=== PATIENT | male | born 1960 | race Caucasian/White ===

== ENCOUNTER 2017-02-24 20:35 | Emergency (ER) | payer MEDICARE, OTHER ==
[2017-02-24 21:06] LABS: Bilirubin Negative (Negative); Blood, Urine Negative (Negative); Glucose, Urine (Dipstick) Negative (Negative); Ketone, Urine Negative (Negative); Nitrite Negative (Negative); Protein, Urine (Dipstick) Negative (Neg-Trace); Urobilinogen 0.2 mg/dL (0.2-1.0)
[2017-02-24 21:12] LABS: Amphetamine Not Detected (NotDetected); Methadone Not Detected (NotDetected); Methamphetamine Not Detected (NotDetected)
[2017-02-24 21:59] LABS: #Eosinphils 0.4 thou/uL (0.0-0.7); #Lymphocytes 2.6 thou/uL (1.20-3.40); #Monocytes 1.2 thou/uL (0.11-0.59); #Neutrophils 9.1 thou/uL (1.40-6.50); %Basophils 0.3 % (0.0-1.0); %Eosinophils 2.7 % (0.0-10.0); %Lymphocytes 19.7 % (21.0-51.0); %Monocytes 8.8 % (0.0-10.0); Hematocrit 37.1 % (42.0-52.0); Mean Platelet Volume 6.5 fL (7.4-10.4); Red Blood Cell (RBC) Count 3.91 mill/uL (4.70-6.10); White Blood Cell (WBC) Count 13.3 thou/uL (4.8-10.8)
[2017-02-24 22:25] LABS: ALT (SGPT) 17 U/L (8-55); AST (SGOT) 15 U/L (5-34); Acetaminophen Less than 6.0 mcg/mL (10.0-30.0); Alkaline Phosphatase 70 U/L (40-150); Anion Gap 13 mmol/L (10-20); BUN (Urea Nitrogen) 13 mg/dL (8.4-25.7); Bilirubin, Total 0.2 mg/dL (0.2-1.2); Calc. Creatinine Clearance 0 mL/min (70-130); Calcium 8.9 mg/dL (7.8-10.44); Carbon Dioxide 25 mmol/L (22-29); Chloride 94 mmol/L (98-107); Estimated GFR-MDRD 60; Globulin 2.9 g/dL (2.4-3.5); Protein, Total 6.6 g/dL (6.0-8.3); Salicylate Less than 8.0 mg/dL (15.0-30.0)
== END 2017-02-25 11:53 ==
LOC: ERS 20:35
DX: R45.851 Suicidal ideations (principal); E78.5 Hyperlipidemia, unspecified; I11.0 Hypertensive heart disease with heart failure; I50.9 Heart failure, unspecified; F25.9 Schizoaffective disorder, unspecified; Z79.84 Long term (current) use of oral hypoglycemic drugs; Z79.899 Other long term (current) drug therapy; Z79.82 Long term (current) use of aspirin
CPT/HCPCS: 36415; 80053; 80306; 80307; 81003; 84443; 85025; 99285

== ENCOUNTER 2017-06-20 21:32 | Emergency (ER) | payer OTHER ==
[2017-06-20 22:30] LABS: #Basophils 0.1 thou/uL (0.0-0.2); #Eosinphils 0.2 thou/uL (0.0-0.7); #Lymphocytes 1.8 thou/uL (1.20-3.40); #Monocytes 0.9 thou/uL (0.11-0.59); #Neutrophils 5.1 thou/uL (1.40-6.50); %Eosinophils 2.9 % (0.0-10.0); %Lymphocytes 21.7 % (21.0-51.0); %Monocytes 11.1 % (0.0-10.0); %Neutrophils 63.3 % (42.0-75.0); Hemoglobin 13.3 g/dL (14.0-18.0); Mean Corpuscular HGB CONC 35.5 g/dL (32.0-36.0); Mean Corpuscular Hemoglobin 32.9 pg (27.0-31.0); Mean Corpuscular Volume 92.6 fl (80.0-94.0); Mean Platelet Volume 7.1 fL (7.4-10.4); Platelet Count 185 thou/uL (130-400); RBC Distribution Width 12.2 % (11.5-14.5); Red Blood Cell (RBC) Count 4.06 mill/uL (4.70-6.10); White Blood Cell (WBC) Count 8.1 thou/uL (4.8-10.8)
[2017-06-20 22:50] LABS: Bilirubin Negative (Negative); Blood, Urine Negative (Negative); Clarity CLEAR (Clear); Glucose, Urine (Dipstick) Negative (Negative); Leukocyte Negative (Negative); Nitrite Negative (Negative); Protein, Urine (Dipstick) Negative (Neg-Trace); Specific Gravity, Urine 1.008 (1.002-1.036); Urobilinogen 0.2 mg/dL (0.2-1.0); pH, Urine 6.5 (5.0-9.0)
[2017-06-20 22:54] LABS: ALT (SGPT) 12 U/L (8-55); AST (SGOT) 12 U/L (5-34); Alkaline Phosphatase 68 U/L (40-150); Anion Gap 11 mmol/L (10-20); BUN (Urea Nitrogen) 9 mg/dL (8.4-25.7); Bilirubin, Total 0.4 mg/dL (0.2-1.2); Calc. Creatinine Clearance 0 mL/min (70-130); Calcium 9.5 mg/dL (7.8-10.44); Carbon Dioxide 26 mmol/L (22-29); Chloride 91 mmol/L (98-107); Estimated GFR-MDRD 52; Globulin 2.8 g/dL (2.4-3.5); Glucose 96 mg/dL (70-105); Lipase 35 U/L (8-78); Potassium 4.2 mmol/L (3.5-5.1); Protein, Total 6.8 g/dL (6.0-8.3); Sodium 124 mmol/L (136-145)
[2017-06-20] MEDS ORDERED: Morphine 4 MG/ML Carpuject ONE (23:30)
[2017-06-20] MEDS ORDERED: Ondansetron HCl/PF 4 MG/2 ML Vial ONE (23:30)
--- NOTE | 2017-06-20 23:34 | RAD ---
CHEST ONE VIEW 06/20/17 HISTORY: Emergency exam. COMPARISON: Chest one view 02/16/17. FINDINGS: Lungs are clear. No pneumothorax or effusion. The cardiac silhouette and mediastinal contours are within normal limits. IMPRESSION: No acute intrathoracic abnormality. No significant change. POS: [facility]
--- NOTE | 2017-06-21 13:47 | CT ---
PRELIMINARY REPORT/[facility]/EMERGENCY AFTER HOURS PROCEDURE: EXAM: CT Abdomen and Pelvis With Intravenous Contrast EXAM DATE/TIME: Exam ordered 06/21/2017 1:31 AM CLINICAL HISTORY: 57 years old, male; Pain and signs and symptoms; Nausea and vomiting; Abdominal pain; Periumbilical; Prior surgery; Patient HX: ; Er 3; M57 presents to ed C/O abd pain, onset x 3 days. Exacerbated by ea ting. Pain is generalized and quality is sharp and stabbing. Associated with n/v, feeling bloated, 1 episode of dark, tarry stool. Denies diarrhea, fever, chills. Surgical HX of bladder surgery x2. TECHNIQUE: Axial computed tomography images of the abdomen and pelvis with intravenous contrast. Coronal reformatted images were created and reviewed. COMPARISON: No relevant prior studies available. FINDINGS: Lower thorax: Trace left pleural effusion. ABDOMEN: Liver: Unremarkable. No mass. Gallbladder and bile ducts: Cholelithiasis. No cholecystitis or biliary ductal dilatation. Pancreas: Unremarkable. No mass. No ductal dilation. Spleen: Unremarkable. No splenomegaly. Adrenals: Unremarkable. No mass. Kidneys and ureters: Severe bilateral hydroureteronephrosis involving the length of both ureters, without obstructive urolithiasis. Substantial atrophy and cortical scarring of the left kidney. Stomach and bowel: Unremarkable. No obstruction. No mucosal thickening. Appendix: Normal appendix. PELVIS: Bladder: Urinary bladder is distended. Bladder otherwise unremarkable. Reproductive: Unremarkable as visualized. ABDOMEN and PELVIS: Intraperitoneal space: Unremarkable. No free air. No significant fluid collection. Bones/joints: No acute fracture. No dislocation. Soft tissues: Unremarkable. Vasculature: Unremarkable. No abdominal aortic aneurysm. Lymph nodes: Unremarkable. No enlarged lymph nodes. IMPRESSION: Severe bilateral hydroureteronephrosis involving the length of both ureters, without obstructive urol ithiasis. Distended urinary bladder. Thank you for allowing us to participate in the care of your patient. Dictated and Authenticated by: West Mac MD 06/21/2017 1:59 AM Central Time ([place] & [place]) FINAL REPORT EMERGENCY AFTER HOURS ABDOMEN AND PELVIC CT SCAN WITH IV CONTRAST: Date: 06/20/17 Time: 0133 hours FINDINGS/IMPRESSION: Severe bilateral hydroureteronephrosis involving the entire ureters, somewhat worse on the right side , but stable from 06/17/15 study. Severe scarring of the left kidney with considerable left renal vol ume loss. Small gallstone without gallbladder wall thickening or pericholecystic fluid. Normal appear ing appendix. No renal or calculi. IMPRESSION: Severe but overall stable bilateral ureteropelvic hydronephrosis, greater on the right side. Severe s carring left kidney. Small gallstone. No evidence for other significant acute process. Report in agreement with preliminary report given on-call by Shirley. POS: [facility]
== END 2017-06-21 03:55 | disposition home or self-care (01) ==
LOC: ERS 21:32
DX: R33.9 Retention of urine, unspecified (principal); R10.9 Unspecified abdominal pain; E78.5 Hyperlipidemia, unspecified; I11.0 Hypertensive heart disease with heart failure; I50.9 Heart failure, unspecified; Z79.899 Other long term (current) drug therapy; Z79.82 Long term (current) use of aspirin
CPT/HCPCS: 36415; 51702; 71045; 74177; 80053; 81003; 83690; 85025; 96361; 96374; 96375; J2270; J2405

== ENCOUNTER 2017-07-20 07:18 | Day surgery (SDC) | payer OTHER ==
[2017-07-17 11:44] VITALS: BMI 39.4
[2017-07-20] MEDS ORDERED: Levofloxacin 500 mg/D5W 100 ml Premix Bag ONE (08:27)
[2017-07-20 08:39] LABS: #Basophils 0.1 thou/uL (0.0-0.2); #Eosinphils 0.2 thou/uL (0.0-0.7); #Lymphocytes 1.7 thou/uL (1.20-3.40); #Monocytes 0.9 thou/uL (0.11-0.59); #Neutrophils 4.8 thou/uL (1.40-6.50); %Basophils 1.2 % (0.0-1.0); %Lymphocytes 22.3 % (21.0-51.0); %Neutrophils 61.6 % (42.0-75.0); Mean Corpuscular HGB CONC 35.1 g/dL (32.0-36.0); Mean Corpuscular Hemoglobin 32.1 pg (27.0-31.0); Mean Corpuscular Volume 91.5 fl (80.0-94.0); Mean Platelet Volume 6.9 fL (7.4-10.4); Platelet Count 205 thou/uL (130-400); RBC Distribution Width 12.4 % (11.5-14.5); Red Blood Cell (RBC) Count 4.35 mill/uL (4.70-6.10); White Blood Cell (WBC) Count 7.7 thou/uL (4.8-10.8)
[2017-07-20 08:41] LABS: PTT 28.2 SEC (22.9-36.1); Prothrombin Time 13.4 SEC (12.0-14.7)
== END 2017-07-20 09:05 | disposition home or self-care (01) ==
LOC: SDC 07:18 → EEVIPCON 07:18 → SDC 09:05
PROVIDERS: ATTEND Urology
DX: N40.1 Benign prostatic hyperplasia with lower urinary tract symptoms (principal); R33.8 Other retention of urine; R39.14 Feeling of incomplete bladder emptying; E11.22 Type 2 diabetes mellitus with diabetic chronic kidney disease; I12.9 Hypertensive chronic kidney disease with stage 1 through stage 4 chronic kidney disease, or unspecified chronic kidney disease; N18.3 Chronic kidney disease, stage 3 (moderate); E87.1 Hypo-osmolality and hyponatremia; E78.5 Hyperlipidemia, unspecified; F10.10 Alcohol abuse, uncomplicated; E03.9 Hypothyroidism, unspecified; F25.9 Schizoaffective disorder, unspecified; E66.9 Obesity, unspecified; F41.9 Anxiety disorder, unspecified; F32.9 Major depressive disorder, single episode, unspecified; Z53.8 Procedure and treatment not carried out for other reasons; Z68.39 Body mass index [BMI] 39.0-39.9, adult; Z79.84 Long term (current) use of oral hypoglycemic drugs; Z79.82 Long term (current) use of aspirin; Z79.899 Other long term (current) drug therapy; Z88.8 Allergy status to other drugs, medicaments and biological substances; Z96.0 Presence of urogenital implants; Z98.890 Other specified postprocedural states; Z87.891 Personal history of nicotine dependence
CPT/HCPCS: 85025; 85610; 85730; J1956

== ENCOUNTER 2017-08-05 05:40 | Day surgery (SDC) | payer OTHER ==
[2017-08-04 16:07] VITALS: BMI 40.6
[2017-08-05 06:40] LABS: #Eosinphils 0.3 thou/uL (0.0-0.7); #Lymphocytes 1.9 thou/uL (1.20-3.40); #Monocytes 0.9 thou/uL (0.11-0.59); #Neutrophils 5.5 thou/uL (1.40-6.50); %Basophils 0.5 % (0.0-1.0); %Eosinophils 3.4 % (0.0-10.0); %Lymphocytes 22.2 % (21.0-51.0); %Monocytes 10.6 % (0.0-10.0); %Neutrophils 63.3 % (42.0-75.0); Hemoglobin 13.2 g/dL (14.0-18.0); Mean Corpuscular HGB CONC 34.4 g/dL (32.0-36.0); Mean Corpuscular Hemoglobin 31.8 pg (27.0-31.0); Mean Corpuscular Volume 92.4 fl (80.0-94.0); Mean Platelet Volume 6.9 fL (7.4-10.4); Platelet Count 168 thou/uL (130-400); RBC Distribution Width 12.3 % (11.5-14.5); Red Blood Cell (RBC) Count 4.17 mill/uL (4.70-6.10); White Blood Cell (WBC) Count 8.7 thou/uL (4.8-10.8)
[2017-08-05 06:45] LABS: Prothrombin Time 13.6 SEC (12.0-14.7)
[2017-08-05 06:52] LABS: Anion Gap 12 mmol/L (10-20); BUN (Urea Nitrogen) 19 mg/dL (8.4-25.7); Calc. Creatinine Clearance 87 mL/min (70-130); Calcium 9.2 mg/dL (7.8-10.44); Carbon Dioxide 25 mmol/L (22-29); Chloride 99 mmol/L (98-107); Estimated GFR-MDRD 43; Glucose 128 mg/dL (70-105); Potassium 4.1 mmol/L (3.5-5.1); Sodium 132 mmol/L (136-145)
[2017-08-05] MEDS ORDERED: Levofloxacin 500 mg/D5W 100 ml Premix Bag ONE (07:00)
[2017-08-05] MEDS ORDERED: Iothalamate Meglumine 60% 50 ML VIAL FS ONE (08:28)
[2017-08-05] MEDS ORDERED: Fentanyl 100 MCG/2 ML VIAL ONE (08:30)
[2017-08-05] MEDS ORDERED: Bupivacaine HCl 0.5%/Epinephrine 1:200,000/PF 30 ml Vial ONE (10:38)
--- NOTE | 2017-08-05 13:45 | OP ---
DATE OF PROCEDURE: 08/05/2017 PREOPERATIVE DIAGNOSIS: Incomplete emptying. POSTOPERATIVE DIAGNOSIS: Incomplete emptying. PROCEDURE PERFORMED: Cystoscopy and placement of suprapubic tube. SURGEON: Dr. Ziggy Ruggiero. ANESTHETIC: General and local. ESTIMATED BLOOD LOSS: Minimal. FINDINGS: He has no evidence of stricture disease. He has, at most, mild BPH. He has probably had ureteral reimplants done. Certainly, he has had some scarring on the bladder, in the bladder neck an d trigone area. The ureteral orifices appeared to be more medial than you would generally see. He d oes not have anything that would suggest he has had an augmentation, cystoplasty or anything of that nature. There is no tumor, foreign body, or stone. Did not do retrograde studies. He has had prior CAT scans that have shown some hydro, but this has been felt to be related to the fact that he had s o much fluid in his bladder when he has come into the emergency centers. His bladder has been quite distended. His creatinine is 1.67 today and that is with having had a catheter in now for a month or so, so I think now probably he is at stable renal function for him. OPERATIVE TECHNIQUE: After obtaining written and verbal consent from the patient after receiving IV antibiotics, he was taken to the operating suite. He was placed in the supine position on the [facility] ent table. PlexiPulses were placed on his lower extremities and turned on. He was given a general a nesthetic, oral obturator intubation. He was placed in the dorsal lithotomy position. He was steril lexii prepped and draped for the above procedure. Cystoscopy was performed with a 22-Icelandic sheath. T his was well lubricated, passed under direct vision through the male urethra into the urinary bladder with the aid of a video camera and monitor and a 30-degree lens. The bladder was filled and emptied a number of times and examined both 30 and 70-degree lens. At this point, going through his prior s uprapubic site, we passed a small spinal needle and sought coming to the anterior wall of the bladder under direct vision with the cystoscope. It seemed like this was in good position to use as it had been there and use this suprapubic in the path. We numbed up this area with 0.25% Marcaine with epin ephrine. We filled up his bladder until it was easily palpable and removed the scope, passed a Lowsl ey retractor, brought it to the undersurface of the suprapubic site and cut down on this site through the skin and then through the subcutaneous fat and tissues until the Lowsley came out through the in cision. We then used this to direct a 22 Icelandic Quigley catheter with a silk stitch placed around it i nto the bladder and blew up the balloon under direct vision with 30 mL. There was minimal bleeding. The instruments were removed. The Quigley catheter was also placed, 20 Icelandic, 30 mL, both irrigated well, both clear. Suprapubic site was sutured to the suprapubic tube with 0 silk stitch and dressing s were placed. The patient was taken out of the dorsal lithotomy position, awakened, extubated, and taken by stretcher to the recovery room.
[2017-08-05] MEDS ORDERED: Ondansetron HCl/PF 4 MG/2 ML Vial ONE (16:25)
[2017-08-05] MEDS ORDERED: Glycopyrrolate 0.2 MG/ML 5 ML SYRINGE ONE (16:25)
[2017-08-05] MEDS ORDERED: ePHEDrine/0.9% NaCl/PF SYRINGE 50 mg/10 ml ONE (16:25)
[2017-08-05] MEDS ORDERED: Lidocaine 1% PF 5 ML VIAL ONE (16:25)
[2017-08-05] MEDS ORDERED: PROPOFOL 200 MG/20 ML VIAL ONE (16:25)
== END 2017-08-05 13:00 | disposition home or self-care (01) ==
LOC: SDC 05:40
PROVIDERS: ATTEND Urology
PROC: 0T9B40Z Drainage of Bladder with Drainage Device, Percutaneous Endoscopic Approach (ICD-10-PCS; principal; 2017-08-05)
DX: R33.9 Retention of urine, unspecified (principal); N40.0 Benign prostatic hyperplasia without lower urinary tract symptoms; I10 Essential (primary) hypertension; E78.00 Pure hypercholesterolemia, unspecified; E11.9 Type 2 diabetes mellitus without complications; Z86.73 Personal history of transient ischemic attack (TIA), and cerebral infarction without residual deficits; Z79.82 Long term (current) use of aspirin; Z79.84 Long term (current) use of oral hypoglycemic drugs; Z79.899 Other long term (current) drug therapy; Z88.8 Allergy status to other drugs, medicaments and biological substances
CPT/HCPCS: 36415; 36416; 80048; 85025; 85610; 85730; J0670; J1956; J2001; J2405; J2704; J3010; Q9961

== ENCOUNTER 2017-12-13 16:14 | Emergency (ER) | payer OTHER ==
[2017-12-13 16:41] LABS: Bilirubin Negative (Negative); Blood, Urine Moderate (Negative); Clarity CLOUDY (Clear); Glucose, Urine (Dipstick) Negative (Negative); Leukocyte Large (Negative); Nitrite Positive (Negative); Protein, Urine (Dipstick) 100 mg/dL (Neg-Trace); Specific Gravity, Urine 1.004 (1.002-1.036); Urobilinogen 0.2 mg/dL (0.2-1.0)
[2017-12-13 16:44] LABS: Bacteria/HPF 2+ HPF (None Seen); RBC/HPF 0-3 HPF (0-3); Squamous Epithelial 0-3 HPF (0-3)
[2017-12-13 16:45] LABS: Hyaline Casts/LPF 0-3 HYALINE CAST LPF (0-3 Hyaline); Manual Microscopic Reviewed? No Path Casts Seen; Pathc Cast-AUWi Flag 4.36 (0-2.49)
[2017-12-13 16:51] LABS: #Eosinphils 0.3 thou/uL (0.0-0.7); #Lymphocytes 1.5 thou/uL (1.20-3.40); #Monocytes 1.2 thou/uL (0.11-0.59); %Basophils 0.4 % (0.0-1.0); %Eosinophils 2.5 % (0.0-10.0); %Lymphocytes 12.4 % (21.0-51.0); %Monocytes 9.9 % (0.0-10.0); %Neutrophils 74.8 % (42.0-75.0); Hemoglobin 13.1 g/dL (14.0-18.0); Mean Corpuscular HGB CONC 35.4 g/dL (32.0-36.0); Mean Corpuscular Hemoglobin 32.4 pg (27.0-31.0); Mean Corpuscular Volume 91.5 fL (78.0-98.0); Mean Platelet Volume 6.7 fL (7.4-10.4); Platelet Count 217 thou/uL (130-400); RBC Distribution Width 12.1 % (11.5-14.5); Red Blood Cell (RBC) Count 4.03 mill/uL (4.70-6.10)
[2017-12-13 17:11] LABS: ALT (SGPT) 18 U/L (8-55); AST (SGOT) 18 U/L (5-34); Albumin 3.9 g/dL (3.5-5.0); Alkaline Phosphatase 78 U/L (40-150); Anion Gap 14 mmol/L (10-20); BUN (Urea Nitrogen) 13 mg/dL (8.4-25.7); Bilirubin, Total 0.2 mg/dL (0.2-1.2); Calc. Creatinine Clearance 0 mL/min (70-130); Calcium 9.8 mg/dL (7.8-10.44); Carbon Dioxide 26 mmol/L (22-29); Chloride 96 mmol/L (98-107); Estimated GFR-MDRD 46; Glucose 79 mg/dL (70-105); Potassium 4.4 mmol/L (3.5-5.1); Protein, Total 6.9 g/dL (6.0-8.3); Sodium 132 mmol/L (136-145)
== END 2017-12-13 19:01 | disposition home or self-care (01) ==
LOC: ERS 16:14
DX: N30.00 Acute cystitis without hematuria (principal); I11.0 Hypertensive heart disease with heart failure; I50.9 Heart failure, unspecified; E78.5 Hyperlipidemia, unspecified; Z79.899 Other long term (current) drug therapy
CPT/HCPCS: 36415; 80053; 81003; 81015; 85025; 87077; 87086; 87186; 99283

== ENCOUNTER 2017-12-24 23:15 | Emergency (ER) | payer OTHER ==
[2017-12-25] MEDS ORDERED: cefTRIAXone\\ROCEPHIN 1 GM VIAL ONE (00:48)
[2017-12-25] MEDS ORDERED: Fentanyl 100 MCG/2 ML VIAL ONE (05:54)
[2017-12-25 09:43] LABS: #Eosinphils 0.2 thou/uL (0.0-0.7); #Lymphocytes 1.4 thou/uL (1.20-3.40); #Monocytes 0.8 thou/uL (0.11-0.59); #Neutrophils 7.2 thou/uL (1.40-6.50); %Basophils 0.3 % (0.0-1.0); %Eosinophils 2.3 % (0.0-10.0); %Lymphocytes 14.6 % (21.0-51.0); %Neutrophils 74.9 % (42.0-75.0); Hemoglobin 13.1 g/dL (14.0-18.0); Mean Corpuscular Hemoglobin 32.8 pg (27.0-31.0); Mean Corpuscular Volume 93.7 fL (78.0-98.0); Mean Platelet Volume 6.7 fL (7.4-10.4); Platelet Count 197 thou/uL (130-400); RBC Distribution Width 12.7 % (11.5-14.5); Red Blood Cell (RBC) Count 3.98 mill/uL (4.70-6.10); White Blood Cell (WBC) Count 9.6 thou/uL (4.8-10.8)
[2017-12-25 10:03] LABS: Bilirubin Negative (Negative); Blood, Urine Large (Negative); Clarity CLOUDY (Clear); Glucose, Urine (Dipstick) Negative (Negative); Leukocyte Large (Negative); Nitrite Positive (Negative); Protein, Urine (Dipstick) 100 mg/dL (Neg-Trace); Specific Gravity, Urine 1.013 (1.002-1.036); Urobilinogen 0.2 mg/dL (0.2-1.0)
[2017-12-25 10:03] LABS: ALT (SGPT) 12 U/L (8-55); AST (SGOT) 10 U/L (5-34); Albumin 3.9 g/dL (3.5-5.0); Alkaline Phosphatase 77 U/L (40-150); Anion Gap 13 mmol/L (10-20); BUN (Urea Nitrogen) 14 mg/dL (8.4-25.7); Bilirubin, Total 0.4 mg/dL (0.2-1.2); Calc. Creatinine Clearance 0 mL/min (70-130); Calcium 9.2 mg/dL (7.8-10.44); Carbon Dioxide 26 mmol/L (22-29); Chloride 99 mmol/L (98-107); Estimated GFR-MDRD 43; Globulin 2.9 g/dL (2.4-3.5); Glucose 166 mg/dL (70-105); Potassium 4.9 mmol/L (3.5-5.1); Protein, Total 6.8 g/dL (6.0-8.3); Sodium 133 mmol/L (136-145)
[2017-12-25 10:05] LABS: Bacteria/HPF Rare-Few HPF (None Seen); Hyaline Casts/LPF 0-3 HYALINE CAST LPF (0-3 Hyaline); Pathc Cast-AUWi Flag 0.58 (0-2.49); RBC/HPF GREATER THAN 50-TNTC HPF (0-3); Squamous Epithelial 0-3 HPF (0-3)
--- NOTE | 2017-12-25 10:15 | MRI ---
PRELIMINARY REPORT/[facility]/EMERGENTY AFTER-HOURS PROCEDURE MR Cervical Spine Without Intravenous Contrast EXAM DATE/TIME: Exam ordered 12/25/2017 12:17 AM CLINICAL HISTORY: 57 years old, male; Injury or trauma; Fall; Initial encounter; Sprain or strain, cervical ligaments; Injury date: 12-24-2017; Injury details: [id number] presents to the ed as a transfer from [facility] that he had fallen a couple of times. Loami was concerned of irregular CT findings of c4-c5 and is nee ding further lab imagery. Pt. Reports pain in his neck and knees. Pt. Also reports chronic SHORTNESS OF BREATH that is more laborious over the past week than usual. TECHNIQUE: Magnetic resonance images of the cervical spine without intravenous contrast in multiple planes. COMPARISON: No relevant prior studies available. FINDINGS: Vertebrae: No acute cervical spine fracture. Spinal cord: Normal. Normal signal. Soft tissues: There is trace prevertebral edema possibly representing ligamentous strain. Vasculature: Normal. Normal vertebral artery flow voids are visualized. DISCS/SPINAL CANAL/NEURAL FORAMINA: C2-C3: Normal. No significant disc disease. No stenosis. C3-C4: Normal. No significant disc disease. No stenosis. C4-C5: At C4-C5 and C5-C6 there is mild disc osteophyte complex resulting in mild stenosis. C5-C6: See above. C6-C7: Normal. No significant disc disease. No stenosis. C7-T1: Normal. No significant disc disease. No stenosis. IMPRESSION: 1. There is trace prevertebral edema possibly representing ligamentous strain. 2. No acute cervical spine fracture. 3. Mild degenerative disease as above. Thank you for allowing us to participate in the care of your patient. Dictated and Authenticated by: Bill Leonard MD 12/25/2017 2:27 AM Central Time ([place] & [place]) FINAL REPORT Findings and impression are concordant with the preliminary report. Findings are most likely typical of chronic changes. POS: [facility]
--- NOTE | 2017-12-26 03:04 | CON ---
DATE OF CONSULTATION: 12/25/2017 CHIEF COMPLAINT: Falls. HISTORY OF PRESENT ILLNESS: This is a 57-year-old male with significant past medical history of rece nt UTI, cardiac history, congestive heart failure, neurological disorder, schizoaffective disorder, w ho was consulted to Neurosurgery for evaluation of neck pain. Patient is transfer from [place] to our ER on 12/24/2017 for repeated falls and neck pain. Patient states that he was seen in the ER for a UTI and treated yesterday afternoon. He then proceeded to walk to dialysis and then went home to his hotel/motel that he lives in with his adult son. He states that he fell a few times and scrap ed his knees and his elbow and hit his head on the TV console. The patient was taken by EMS to [facility] ER where they did a CT scan, which showed irregular CT cervical findings of C4-C5 and needed further imaging. The patient reports pain in neck and knees. This morning in the ER, patient is com fortable lying in bed, does not appear to be in any visible distress. He states that his neck pain i s 10/10. However, during our conversation, he gets sleepy and almost falls asleep several times. Th e patient is moving all 4 extremities; however, he states that he has some numbness and tingling on t he left side, this is the same distribution of deficit that he had with prior stroke several years ag o. The patient uses a walker to get around due to deficits. The patient has tangential speech while we speak about his history. PAST MEDICAL HISTORY: Cystitis, enlarged prostate, cardiac history, congestive heart failure, hyperl ipidemia, stroke, hypertension, renal disease. The patient is noncompliant with meds. Patient state s that he has also been seen for neurological issues. Schizoaffective disorder, which includes histo ry of suicidal ideations. PAST SURGICAL HISTORY: Left knee and bladder surgery x2. SOCIAL HISTORY: Includes alcohol, patient drinks socially/rarely. Patient denies any drug use or sm oking. The patient lives in a motel with adult son. FAMILY HISTORY: Parental history of malignancy, primary . ALLERGIES: NAVANE CAPSULE, the patient states it is dizziness. No other drug allergies noted. CURRENT MEDICATIONS: Docusate sodium, benztropine, divalproex, Lasix, lisinopril, nitroglycerin, flu oxetine, pravastatin, finasteride, potassium chloride, tamsulosin, risperidone, glipizide, donepezil, aspirin, levothyroxine, trazodone, Keflex, Pyridium. REVIEW OF SYSTEMS: CONSTITUTIONAL: Denies chills or fever. EYES: Negative review of systems. Denies eye pain, any eye discharge or vision changes. ENT: Hearing is intact. No changes in hearing. No difficulty swallowing. Denies any rhinorrhea or sore throat. CARDIOVASCULAR: The patient denies any chest pain, palpitations. RESPIRATORY: The patient reports shortness of breath. GASTROINTESTINAL: Denies any abdominal pain, constipation, or diarrhea. No nausea or vomiting. MUSCULOSKELETAL: The patient reports neck pain and bilateral knee pain. SKIN: No rashes, no headache. PHYSICAL EXAMINATION VITAL SIGNS: Blood pressure 124/75, heart rate 65, respiratory rate 18, temperature 97.7, pain 10, a nd O2 sats 96 on room air. GENERAL: The patient is lying in hospital bed. The patient is afebrile. Pulse is normal. Patient is nontoxic, appears to be pain free, resting comfortably. He is alert and oriented to person, place , and time. HEAD: Atraumatic, normocephalic. EYES: Eye exam is normal. Pupils are equal, round, reactive to light. Extraocular movements are in tact. Eyelids are normal on inspection. ENT: Hearing is intact. Moist mucous membranes. NECK: Tenderness to palpation at the level of C4 along with paraspinals and trapezius on the left si de. RESPIRATORY: Normal work of breathing room air. CARDIOVASCULAR: Regular rate and rhythm. S1, S2 normal. NEUROLOGIC: The patient is moving all four extremities. Patient is unwilling to giveforth good effo rt for strength exam on the left side. The patient is moving extremities; however, when asked to pro vide motor strength: He does not put forth any effort. Sensation is intact. Patient states that th ere is some numbness and tingling in the left arm and leg, but can feel me touching. Cranial nerves II-XII are intact. Patient is oriented to person, place, and time. Speech is normal, fluent. Shari l fund of knowledge. IMAGING: MRI of the cervical spine, there is trace prevertebral edema, possibly when representing li gamentous strain. There is no acute cervical spine fractures, mild degenerative disk at C4-C5. ASSESSMENT AND PLAN: At this time, the patient has neck pain associated with no significant spinal s tenosis or fractures. There is no neurosurgical intervention necessary at this time. We will advise that the patient should continue to wear C-collar and follow up with our office after discharge.
== END 2017-12-25 12:02 | disposition home or self-care (01) ==
LOC: ERS 23:15
DX: S16.1XXA Strain of muscle, fascia and tendon at neck level, initial encounter (principal); N39.0 Urinary tract infection, site not specified; I11.0 Hypertensive heart disease with heart failure; I50.9 Heart failure, unspecified; E78.5 Hyperlipidemia, unspecified; Z79.82 Long term (current) use of aspirin; W19.XXXA Unspecified fall, initial encounter
CPT/HCPCS: 36415; 36416; 72141; 80053; 81003; 85025; 93005; 96365; 96375; J0696; J3010

== ENCOUNTER 2018-01-15 01:17 | Emergency (ER) | payer OTHER ==
[2018-01-15 02:04] LABS: #Eosinphils 0.3 thou/uL (0.0-0.7); #Lymphocytes 1.5 thou/uL (1.20-3.40); #Neutrophils 7.5 thou/uL (1.40-6.50); %Basophils 0.3 % (0.0-1.0); %Eosinophils 3.3 % (0.0-10.0); %Lymphocytes 14.8 % (21.0-51.0); %Monocytes 9.7 % (0.0-10.0); %Neutrophils 71.9 % (42.0-75.0); Hemoglobin 13.3 g/dL (14.0-18.0); Mean Corpuscular HGB CONC 36.4 g/dL (32.0-36.0); Mean Corpuscular Hemoglobin 33.1 pg (27.0-31.0); Mean Corpuscular Volume 90.9 fL (78.0-98.0); Mean Platelet Volume 6.5 fL (7.4-10.4); Platelet Count 209 thou/uL (130-400); RBC Distribution Width 12.1 % (11.5-14.5); Red Blood Cell (RBC) Count 4.01 mill/uL (4.70-6.10); White Blood Cell (WBC) Count 10.4 thou/uL (4.8-10.8)
[2018-01-15 02:20] LABS: ALT (SGPT) 15 U/L (8-55); AST (SGOT) 16 U/L (5-34); Acetaminophen Less than 6.0 mcg/mL (10.0-30.0); Albumin 4.1 g/dL (3.5-5.0); Alcohol Less than 10 mg/dL (Less than 10); Alkaline Phosphatase 85 U/L (40-150); Anion Gap 12 mmol/L (10-20); BUN (Urea Nitrogen) 14 mg/dL (8.4-25.7); Bilirubin, Total 0.3 mg/dL (0.2-1.2); Calc. Creatinine Clearance 0 mL/min (70-130); Calcium 9.5 mg/dL (7.8-10.44); Carbon Dioxide 26 mmol/L (22-29); Chloride 97 mmol/L (98-107); Estimated GFR-MDRD 47; Globulin 3.1 g/dL (2.4-3.5); Glucose 157 mg/dL (70-105); Potassium 4.1 mmol/L (3.5-5.1); Protein, Total 7.2 g/dL (6.0-8.3); Salicylate Less than 8.0 mg/dL (15.0-30.0); Sodium 131 mmol/L (136-145)
[2018-01-15 02:26] LABS: Bilirubin Negative (Negative); Blood, Urine Moderate (Negative); Clarity CLEAR (Clear); Glucose, Urine (Dipstick) 100 mg/dL (Negative); Leukocyte Trace (Negative); Nitrite Positive (Negative); Protein, Urine (Dipstick) Negative (Neg-Trace); Specific Gravity, Urine 1.002 (1.002-1.036); Urobilinogen 0.2 mg/dL (0.2-1.0)
[2018-01-15 02:53] LABS: Amphetamine Not Detected (NotDetected); Barbiturates Screen Not Detected (NotDetected); Benzodiazepine Screen Not Detected (NotDetected); Cocaine Metabolite Screen Not Detected (NotDetected); Medtox Control Line Valid? VALID (VALID); Medtox Reader # READER 4; Methadone Not Detected (NotDetected); Methamphetamine Not Detected (NotDetected); Opiate Screen Not Detected (NotDetected); Oxycodone Screen Not Detected (NotDetected); Phencyclidine (PCP) Not Detected (NotDetected); THC/Cannabinoid Screen Not Detected (NotDetected); Tricyclic Screen Not Detected (NotDetected)
[2018-01-15 03:28] LABS: WBC/HPF 0-3 HPF (0-3)
[2018-01-15 03:29] LABS: Bacteria/HPF Rare-Few HPF (None Seen); Hyaline Casts/LPF NONE SEEN LPF (0-3 Hyaline); Squamous Epithelial 0-3 HPF (0-3)
[2018-01-15] MEDS ORDERED: Nitrofurantoin Monohyd/M-Cryst 100 MG CAP PO SCH (06:45)
[2018-01-15] MEDS ORDERED: Benztropine 1 MG TAB PO SCH (11:15)
[2018-01-15] MEDS ORDERED: glipiZIDE 5 MG TAB PO SCH (11:15)
[2018-01-15] MEDS ORDERED: Levothyroxine Sodium 25 MCG TAB PO SCH (11:15)
[2018-01-15] MEDS ORDERED: FLUoxetine HCl 20 MG CAP PO SCH (11:15)
[2018-01-15] MEDS ORDERED: Docusate Sodium 100 MG/10 ML UDCUP PO SCH (11:15)
[2018-01-15] MEDS ORDERED: Potassium Chloride 20 MEQ TAB PO SCH (11:15)
[2018-01-15] MEDS ORDERED: Tamsulosin HCl 0.4 MG CAP PO SCH (11:15)
[2018-01-15] MEDS ORDERED: risperiDONE 3 MG TAB PO SCH ×2 (11:15→21:00)
[2018-01-15] MEDS ORDERED: Lisinopril 10 MG TAB PO SCH (11:15)
[2018-01-15] MEDS ORDERED: Furosemide 40 MG TAB ONE (11:55)
[2018-01-15] MEDS ORDERED: Donepezil HCl 5 MG TAB PO SCH (21:00)
[2018-01-15] MEDS ORDERED: traZODone HCl 50 MG TAB PO SCH (21:00)
[2018-01-15] MEDS ORDERED: Donepezil HCl 10 MG TAB PO SCH (21:00)
[2018-01-15] MEDS ORDERED: Divalproex Sodium DR 500 MG TAB PO SCH (21:00)
[2018-01-15] MEDS ORDERED: Finasteride 5 MG TAB PO SCH (21:00)
[2018-01-15] MEDS ORDERED: Pravastatin Sodium 20 MG TAB PO SCH (21:00)
[2018-01-16] MEDS ORDERED: Levothyroxine Sodium 25 MCG TAB PO SCH (06:00)
[2018-01-16] MEDS ORDERED: glipiZIDE 5 MG TAB PO SCH (07:30)
[2018-01-16] MEDS ORDERED: Potassium Chloride 20 MEQ TAB PO SCH (09:00)
[2018-01-16] MEDS ORDERED: Benztropine 1 MG TAB PO SCH (09:00)
[2018-01-16] MEDS ORDERED: FLUoxetine HCl 20 MG CAP PO SCH (09:00)
[2018-01-16] MEDS ORDERED: Tamsulosin HCl 0.4 MG CAP PO SCH (09:00)
[2018-01-16] MEDS ORDERED: Lisinopril 10 MG TAB PO SCH (09:00)
[2018-01-16] MEDS ORDERED: Finasteride 5 MG TAB PO SCH (09:00)
[2018-01-16] MEDS ORDERED: Divalproex Sodium DR 500 MG TAB PO SCH (21:00)
== END 2018-01-16 01:51 ==
LOC: ERS 01:17
DX: R45.851 Suicidal ideations (principal); N39.0 Urinary tract infection, site not specified; E78.5 Hyperlipidemia, unspecified; I11.0 Hypertensive heart disease with heart failure; I50.9 Heart failure, unspecified; Z79.899 Other long term (current) drug therapy; Z79.82 Long term (current) use of aspirin
CPT/HCPCS: 36415; 80053; 80306; 80307; 81003; 81015; 82550; 84443; 85025; 87077; 87086; 93005

== ENCOUNTER 2018-11-14 21:12 | Observation (INO) | payer MEDICARE, OTHER, SELFPAY ==
--- NOTE | 2018-11-14 21:43 | RAD ---
RADIOGRAPH CHEST 1 VIEW: DATE: 11/14/2018 HISTORY: 58-year-old male with dyspnea FINDINGS: There are no airspace densities, pulmonary edema, pneumothorax, or cardiomegaly. The lateral costophr enic angles are sharp. IMPRESSION: No acute cardiopulmonary findings.
[2018-11-14 21:55] LABS: #Basophils 0.1 thou/uL (0.0-0.2); #Eosinphils 0.3 thou/uL (0.0-0.7); #Lymphocytes 1.9 thou/uL (1.20-3.40); #Monocytes 1.3 thou/uL (0.11-0.59); #Neutrophils 8.5 thou/uL (1.40-6.50); %Basophils 0.7 % (0.0-1.0); %Eosinophils 2.3 % (0.0-10.0); %Lymphocytes 15.8 % (21.0-51.0); %Monocytes 10.4 % (0.0-10.0); %Neutrophils 70.9 % (42.0-75.0); Mean Corpuscular Volume 91.5 fL (78.0-98.0); Mean Platelet Volume 7.4 fL (7.4-10.4); Platelet Count 217 thou/uL (130-400); RBC Distribution Width 12.2 % (11.5-14.5); Red Blood Cell (RBC) Count 4.08 mill/uL (4.70-6.10)
[2018-11-14 21:56] LABS: Bilirubin Negative (Negative); Blood, Urine Small (Negative); Clarity CLOUDY (Clear); Glucose, Urine (Dipstick) Negative (Negative); Leukocyte Large (Negative); Nitrite Negative (Negative); Protein, Urine (Dipstick) Negative (Neg-Trace); Specific Gravity, Urine 1.004 (1.002-1.036); Urobilinogen 0.2 mg/dL (0.2-1.0); pH, Urine 6.5 (5.0-9.0)
[2018-11-14 21:58] LABS: Bacteria/HPF Rare-Few HPF (None Seen); Hyaline Casts/LPF 4-6 HYALINE CAST LPF (0-3 Hyaline); Pathc Cast-AUWi Flag 0.95 (0-2.49); RBC/HPF 0-3 HPF (0-3); Squamous Epithelial None Seen HPF (0-3)
--- NOTE | 2018-11-14 22:08 | CT ---
CT BRAIN NONCONTRAST: DATE: 11/14/2018 HISTORY: 58-year-old male status post head trauma from fall due to dizziness FINDINGS: There is no evidence of acute intra-axial or extra-axial hemorrhage. There is no midline shift or any other mass effect. There is no extra-axial fluid collection. There is no evidence of obstructive hydrocephalus. Calvarium is intact. IMPRESSION: No acute intracranial findings.
[2018-11-14 22:37] LABS: ALT (SGPT) 12 U/L (8-55); AST (SGOT) 14 U/L (5-34); Alkaline Phosphatase 68 U/L (40-150); Anion Gap 17 mmol/L (10-20); BUN (Urea Nitrogen) 17 mg/dL (8.4-25.7); Bilirubin, Total 0.4 mg/dL (0.2-1.2); Calc. Creatinine Clearance 0 mL/min (70-130); Calcium 8.9 mg/dL (7.8-10.44); Carbon Dioxide 21 mmol/L (22-29); Chloride 93 mmol/L (98-107); Estimated GFR-MDRD 54; Globulin 2.5 g/dL (2.4-3.5); Glucose 113 mg/dL (70-105); Lipase 20 U/L (8-78); Potassium 4.1 mmol/L (3.5-5.1); Protein, Total 6.5 g/dL (6.0-8.3); Sodium 127 mmol/L (136-145)
[2018-11-14] MEDS ORDERED: Ketorolac Tromethamine 30 MG/ML VIAL ONE (23:27)
[2018-11-15] MEDS ORDERED: cefTRIAXone\\ROCEPHIN 2 GM VIAL ONE (00:01)
--- NOTE | 2018-11-15 00:21 | RAD ---
Radiograph right knee 4 views: HISTORY: Traumatic knee pain after fall FINDINGS: No fracture or dislocation. No joint effusion. Mild to moderate joint space narrowing of medial eloisa rtment with mild sclerosis and tiny osteophytes. Lateral and patellofemoral compartments within normal limits. IMPRESSION: 1. Mild-moderate osteoarthrosis medial compartment. 2. No fracture.
[2018-11-15] MEDS ORDERED: Sodium Chloride 0.9% 1,000 ML IV SCH ×2 (01:20→03:04)
[2018-11-15] MEDS ORDERED: HYDROcodone/Acetaminophen 5/325 mg Tablet PO PRN ×2 (01:20)
[2018-11-15] MEDS ORDERED: Acetaminophen 325 MG TAB PO PRN (01:20)
[2018-11-15] MEDS ORDERED: Ondansetron PF 4 MG/2 ML Vial IVP PRN (01:20)
[2018-11-15] MEDS ORDERED: Ondansetron ODT 4 MG TAB SL PRN (01:20)
[2018-11-15 01:48] VITALS: BMI 46.5
[2018-11-15] MEDS ORDERED: Dextrose 50% Abboject 50 ML SYRINGE SLOW IVP PRN (03:03)
[2018-11-15] MEDS ORDERED: Dextrose 5% in Water 1,000 ML IV PRN (03:03)
[2018-11-15] MEDS ORDERED: HumaLOG 300 UNITS/3 ML VIAL SC PRN (03:03)
--- NOTE | 2018-11-15 04:58 | HP ---
PRIMARY CARE DOCTOR: The patient goes to the [facility]. CODE STATUS: Full code. TIME OF EVALUATION: 02:40 a.m. CHIEF COMPLAINT: Passing out. HISTORY OF PRESENT ILLNESS: A 58-year-old male patient with past medical history of several episodes of syncope where the patient has reported that he completely blacked out. The patient has associated cough and the episodes are becoming more frequent and last for a few seconds and then he recovers. He cannot associate any specific event with the symptoms and he reported that coughing is not always present when the symptoms come. No alleviating factors. The episodes responded by itself. Symptoms are severe. REVIEW OF SYSTEMS: CONSTITUTIONAL: No fever, chills, or generalized weakness. RESPIRATORY: No cough, sputum production, or shortness of breath. CARDIOVASCULAR: No chest pain or palpitation. GASTROINTESTINAL: No nausea. No vomiting, diarrhea, or abdominal pain. SHOOTER HELPER: The patient has an episode of syncope. No dizziness or headache. GENITOURINARY: No burning on urination. EXTREMITIES: No leg swelling. All other systems were reviewed and negative except for the findings mentioned above. PAST MEDICAL HISTORY: Positive for cystitis, BPH, hyperlipidemia, hypertension. PAST SURGICAL HISTORY: Left knee and bladder surgery x2. PSYCHIATRIC HISTORY: The patient has history of schizoaffective disorder. SOCIAL HISTORY: He quit smoking more than 10 years ago. The patient drinks socially rarely. No drugs. FAMILY HISTORY: Colon cancer in the family. KNOWN ALLERGIES: Cipro, Navane, Pamelor. REPORTED MEDICATIONS: Docusate, , divalproex, lisinopril, , finasteride, risperidone, glipizide, donepezil, aspirin, levothyroxine, trazodone, albuterol, and ipratropium/albuterol. PHYSICAL EXAMINATION: VITAL SIGNS: On presentation, blood pressure 148/93 with heart rate 73, respiratory rate was 20, temperature 98.8. Pain was 6/10. Oxygen saturation was 97% on room air. GENERAL: The patient is alert, oriented, and not in acute distress. HEENT: Eyes, normal conjunctivae. Moist oral mucosa. Anicteric. No JVD. RESPIRATORY: Bilateral air entry. No rales. No wheezes. Symmetric expansion. CARDIOVASCULAR: Normal rate, regular rhythm. No murmurs. No gallop. No edema. ABDOMEN: Soft. Normal bowel sounds. MUSCULOSKELETAL: Baseline range of motion and strength. SKIN: Warm and intact. No pallor. No rash. No redness. Capillary refill seems to be intact. NEUROLOGIC: No evidence of any new focal weakness. Cranial nerves seem to be intact. PSYCH: The patient is in good mood. No anxiety. Optimal judgment. IMAGING STUDIES: EKG was reviewed and it showed normal sinus rhythm at a rate of 72, with some PACs. Radiology; head CT, negative without contrast. No bleed, no mass. Chest x-ray, negative. No infiltrates. No other significant problems. LABORATORY DATA: Reviewed. The patient has white count 12, hemoglobin 13, MCV 91.5, platelet count 217. Chemistry; sodium 127, potassium 4.1, chloride 93, carbon dioxide 21, anion gap 17, BUN 17, creatinine 1.37, GFR 54, glucose 113, calcium 9.9, total bilirubin 0.4. LFTs were negative. Lipase 20. Urine was done and it was positive with white count greater than 50. ASSESSMENT AND PLAN: The patient will be placed in the hospital with following medical problems: 1. Syncope, unclear etiology. The patient has reported having real blackouts multiple times and this problem has been getting worse. We will do an echo. We will do a carotid Doppler. We will monitor on tele. Further workup depending on results of initial one. 2. Urinary tract infection. The patient has a positive urine. The patient received Rocephin in the ER which we will continue for now. We will follow cultures, we will adjust treatment as per sensitivity. 3. Hyponatremia, sodium 127, this is moderate. We will monitor, we will treat accordingly. No significant symptoms for hyponatremia. 4. Uncontrolled diabetes. The patient has blood sugar 127, reconcile home medications, sliding scale for optimal control. 5. Chronic kidney disease, but the creatinine is about the same during previous admissions. We will monitor, this is chronic, seems to be stable. 6. History of schizoaffective disorder, this is chronic, stable, reconcile home medications. 7. History of congestive heart failure, this is chronic, seems to be stable. Reconcile home medications. 8. Hyperlipidemia. Low-cholesterol diet is advised. Reconcile home medications. 9. Uncontrolled hypertension. The patient presented with systolic blood pressure in the 160s. Reconcile home medications. Adjust treatment as needed. 10. Deep venous thrombosis prophylaxis. Job ID: [id number]
[2018-11-15 05:44] LABS: #Basophils 0.1 thou/uL (0.0-0.2); #Eosinphils 0.3 thou/uL (0.0-0.7); #Neutrophils 6.4 thou/uL (1.40-6.50); %Basophils 0.7 % (0.0-1.0); %Eosinophils 2.8 % (0.0-10.0); %Lymphocytes 20.2 % (21.0-51.0); %Monocytes 10.6 % (0.0-10.0); %Neutrophils 65.7 % (42.0-75.0); Hemoglobin 12.3 g/dL (14.0-18.0); Mean Corpuscular HGB CONC 35.5 g/dL (32.0-36.0); Mean Corpuscular Hemoglobin 32.6 pg (27.0-31.0); Mean Corpuscular Volume 91.9 fL (78.0-98.0); Mean Platelet Volume 7.5 fL (7.4-10.4); Platelet Count 207 thou/uL (130-400); Red Blood Cell (RBC) Count 3.77 mill/uL (4.70-6.10); White Blood Cell (WBC) Count 9.7 thou/uL (4.8-10.8)
[2018-11-15 06:03] LABS: Anion Gap 12 mmol/L (10-20); BUN (Urea Nitrogen) 15 mg/dL (8.4-25.7); Calc. Creatinine Clearance 107 mL/min (70-130); Calcium 8.3 mg/dL (7.8-10.44); Carbon Dioxide 26 mmol/L (22-29); Chloride 95 mmol/L (98-107); Estimated GFR-MDRD 50; Glucose 140 mg/dL (70-105); Potassium 3.7 mmol/L (3.5-5.1); Sodium 129 mmol/L (136-145)
[2018-11-15] MEDS: Enoxaparin Sodium 40 MG/0.4 ML SYRINGE SC SCH (08:48)
--- NOTE | 2018-11-15 09:48 | ULT ---
US Carotid Doppler STANDARD History: Syncope Comparison: None. Findings: Real-time grayscale, color, and spectral analysis of the extracranial carotid and vertebral arteries was performed. Antegrade flow both vertebral arteries. No elevated peak systolic velocities within the internal barcenas tid arteries. Impression: No hemodynamically significant stenosis.
--- NOTE | 2018-11-15 16:08 | PDOC.PN ---
- Subjective Encounter Start Date: 11/15/18 Encounter Start Time: 12:30 Subjective: Patient with no further "blackout" episodes while here. States they occured -: up to 3 times in the last few days, without warning, and once while at rest -: Denies any HARDIN or dizziness. No blurred vision or speech changes. Denies any chest pain or sob. No abdominal pain. No cough or hemoptysis. No recent fevers. Has not had any complaints. Has chronic discomfort in his legs associated with hx of arthritis. States he is minimally mobile. Able however to manage well on his own at home. He has home health and group home that come three times a week. - Objective Resuscitation Status - Order Detail: 11/15/18 03:05 Resuscitation Status Routine Resuscitation Status: FULL: Full Resuscitation Vital Signs & Weight: Vital Signs (12 hours) Temp Pulse Resp BP BP Pulse Ox 11/15/18 11:32 97.6 F 62 18 127/87 95 11/15/18 07:52 97.2 F L 54 L 18 163/94 H 95 Weight Weight 296 lb 11.875 oz I&O: 11/14/18 11/15/18 11/16/18 06:59 06:59 06:59 Intake Total 225 580 Output Total 500 Balance -275 580 Result Diagrams: 11/15/18 05:11 11/15/18 05:11 Additional Labs: Accuchecks 11/15/18 11/15/18 11:01 05:59 POC Glucose 134 H 132 H Phys Exam - Physical Examination Constitutional: NAD HEENT: PERRLA, moist MMs, sclera anicteric, oral pharynx no lesions Neck: no nodes, supple, full ROM Respiratory: no wheezing, no rales, no rhonchi, clear to auscultation bilateral Cardiovascular: RRR Gastrointestinal: soft, non-tender, no distention, positive bowel sounds obese Musculoskeletal: no edema, pulses present no calf tenderness. Neurological: normal sensation, moves all 4 limbs Psychiatric: normal affect, A&O x 3 Skin: no rash Dx/Plan (1) Syncope Code(s): R55 - SYNCOPE AND COLLAPSE Status: Acute (2) Suprapubic catheter Code(s): Z93.59 - OTHER CYSTOSTOMY STATUS Status: Acute (3) Hyponatremia Code(s): E87.1 - HYPO-OSMOLALITY AND HYPONATREMIA Status: Acute (4) CKD (chronic kidney disease) stage 3, GFR 30-59 ml/min Code(s): N18.3 - CHRONIC KIDNEY DISEASE, STAGE 3 (MODERATE) Status: Chronic (5) Diabetes type 2, controlled Code(s): E11.9 - TYPE 2 DIABETES MELLITUS WITHOUT COMPLICATIONS Status: Chronic (6) Dyslipidemia Code(s): E78.5 - HYPERLIPIDEMIA, UNSPECIFIED Status: Chronic (7) Hypertension Code(s): I10 - ESSENTIAL (PRIMARY) HYPERTENSION Status: Chronic - Plan cont current plan of care Awaiting Echo and Carotid US. -: UA positive, UCx requested. -: Continue to monitor, patient on telemetry. -: Will also request Orthostatic BPs. * .
[2018-11-15] MEDS: Benztropine 1 MG TAB PO SCH (20:53)
[2018-11-15] MEDS ORDERED: cefTRIAXone\\ROCEPHIN 1 GM in Sodium Chloride 0.9% 100 ML IVPB SCH (23:59)
[2018-11-16 05:23] LABS: #Basophils 0.1 thou/uL (0.0-0.2); #Eosinphils 0.4 thou/uL (0.0-0.7); #Lymphocytes 1.8 thou/uL (1.20-3.40); #Neutrophils 5.7 thou/uL (1.40-6.50); %Basophils 0.6 % (0.0-1.0); %Eosinophils 4.3 % (0.0-10.0); %Lymphocytes 19.9 % (21.0-51.0); %Monocytes 10.8 % (0.0-10.0); %Neutrophils 64.4 % (42.0-75.0); Mean Corpuscular Hemoglobin 31.8 pg (27.0-31.0); Mean Corpuscular Volume 93.5 fL (78.0-98.0); Mean Platelet Volume 7.2 fL (7.4-10.4); Platelet Count 218 thou/uL (130-400); RBC Distribution Width 12.3 % (11.5-14.5); Red Blood Cell (RBC) Count 4.08 mill/uL (4.70-6.10); White Blood Cell (WBC) Count 8.8 thou/uL (4.8-10.8)
[2018-11-16 05:50] LABS: Anion Gap 10 mmol/L (10-20); BUN (Urea Nitrogen) 14 mg/dL (8.4-25.7); Calc. Creatinine Clearance 110 mL/min (70-130); Calcium 8.8 mg/dL (7.8-10.44); Carbon Dioxide 25 mmol/L (22-29); Chloride 103 mmol/L (98-107); Estimated GFR-MDRD 52; Glucose 128 mg/dL (70-105); Magnesium 1.9 mg/dL (1.6-2.6); Potassium 4.4 mmol/L (3.5-5.1); Sodium 134 mmol/L (136-145)
[2018-11-16] MEDS ORDERED: glipiZIDE 5 MG TAB PO SCH (08:00)
[2018-11-16] MEDS: Benztropine 1 MG TAB PO SCH (08:38)
[2018-11-16] MEDS: Enoxaparin Sodium 40 MG/0.4 ML SYRINGE SC SCH (08:38)
[2018-11-16] MEDS ORDERED: Finasteride 5 MG TAB PO SCH (09:00)
[2018-11-16] MEDS ORDERED: Lisinopril 2.5 MG TAB PO SCH (09:00)
[2018-11-16] MEDS ORDERED: Aspirin 81 mg Enteric Coated Tablet PO SCH (09:00)
[2018-11-16] MEDS ORDERED: FLUoxetine HCl 20 MG CAP PO SCH (09:00)
[2018-11-16 09:28] VITALS: BP 136/92; TEMP 98.6
--- NOTE | 2018-11-17 12:56 | DIS ---
DATE OF ADMISSION: 11/14/2018 DATE OF DISCHARGE: 11/16/2018 This is ROSA Groves dictating a report for Allan Lara MD. CONSULTING PHYSICIANS: None. DISCHARGE DIAGNOSES: 1. Syncope. 2. Urinary tract infection. 3. Hyponatremia. 4. Chronic kidney disease. 5. Diabetes mellitus, type 2. 6. Dyslipidemia. 7. Hypertension. HOSPITAL COURSE: Mr. Gaines is a 58-year-old man, who reports having syncopal episodes about the last few days prior to admission. He states it would happen suddenly without any associated symptoms. He was seen in the emergency department and underwent initial investigations including an EKG showing sinus rhythm with PACs, otherwise normal. A chest x-ray was done showing no acute cardiopulmonary findings. CT of the brain was unremarkable showing no acute intracranial findings. The patient was admitted for further investigations. He had no further episodes throughout his stay and was back to his baseline. He underwent carotid Dopplers that showed no hemodynamically significant stenosis. Also done was an echo showing an EF of 50% to 55% with mild mitral regurgitation and mild tricuspid regurgitation, otherwise normal. Laboratory studies were initially notable for white count of 12, and he had an elevated renal function which was at his baseline. His sodium did improve throughout his hospital stay. Urinalysis was obtained and he was noted to have UTI, therefore started on antibiotics. He reports having frequent urinary tract infections due to the presence of a suprapubic catheter. The patient states he is feeling well and without any complaints. REVIEW OF SYSTEMS: The patient denies having any nausea or vomiting. He has been tolerating regular diet. Denies having any chest pain or palpitations. No shortness of breath. No abdominal pain or cramping. All other review of systems are negative. PHYSICAL EXAMINATION: GENERAL: The patient appears well developed, well nourished, in no acute distress. VITAL SIGNS: Temperature 98.6, pulse 56, respirations 18, O2 saturation 94% on room air, blood pressure 132/92. HEENT: Normocephalic and atraumatic. Pupils are equal, round, and reactive to light. Sclerae are without icterus. Oropharynx is clear. NECK: Supple. LUNGS: Clear to auscultation bilaterally. CARDIAC: Regular rate and rhythm. ABDOMEN: Soft, obese, nontender, nondistended. Normoactive bowel sounds present. EXTREMITIES: No lower leg swelling or edema. Pulses present. No calf tenderness. NEUROLOGIC: Alert and oriented x3. No neuro deficits. SKIN: Without rash or jaundice. LABORATORY DATA: White blood count 8.8, hemoglobin 13, hematocrit 38.2, platelets 218. Sodium 134, potassium 4.4, BUN 14, creatinine 1.41, GFR 52, glucose 128, calcium 8.8, magnesium 1.9. Troponin I 0.037. IMAGING DATA: As mentioned above in hospital course. Additionally, the patient did undergo an x-ray of the knee due to having knee pain after a syncopal episode. He was noted to have mild to moderate osteoarthritis, otherwise no fracture or abnormality present. CONDITION: Stable at discharge. ACTIVITY: As tolerated. DIET: Heart healthy. CONDITION: Stable. DISCHARGE MEDICATIONS: The patient was given a prescription for Omnicef 300 mg p.o. twice daily for 14 days. The patient otherwise advised to resume his regular home medications. FOLLOWUP: The patient advised to follow up with his primary care physician at the [facility] within 1 week. DISPOSITION: The patient medically cleared for discharge home on 11/16/2018. The patient's case was discussed with Dr. Lara, who agrees with plan of care as described above. Job ID: [id number]
--- NOTE | 2018-11-20 15:07 | EKG ---
Test Reason : SOB Blood Pressure : / mmHG Vent. Rate : 072 BPM Atrial Rate : 072 BPM P-R Int : 126 ms QRS Dur : 096 ms QT Int : 400 ms P-R-T Axes : 038 -01 019 degrees QTc Int : 438 ms Sinus rhythm with Premature atrial complexes Otherwise normal ECG Confirmed by SOM CASTANO ([id number]), newspaper editor managing MARCIAL VILLALOBOS ([id number]) on 11/20/2018 3:07:29 PM Referred By: CYRUS CASTANO Confirmed By:SOM CASTANO
== END 2018-11-16 17:12 | disposition home or self-care (01) ==
LOC: ERS 21:12 → T4-A 23:31 → 2NO 11-15 03:40
PROVIDERS: ADMIT Hospitalist; ATTEND Hospitalist
DX: R55 Syncope and collapse (principal); N30.90 Cystitis, unspecified without hematuria; N40.0 Benign prostatic hyperplasia without lower urinary tract symptoms; E78.5 Hyperlipidemia, unspecified; F25.9 Schizoaffective disorder, unspecified; E87.1 Hypo-osmolality and hyponatremia; I13.2 Hypertensive heart and chronic kidney disease with heart failure and with stage 5 chronic kidney disease, or end stage renal disease; E11.22 Type 2 diabetes mellitus with diabetic chronic kidney disease; N18.3 Chronic kidney disease, stage 3 (moderate); I50.9 Heart failure, unspecified; M17.11 Unilateral primary osteoarthritis, right knee; I08.1 Rheumatic disorders of both mitral and tricuspid valves; Z87.891 Personal history of nicotine dependence; Z91.14 Patient's other noncompliance with medication regimen; Z79.52 Long term (current) use of systemic steroids; Z79.82 Long term (current) use of aspirin; Z79.84 Long term (current) use of oral hypoglycemic drugs; Z79.899 Other long term (current) drug therapy; Z88.1 Allergy status to other antibiotic agents; Z88.8 Allergy status to other drugs, medicaments and biological substances; Z93.59 Other cystostomy status; Z98.890 Other specified postprocedural states
CPT/HCPCS: 36415; 36416; 70450; 71045; 80048; 80053; 81003; 81015; 83690; 83735; 84443; 85025; 87077; 87086; 87186; 93005; 93306; 93880; 94640; 94760; 96361; 96365; 96372; 96375; 96376; G0378; J0696; J1650; J1885; J3490; J7620

== ENCOUNTER 2018-11-20 18:32 | Emergency (ER) | payer MEDICARE, SELFPAY ==
[2018-11-20 18:59] LABS: #Basophils 0.1 thou/uL (0.0-0.2); #Eosinphils 0.4 thou/uL (0.0-0.7); #Lymphocytes 1.7 thou/uL (1.20-3.40); #Monocytes 1.1 thou/uL (0.11-0.59); #Neutrophils 8.2 thou/uL (1.40-6.50); %Basophils 0.6 % (0.0-1.0); %Eosinophils 3.6 % (0.0-10.0); %Lymphocytes 15.2 % (21.0-51.0); %Monocytes 9.3 % (0.0-10.0); %Neutrophils 71.3 % (42.0-75.0); Hemoglobin 13.5 g/dL (14.0-18.0); Mean Corpuscular HGB CONC 34.6 g/dL (32.0-36.0); Mean Corpuscular Volume 92.4 fL (78.0-98.0); Mean Platelet Volume 6.8 fL (7.4-10.4); Platelet Count 230 thou/uL (130-400); RBC Distribution Width 12.5 % (11.5-14.5); Red Blood Cell (RBC) Count 4.21 mill/uL (4.70-6.10); White Blood Cell (WBC) Count 11.4 thou/uL (4.8-10.8)
--- NOTE | 2018-11-20 19:03 | RAD ---
AP CHEST: 11/20/18 HISTORY: Shortness of breath. The lungs are clear. No evidence of vascular congestion or edema. Heart size is within normal range. IMPRESSION: No acute process. POS: [facility]
[2018-11-20 19:16] LABS: Bilirubin Negative (Negative); Blood, Urine Small (Negative); Clarity Clear (Clear); Glucose, Urine (Dipstick) Negative (Negative); Leukocyte Moderate (Negative); Nitrite Positive (Negative); Protein, Urine (Dipstick) Negative (Neg-Trace); Urobilinogen 0.2 mg/dL (0.2-1.0); pH, Urine 6.5 (5.0-9.0)
[2018-11-20 19:19] LABS: ALT (SGPT) 15 U/L (8-55); AST (SGOT) 13 U/L (5-34); Alkaline Phosphatase 68 U/L (40-150); Anion Gap 14 mmol/L (10-20); BUN (Urea Nitrogen) 18 mg/dL (8.4-25.7); Bilirubin, Total 0.2 mg/dL (0.2-1.2); Calc. Creatinine Clearance 0 mL/min (70-130); Calcium 9.4 mg/dL (7.8-10.44); Carbon Dioxide 26 mmol/L (22-29); Chloride 96 mmol/L (98-107); Estimated GFR-MDRD 49; Globulin 2.9 g/dL (2.4-3.5); Glucose 91 mg/dL (70-105); Magnesium 1.7 mg/dL (1.6-2.6); Potassium 4.4 mmol/L (3.5-5.1); Protein, Total 6.9 g/dL (6.0-8.3); Sodium 132 mmol/L (136-145)
[2018-11-20 19:25] LABS: Specific Gravity, Urine 1.006 (1.002-1.036)
[2018-11-20 19:26] LABS: Bacteria/HPF 1+ HPF (None Seen); Hyaline Casts/LPF NONE SEEN LPF (0-3 Hyaline); RBC/HPF 0-3 HPF (0-3); Squamous Epithelial 0-3 HPF (0-3)
[2018-11-20] MEDS ORDERED: cefTRIAXone\\ROCEPHIN 1 GM VIAL ONE (20:04)
[2018-11-20] MEDS ORDERED: Acetaminophen 500 MG TAB ONE (20:23)
== END 2018-11-20 20:44 | disposition home or self-care (01) ==
LOC: ERS 18:32
DX: R06.02 Shortness of breath (principal); N39.0 Urinary tract infection, site not specified; I11.0 Hypertensive heart disease with heart failure; I50.9 Heart failure, unspecified; E78.5 Hyperlipidemia, unspecified; F31.9 Bipolar disorder, unspecified; F25.9 Schizoaffective disorder, unspecified; Z87.891 Personal history of nicotine dependence; Z79.899 Other long term (current) drug therapy; Z79.51 Long term (current) use of inhaled steroids; Z79.82 Long term (current) use of aspirin
CPT/HCPCS: 36415; 71045; 80053; 81003; 81015; 83735; 83880; 84443; 84484; 85025; 93005; 96365; J0696

== ENCOUNTER 2018-11-30 23:01 | Emergency (ER) | payer MEDICARE ==
--- NOTE | 2018-11-30 23:51 | RAD ---
Chest one view Abdomen 2 views HISTORY: Abdominal pain. Bloating and diarrhea.. FINDINGS: Cardiac silhouette and pulmonary vasculature are unremarkable. Mediastinum is midline. No c onfluent airspace consolidation or evidence of free subdiaphragmatic gas. Gas and stool overlie the colon and rectum. No differential air-fluid levels or evidence of free intr aperitoneal gas. Radiopaque catheter overlies the urethra. Phleboliths project over the pelvis. IMPRESSION: Nonspecific bowel gas pattern. No significant abnormalities are demonstrated.
[2018-12-01 00:08] LABS: #Basophils 0.1 thou/uL (0.0-0.2); #Eosinphils 0.4 thou/uL (0.0-0.7); #Lymphocytes 1.6 thou/uL (1.20-3.40); #Monocytes 0.9 thou/uL (0.11-0.59); #Neutrophils 8.1 thou/uL (1.40-6.50); %Basophils 0.5 % (0.0-1.0); %Eosinophils 3.4 % (0.0-10.0); %Lymphocytes 14.7 % (21.0-51.0); %Monocytes 8.1 % (0.0-10.0); %Neutrophils 73.3 % (42.0-75.0); Hemoglobin 13.3 g/dL (14.0-18.0); Mean Corpuscular HGB CONC 34.7 g/dL (32.0-36.0); Mean Corpuscular Hemoglobin 31.7 pg (27.0-31.0); Mean Corpuscular Volume 91.3 fL (78.0-98.0); Platelet Count 205 thou/uL (130-400); RBC Distribution Width 12.2 % (11.5-14.5); White Blood Cell (WBC) Count 11.1 thou/uL (4.8-10.8)
[2018-12-01 00:28] LABS: ALT (SGPT) 15 U/L (8-55); AST (SGOT) 14 U/L (5-34); Acetaminophen Less than 6.0 mcg/mL (10.0-30.0); Alcohol Less than 10 mg/dL (Less than 10); Alkaline Phosphatase 71 U/L (40-150); Anion Gap 11 mmol/L (10-20); BUN (Urea Nitrogen) 15 mg/dL (8.4-25.7); Bilirubin, Total 0.3 mg/dL (0.2-1.2); Calc. Creatinine Clearance 0 mL/min (70-130); Calcium 9.8 mg/dL (7.8-10.44); Carbon Dioxide 27 mmol/L (22-29); Chloride 96 mmol/L (98-107); Estimated GFR-MDRD 52; Globulin 2.8 g/dL (2.4-3.5); Glucose 139 mg/dL (70-105); Potassium 4.1 mmol/L (3.5-5.1); Protein, Total 6.8 g/dL (6.0-8.3); Salicylate Less than 8.0 mg/dL (15.0-30.0); Sodium 130 mmol/L (136-145)
[2018-12-01 01:14] LABS: Amphetamine Not Detected (NotDetected); Barbiturates Screen Not Detected (NotDetected); Benzodiazepine Screen Not Detected (NotDetected); Cocaine Metabolite Screen Not Detected (NotDetected); Medtox Control Line Valid? VALID (VALID); Medtox Reader # READER 1; Methadone Not Detected (NotDetected); Methamphetamine Not Detected (NotDetected); Opiate Screen Not Detected (NotDetected); Oxycodone Screen Not Detected (NotDetected); Phencyclidine (PCP) Not Detected (NotDetected); THC/Cannabinoid Screen Not Detected (NotDetected); Tricyclic Screen Not Detected (NotDetected)
[2018-12-01] MEDS ORDERED: Levothyroxine Sodium 25 MCG TAB PO SCH (07:15)
[2018-12-01] MEDS ORDERED: glipiZIDE 5 MG TAB PO SCH (08:15)
[2018-12-01] MEDS ORDERED: Docusate 100 MG CAP PO SCH (09:00)
[2018-12-01] MEDS ORDERED: Lisinopril 2.5 MG TAB PO SCH (09:00)
[2018-12-01] MEDS ORDERED: Benztropine 1 MG TAB PO SCH (09:00)
[2018-12-01] MEDS ORDERED: risperiDONE 3 MG TAB PO SCH (09:00)
[2018-12-01] MEDS ORDERED: Finasteride 5 MG TAB PO SCH (09:00)
[2018-12-01] MEDS ORDERED: Donepezil HCl 10 MG TAB PO SCH (09:00)
[2018-12-01] MEDS ORDERED: Aspirin Chewable 81 MG TAB PO SCH (09:00)
[2018-12-01] MEDS ORDERED: Aspirin 81 mg Enteric Coated Tablet ONE (11:35)
[2018-12-01] MEDS ORDERED: traZODone HCl 50 MG TAB PO SCH (21:00)
[2018-12-01] MEDS ORDERED: Simvastatin 5 MG TAB PO SCH (21:00)
[2018-12-02] MEDS ORDERED: glipiZIDE 5 MG TAB PO SCH (07:30)
== END 2018-12-01 22:29 ==
LOC: ERS 23:01
DX: K59.00 Constipation, unspecified (principal); F32.9 Major depressive disorder, single episode, unspecified; I11.0 Hypertensive heart disease with heart failure; I50.9 Heart failure, unspecified; E78.5 Hyperlipidemia, unspecified; Z87.891 Personal history of nicotine dependence; Z79.51 Long term (current) use of inhaled steroids; Z79.82 Long term (current) use of aspirin; Z79.899 Other long term (current) drug therapy
CPT/HCPCS: 36415; 36416; 74022; 80053; 80306; 80307; 85025

== ENCOUNTER 2019-02-05 02:33 | Observation (INO) | payer OTHER ==
[2019-02-05 05:43] VITALS: BMI 40.1
[2019-02-05] MEDS ORDERED: Acetaminophen 325 MG TAB PO PRN ×2 (05:45→07:23)
[2019-02-05] MEDS ORDERED: HYDROcodone/Acetaminophen 5/325 mg Tablet PO PRN ×2 (05:45)
[2019-02-05] MEDS ORDERED: Ondansetron PF 4 MG/2 ML Vial IVP PRN ×2 (05:45→07:23)
[2019-02-05] MEDS ORDERED: Sodium Chloride 0.9% 1,000 ML IV SCH (05:45)
[2019-02-05] MEDS ORDERED: MEROPENEM 1 GM/50 ML 1 GM in Premix Bag 1 BAG IVPB SCH (05:45)
[2019-02-05] MEDS ORDERED: Vancomycin HCl 1 GM in Premix Bag 1 BAG IVPB SCH (05:45)
[2019-02-05] MEDS ORDERED: Ondansetron ODT 4 MG TAB SL PRN (05:45)
[2019-02-05] MEDS ORDERED: Sodium Chloride 0.65% Nasal 44 ML BOT EA NARE PRN (07:23)
[2019-02-05] MEDS ORDERED: Cepastat Lozenges 1 LOZ PO PRN (07:23)
[2019-02-05] MEDS ORDERED: Loratadine 10 MG TAB PO PRN (07:23)
[2019-02-05] MEDS ORDERED: Ondansetron ODT 4 MG TAB PO PRN (07:23)
[2019-02-05] MEDS ORDERED: Guaifenesin DM 100-10/5 ML UDCUP PO PRN (07:23)
[2019-02-05] MEDS ORDERED: Dextrose 50% Abboject 50 ML SYRINGE SLOW IVP PRN (07:23)
[2019-02-05] MEDS ORDERED: Calcium Carbonate 500 MG ChewTAB PO PRN (07:23)
[2019-02-05] MEDS ORDERED: Artificial Tears 18 DROP/0.9 ML EA EYE PRN (07:23)
[2019-02-05] MEDS ORDERED: Dextrose 5% in Water 1,000 ML IV PRN (07:23)
[2019-02-05] MEDS ORDERED: Loperamide HCl 2 MG CAP PO PRN (07:23)
[2019-02-05] MEDS ORDERED: HumaLOG 300 UNITS/3 ML VIAL SC PRN ×2 (07:23)
[2019-02-05] MEDS ORDERED: hydrALAZINE 20 MG/ML VIAL SLOW IVP PRN (07:23)
--- NOTE | 2019-02-05 07:48 | ULT ---
PRELIMINARY REPORT/[facility]/EMERGENCY AFTER HOURS PROCEDURE: EXAM: US Scrotum EXAM DATE/TIME: 02/05/2019 3:20 AM CLINICAL HISTORY: 59 years old, male; Other: RT testicle pain TECHNIQUE: Imaging protocol: Real-time ultrasound of the scrotum and contents with color Doppler and image docum entation. COMPARISON: No relevant prior studies available. FINDINGS: Right Testicle: Normal. No mass. No torsion. Normal vascular flow. Left Testicle: Normal. No mass. No torsion. Normal vascular flow. Epididymides: Enlargement, heterogeneity, and hypervascularity of the right epididymis, consistent wi th epididymitis. Left epididymis is normal. Scrotum: No significant hydrocele. IMPRESSION: Right epididymitis Thank you for allowing us to participate in the care of your patient. Dictated and Authenticated by: West Mac MD 02/05/2019 4:36 AM Central Time ([place] & [place]) FINAL REPORT EMERGENCY AFTER HOURS SCROTAL ULTRASOUND INCLUDING COLOR AND SPECTRAL DOPPLER IMAGING: DATE: 02/05/19 TIME: 0328 hours COMPARISON: 01/25/19. FINDINGS: Again noted is abnormal thickening and heterogeneity of the right epididymis with some hypervasculari ty. Small somewhat complex right-sided hydrocele. No significant increased vascularity noted in the r ight testis compared to the left on today's study. No evidence for testicular torsion. No intratestic ular mass. IMPRESSION: Evidence for persistent right-sided epididymitis. No intratesticular mass. Previously noted increased vascularity in the right testis seen on the prior study is not definitely redemonstrated on today's study. Report in agreement with preliminary report given on-call by Shirley. POS: [facility]
[2019-02-05] MEDS ORDERED: Meropenem 1 GM in Sodium Chloride 0.9% 100 ML IVPB SCH (08:00)
[2019-02-05] MEDS: Sodium Chloride 0.9% 1,000 ML IV SCH (08:30)
--- NOTE | 2019-02-05 09:15 | HP ---
PRIMARY CARE PHYSICIAN: Tomeka Blas MD REASON FOR ADMISSION: Transfer from [facility] for right epididymitis. HISTORY OF PRESENT ILLNESS: A 59-year-old male, who has underlying psychiatric problem, currently he is not providing any good history to me, but he was admitted in our hospital on January 24, 2019. At that time, the patient was treated for urinary tract infection. The patient was discharged home on January 30, 2019, and the patient has returned back to hospital last night because of urinary complaints. As per report, the patient was having nausea, vomiting, and he was dehydrated. In the emergency room, he had ultrasound done, which showed epididymitis and Urology consult was required, that is why this patient is being admitted. He has chronic suprapubic catheter in place. PAST MEDICAL HISTORY: Benign enlargement of prostate, chronic urinary retention with obstructive uropathy secondary to benign enlargement of prostate requiring chronic suprapubic catheter, chronic cystitis, degenerative joint disease, diabetes type 2, hypertension, hypothyroidism, COPD, chronic diastolic heart failure, chronic kidney disease stage 3. PAST PSYCHIATRIC HISTORY: Anxiety, depression, schizoaffective disorder, bipolar disorder. PAST SURGICAL HISTORY: Suprapubic catheter placement, left knee surgery, bladder surgery x2. SOCIAL HISTORY: No history of tobacco, alcohol, or illicit drug abuse. The patient is a former smoker. He quit smoking few years ago. He drinks alcohol socially FAMILY HISTORY: Paternal history of malignancy to colon cancer. No family history of coronary artery disease or stroke. ALLERGIES: CIPROFLOXACIN, NORTRIPTYLINE, AND THIOTHIXENE. REVIEW OF SYSTEMS: CONSTITUTIONAL: Negative for weight loss or gain, ability to conduct usual activities. SKIN: Negative for rash, itching. EYES: Negative for double vision, pain. ENT/MOUTH: Negative for nose bleeding, neck stiffness, pain, tenderness. CARDIOVASCULAR: Negative for palpitations, dyspnea on exertion, orthopnea. RESPIRATORY: Negative for shortness of breath, wheezing, cough, hemoptysis, fever or night sweats. GASTROINTESTINAL: Negative for poor appetite, abdominal pain, heartburn, nausea , vomiting, constipation, or diarrhea. GENITOURINARY: Negative for urgency, frequency, dysuria, nocturia. MUSCULOSKELETAL: Negative for pain, swelling. NEUROLOGIC/PSYCHIATRIC: Negative for anxiety, depression. ALLERGY/IMMUNOLOGIC: Negative for skin rash, bleeding tendency. Please see my HPI for pertinent positive and negative. All other review of systems reviewed and negative, except as mentioned in the HPI. CURRENT HOME MEDICATIONS: 1. Colace 250 mg twice daily. 2. Benztropine 1 mg p.o. b.i.d. 3. Divalproex sodium 1000 mg at bedtime. 4. Lisinopril 2.5 mg daily. 5. Pravastatin 20 mg p.o. at bedtime. 6. Proscar 5 mg daily. 7. Glipizide 5 mg twice daily. 8. Aricept 10 mg p.o. at bedtime. 9. Aspirin 81 mg daily. 10. Synthroid 25 mcg p.o. daily. 11. Trazodone 100 mg p.o. daily. 12. Risperidone 3 mg p.o. b.i.d. EMERGENCY ROOM COURSE: The patient received meropenem, vancomycin, and Cipro at other emergency room. PHYSICAL EXAMINATION: VITAL SIGNS: Currently, blood pressure 139/67, pulse 66, respiratory rate 22, temperature 97.8, saturation 95% on room air, weight 125 kg. GENERAL: The patient is currently awake, follows simple commands, sleepy. HEENT: Head; normocephalic and atraumatic. Eyes; pupils round, reactive to light. Extraocular muscles intact. ENT; oropharynx within normal limit. Moist mucous membrane. NECK: Supple. No JVD. No thyromegaly. No carotid bruit. LUNGS: Clear to auscultation without any rhonchi or rales. CARDIAC: S1 and S2 regular. No murmur. No gallop. No rub. ABDOMEN: Soft. Bowel sounds present. Nontender. Nondistended. No organomegaly. No mass. No suprapubic tenderness. The patient does have chronic suprapubic catheter. EXTREMITIES: Lower extremity, no edema. Good distal pulsation. NEUROLOGIC: Nonfocal examination. REVIEW OF SYSTEMS: All review of systems reviewed with the patient, but not reliable because of the patient's underlying psychiatric problem and is not responding properly. SIGNIFICANT LABORATORY DATA: Testicular ultrasound showing right epididymitis. CBC; WBC 10.7, hemoglobin 11.8, platelet 256. BMP; sodium 132, potassium 4.5, chloride 97, carbon dioxide 25, BUN 9, creatinine 1.39, glucose 125, calcium 9.1 , lactic acid 1.3. LFT; AST 13, ALT 26, alkaline phosphatase 92, albumin 3.6. CRP 0.92. Urinalysis consistent with urinary tract infection. ASSESSMENT AND PLAN: 1. Right epididymitis. 2. Urinary tract infection secondary to chronic suprapubic catheter. 3. Mild hyponatremia and hypochloremia. 4. Mild acute kidney injury. 5. Chronic obstructive pulmonary disease without exacerbation. 6. Underlying history of bipolar disorder, schizoaffective disorder, and anxiety and depression. 7. Dementia, most likely pseudodementia from depression and psychiatric problem. 8. Chronic obstructive uropathy with chronic urinary retention, requiring chronic suprapubic catheter secondary to benign enlargement of prostate. 9. Chronic diastolic heart failure stage C, stable and euvolemic. 10. Hypothyroidism. 11. Dyslipidemia. 12. Diabetes type 2. 13. Chronic constipation. 14. Obesity with body mass index 40. PLAN: 1. The patient has been admitted as observation status to medical floor. Urology will be consulted. We will consult PT/OT while in hospital. Continue NS 50 mL/ h. Continue meropenem and vancomycin as per pharmacy adjusted dose. Resume selected home medication while in hospital. Hyperglycemia protocol order. Urology consultation. We will repeat labs tomorrow. 2. Deep venous thrombosis prophylaxis. Lovenox 40 mg subcu daily. 3. GI prophylaxis. Pepcid 20 mg p.o. b.i.d. 4. Code status. The patient is full code. 5. Disposition plan. Based on clinical course, we are expecting the patient's stay in hospital more than 24 to 48 hours. Plan of care discussed with the patient in detail. Job ID: [id number] [facility]
[2019-02-05] MEDS: MEROPENEM 1 GM/50 ML 1 GM in Premix Bag 1 BAG IVPB SCH ×3 (09:23→23:33)
[2019-02-05] MEDS: glipiZIDE 5 MG TAB PO SCH ×2 (09:26→21:12)
[2019-02-05] MEDS: Saccharomyces boulardii 250 MG CAP PO SCH (09:26)
[2019-02-05] MEDS: risperiDONE 3 MG TAB PO SCH ×2 (09:27→21:13)
[2019-02-05] MEDS: Finasteride 5 MG TAB PO SCH (09:27)
[2019-02-05] MEDS: FLUoxetine HCl 20 MG CAP PO SCH (09:28)
[2019-02-05] MEDS: Benztropine 1 MG TAB PO SCH ×2 (09:28→21:13)
[2019-02-05] MEDS: Enoxaparin Sodium 40 MG/0.4 ML SYRINGE SC SCH (09:28)
[2019-02-05] MEDS: Lisinopril 2.5 MG TAB PO SCH (09:28)
[2019-02-05] MEDS: Aspirin 81 mg Enteric Coated Tablet PO SCH (09:28)
[2019-02-05] MEDS: Famotidine 20 MG TAB PO SCH ×2 (09:28→21:12)
[2019-02-05] MEDS: Levothyroxine Sodium 25 MCG TAB PO SCH (09:28)
[2019-02-05] MEDS: Midodrine HCl 5 MG TAB PO SCH ×3 (10:36→21:15)
[2019-02-05] MEDS: Vancomycin HCl 1 GM in Premix Bag 1 BAG IVPB SCH (11:29)
[2019-02-05] MEDS: Simvastatin 5 MG TAB PO SCH (21:12)
[2019-02-05] MEDS: traZODone HCl 50 MG TAB PO SCH (21:13)
[2019-02-05] MEDS: Donepezil HCl 10 MG TAB PO SCH (21:13)
[2019-02-05] MEDS ORDERED: Mometasone/Formoterol 120 PUFF INHALER INH SCH (21:45)
[2019-02-05] MEDS: Zolpidem Tartrate 5 MG TAB PO PRN (22:45)
[2019-02-06] MEDS: Vancomycin HCl 1 GM in Premix Bag 1 BAG IVPB SCH ×2 (00:25→12:35)
[2019-02-06] MEDS: Sodium Chloride 0.9% 1,000 ML IV SCH ×2 (01:23→23:39)
--- NOTE | 2019-02-06 01:24 | CON ---
DATE OF CONSULTATION: 02/05/2019 REASON FOR CONSULTATION: Suprapubic tube change, urinary tract infection, and right epididymitis. HISTORY: Mr. Gaines is a 59-year-old gentleman with a neurogenic bladder. He has been managed with a suprapubic tube since placement by Dr. Ruggiero in July of 2017. Apparently, his prior urologic history included some bladder surgery, although the exact type of bladder surgery is unclear. When he had a cystoscopy done by Dr. Ruggiero in 2018, it did appear that his ureteral orifices were somewhat mispositioned consistent with possible prior ureteral reimplant surgery. In any regard, he presented in early 2017 with urinary retention, some renal failure. He had poor bladder emptying and as mentioned above, he has been managed with a suprapubic tube. He was most recently admitted to the hospital approximately three weeks ago. At that time, he was admitted with presumed epididymitis. He had a scrotal ultrasound performed on 01/25/2019 with findings consistent with right- sided epididymitis. He was managed with antibiotic therapy, discharged home, and he returned to the hospital today with complaints of fever, nausea, and vomiting. Repeat ultrasound has been performed and demonstrates findings consistent with right epididymitis. There is no torsion. There is no tumor. He has been afebrile since his admission. PAST MEDICAL HISTORY: Urinary retention secondary to neurogenic bladder managed with suprapubic tube, COPD, diastolic heart failure, chronic renal insufficiency , hypertension, and type 2 diabetes mellitus. Psychiatric history includes depression, schizoaffective disorder, and bipolar disorder. PAST SURGICAL HISTORY: Includes knee surgery; bladder surgery of some sort, although the exact type is unclear; and suprapubic tube placement. SOCIAL HISTORY: He is an ex-smoker, having quit over 10 years ago. He drinks alcohol on a social basis only. FAMILY HISTORY: Significant for colon cancer in his father. ALLERGIES: CIPRO, NORTRIPTYLINE, AND THIOTHIXENE. REVIEW OF SYSTEMS: RESPIRATORY: Denies any shortness of breath. CARDIOVASCULAR: Denies chest pain or palpitations. GASTROINTESTINAL: Denies chronic constipation or diarrhea. GENITOURINARY: Please see history of present illness. PSYCHIATRIC: He has psychiatric history as mentioned in the past medical history. MEDICATIONS: Chronic medications include: Colace, benztropine, divalproex, lisinopril, pravastatin, Proscar, glipizide, Aricept, aspirin, Synthroid, trazodone, and risperidone. PHYSICAL EXAMINATION: GENERAL: He is awake, alert. He is in no distress. HEENT: Normocephalic and atraumatic. NECK: Supple. No masses. CHEST: Clear to auscultation. CARDIOVASCULAR: Regular rate and rhythm. ABDOMEN: Soft, nontender. No palpable masses. Liver and spleen not palpable. No peritoneal signs. . : Demonstrates a firm indurated right epididymis. Left testicle and epididymis normal. PROCEDURE NOTE: Suprapubic tube site was steriley prepped with Betadine. The 16-English suprapubic tube was removed and 18-English was placed as per his request. Catheter drained clear urine. No complications LABORATORY: Culture 01/25/2019 of the urine was positive for Achromobacter, Pseudomonas, and Citrobacter. IMPRESSION: Mr. Gaines has neurogenic bladder. He is managed typically by Dr. Ruggiero and also at the [place]. Dr. Ruggiero placed a suprapubic tube in July of 2017 and this has been changed on a monthly basis. I changed it today as he was admitted for urinary tract infection and has been on antibiotic therapy since admission in order to remove a presumed bacteria biofilm and adherence to the current suprapubic tube. The tube was changed easily and without difficulty. Exam and ultrasound are consistent with epididymitis and it will take significant time for the induration to resolve. RECOMMENDATIONS: Antibiotic therapy based on culture results. Please re- consult jeromy Job [facility] [id number] [facility]
[2019-02-06 04:12] LABS: #Basophils 0.1 thou/uL (0.0-0.2); #Eosinphils 0.6 thou/uL (0.0-0.7); #Lymphocytes 1.6 thou/uL (1.20-3.40); #Monocytes 0.7 thou/uL (0.11-0.59); #Neutrophils 6.3 thou/uL (1.40-6.50); %Basophils 0.8 % (0.0-1.0); %Eosinophils 6.7 % (0.0-10.0); %Lymphocytes 16.9 % (21.0-51.0); %Monocytes 7.5 % (0.0-10.0); %Neutrophils 68.1 % (42.0-75.0); Hemoglobin 12.3 g/dL (14.0-18.0); Mean Corpuscular HGB CONC 34.6 g/dL (32.0-36.0); Mean Corpuscular Hemoglobin 31.8 pg (27.0-31.0); Platelet Count 252 thou/uL (130-400); RBC Distribution Width 12.5 % (11.5-14.5); Red Blood Cell (RBC) Count 3.87 mill/uL (4.70-6.10); White Blood Cell (WBC) Count 9.3 thou/uL (4.8-10.8)
[2019-02-06 04:33] LABS: Anion Gap 11 mmol/L (10-20); BUN (Urea Nitrogen) 11 mg/dL (8.4-25.7); Calc. Creatinine Clearance 120 mL/min (70-130); Calcium 9.1 mg/dL (7.8-10.44); Carbon Dioxide 26 mmol/L (22-29); Chloride 102 mmol/L (98-107); Estimated GFR-MDRD 64; Glucose 99 mg/dL (70-105); Sodium 135 mmol/L (136-145)
[2019-02-06] MEDS: Mometasone/Formoterol 120 PUFF INHALER INH SCH ×2 (07:07→19:58)
[2019-02-06] MEDS: MEROPENEM 1 GM/50 ML 1 GM in Premix Bag 1 BAG IVPB SCH ×3 (09:48→23:36)
[2019-02-06] MEDS: Lisinopril 2.5 MG TAB PO SCH (09:52)
[2019-02-06] MEDS: Aspirin 81 mg Enteric Coated Tablet PO SCH (09:52)
--- NOTE | 2019-02-06 09:52 | PDOC.HOSPP ---
- Subjective Encounter Date: 02/06/19 Subjective: Patient seen and examined. No new complaints. No overnight events - Objective Vital Signs & Weight: Vital Signs (12 hours) Temp Pulse Resp BP Pulse Ox 02/06/19 07:09 70 14 02/06/19 07:00 97.7 F 56 L 18 124/58 L 92 L 02/06/19 05:31 93 L 02/06/19 03:56 97.6 F 63 18 136/63 93 L 02/06/19 00:11 94 L 02/05/19 22:38 97.6 F 60 18 138/70 94 L Weight Weight 272 lb 3.2 oz I&O: 02/05/19 02/06/19 02/07/19 06:59 06:59 06:59 Intake Total 8280 Output Total 67455 Balance -5420 Result Diagrams: 02/06/19 04:00 02/06/19 04:00 Additional Labs: Accuchecks 02/05/19 02/05/19 02/05/19 19:56 16:48 10:50 POC Glucose 153 H 98 117 H Hospitalist ROS - Review of Systems ROS unobtainable: due to mental status Other: not reliable with pt due to his psychiatry problem - Medication Medications: Active Medications Generic Name Dose Route Start Last Admin Trade Name Adenq PRN Reason Stop Dose Admin Albuterol/Ipratropium 3 ml 02/06/19 06:30 02/06/19 07:09 Duoneb NEB 3 ml TID-RT ALEIDA Administration Aspirin 81 mg 02/05/19 09:00 02/05/19 09:28 Ecotrin PO 81 mg DAILY ALEIDA Administration Benztropine Mesylate 1 mg 02/05/19 09:00 02/05/19 21:13 Cogentin PO 1 mg BID ALEIDA Administration Divalproex Sodium 1,000 mg 02/05/19 09:00 02/05/19 10:36 Depakote Er PO 1,000 mg DAILY ALEIDA Administration Donepezil HCl 10 mg 02/05/19 21:00 02/05/19 21:13 Aricept PO 10 mg HS ALEIDA Administration Enoxaparin Sodium 40 mg 02/05/19 09:00 02/05/19 09:28 Lovenox SC 40 mg 0900 ALEIDA Administration Famotidine 20 mg 02/05/19 09:00 02/05/19 21:12 Pepcid PO 20 mg BID ALEIDA Administration Finasteride 5 mg 02/05/19 09:00 02/05/19 09:27 Proscar PO 5 mg DAILY ALEIDA Administration Fluoxetine HCl 20 mg 02/05/19 09:00 02/05/19 09:28 Prozac PO 20 mg DAILY ALEIDA Administration Glipizide 5 mg 02/05/19 09:00 02/05/19 21:12 Glucotrol PO 5 mg BID ALEIDA Administration Sodium Chloride 1,000 mls @ 50 mls/hr 02/05/19 07:30 02/06/19 01:23 Normal Saline 0.9% IV 1,000 mls .Q20H ALEIDA Administration Meropenem 1 gm/ Device 50 mls @ 100 mls/hr 02/05/19 08:00 02/05/19 23:33 IVPB 50 mls 0800,1600,2359 ALEIDA Administration Vancomycin HCl 1 gm/ Device 200 mls @ 200 mls/hr 02/05/19 12:00 02/06/19 00: 25 IVPB 200 mls 0000,1200 ALEIDA Administration Levothyroxine Sodium 25 mcg 02/05/19 09:00 02/05/19 09:28 Synthroid PO 25 mcg DAILY ALEIDA Administration Lisinopril 2.5 mg 02/05/19 09:00 02/05/19 09:28 Zestril PO 2.5 mg DAILY ALEIDA Administration Midodrine 5 mg 02/05/19 09:00 02/05/19 21:15 Proamatine PO Not Given TID ALEIDA Mometasone Furoate/Formoterol Fumar 2 puff 02/06/19 06:30 02/06/19 07:07 Dulera 200 Mcg/5 Mcg Inhaler INH 2 puff BID-RT ALEIDA Administration Risperidone 3 mg 02/05/19 09:00 02/05/19 21:13 Risperidone PO 3 mg BID ALEIDA Administration Saccharomyces Boulardii 250 mg 02/05/19 09:00 02/05/19 09:26 Florastor PO 250 mg DAILY ALEIDA Administration Simvastatin 10 mg 02/05/19 21:00 02/05/19 21:12 Zocor PO 10 mg HS ALEIDA Administration Trazodone HCl 100 mg 02/05/19 21:00 02/05/19 21:13 Desyrel PO 100 mg HS ALEIDA Administration Zolpidem Tartrate 5 mg 02/05/19 07:23 02/05/19 22:45 Ambien PO 5 mg HSPRN PRN Administration Insomnia - Exam General Appearance: NAD Eye: PERRL, anicteric sclera ENT: normocephalic atraumatic, no oropharyngeal lesions Neck: supple, symmetric, no JVD Heart: RRR, no murmur, no gallops, no rubs Respiratory: CTAB, no wheezes, no rales, no ronchi Gastrointestinal: soft, non-tender, non-distended, normal bowel sounds, no palpable masses, no hepatomegaly Extremities: no cyanosis, no clubbing, no edema Skin: normal turgor, no lesions, no rashes Neurological: CN's grossly intact, normal sensation to touch, no focal deficits Musculoskeletal: normal tone, normal strength Psychiatric: flat affect Hosp A/P (1) Epididymitis with no abscess Code(s): N45.1 - EPIDIDYMITIS Status: Acute (2) UTI (urinary tract infection) Status: Acute Qualifiers: Urinary tract infection type: catheter-associated UTI Indwelling urinary catheter type: cystostomy catheter (3) Anxiety and depression Code(s): F41.8 - OTHER SPECIFIED ANXIETY DISORDERS Status: Chronic (4) BPH (benign prostatic hyperplasia) Code(s): N40.0 - BENIGN PROSTATIC HYPERPLASIA WITHOUT LOWER URINRY TRACT SYMP Status: Chronic (5) CKD (chronic kidney disease) stage 3, GFR 30-59 ml/min Code(s): N18.3 - CHRONIC KIDNEY DISEASE, STAGE 3 (MODERATE) Status: Chronic (6) DJD (degenerative joint disease) Code(s): M19.90 - UNSPECIFIED OSTEOARTHRITIS, UNSPECIFIED SITE Status: Chronic (7) Diabetes type 2, controlled Code(s): E11.9 - TYPE 2 DIABETES MELLITUS WITHOUT COMPLICATIONS Status: Chronic (8) Dyslipidemia Code(s): E78.5 - HYPERLIPIDEMIA, UNSPECIFIED Status: Chronic (9) Hypertension Code(s): I10 - ESSENTIAL (PRIMARY) HYPERTENSION Status: Chronic (10) Hypothyroidism Code(s): E03.9 - HYPOTHYROIDISM, UNSPECIFIED Status: Chronic (11) Morbid obesity with BMI of 40.0-44.9, adult Code(s): E66.01 - MORBID (SEVERE) OBESITY DUE TO EXCESS CALORIES; Z68.41 - BODY MASS INDEX (BMI) 40.0-44.9, ADULT Status: Chronic (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 Code(s): F68.11 - FACTIT DISORD IMPOSED ON SELF, WITH PREDOM PSYCH SIGNS/SYMP Status: Chronic (13) Schizoaffective disorder Code(s): F25.9 - SCHIZOAFFECTIVE DISORDER, UNSPECIFIED Status: Chronic (14) Schizophrenia Code(s): F20.9 - SCHIZOPHRENIA, UNSPECIFIED Status: Chronic (15) Suprapubic catheter Code(s): Z93.59 - OTHER CYSTOSTOMY STATUS Status: Chronic - Plan old records reviewed/req, continue antibiotics continue meropenam and vancomycin for now follow culture today change to appropriate oral antibiotics before discharge based on culture result medication reviewed as above symptomatic treatment urology recommendation appreciated
[2019-02-06] MEDS: Saccharomyces boulardii 250 MG CAP PO SCH (09:53)
[2019-02-06] MEDS: Famotidine 20 MG TAB PO SCH ×2 (09:53→20:45)
[2019-02-06] MEDS: Levothyroxine Sodium 25 MCG TAB PO SCH (09:53)
[2019-02-06] MEDS: glipiZIDE 5 MG TAB PO SCH ×2 (09:53→20:43)
[2019-02-06] MEDS: Benztropine 1 MG TAB PO SCH ×2 (09:53→20:43)
[2019-02-06] MEDS: Midodrine HCl 5 MG TAB PO SCH ×3 (09:53→20:46)
[2019-02-06] MEDS: FLUoxetine HCl 20 MG CAP PO SCH (09:53)
[2019-02-06] MEDS: Finasteride 5 MG TAB PO SCH (09:54)
[2019-02-06] MEDS: Enoxaparin Sodium 40 MG/0.4 ML SYRINGE SC SCH (09:54)
[2019-02-06] MEDS: risperiDONE 3 MG TAB PO SCH ×2 (09:54→20:43)
[2019-02-06] MEDS: Diabetic Tussin 200 MG/10 ML UDCUP PO PRN ×2 (09:58→15:50)
[2019-02-06 11:27] LABS: Vancomycin, Trough 15.8 ug/mL
[2019-02-06] MEDS: HYDROcodone/Acetaminophen 5/325 mg Tablet PO PRN ×2 (14:51→20:44)
[2019-02-06] MEDS: Simvastatin 5 MG TAB PO SCH (20:43)
[2019-02-06] MEDS: Donepezil HCl 10 MG TAB PO SCH (20:44)
[2019-02-06] MEDS: Zolpidem Tartrate 5 MG TAB PO PRN (20:45)
[2019-02-06] MEDS: traZODone HCl 50 MG TAB PO SCH (20:45)
[2019-02-07] MEDS: Vancomycin HCl 1 GM in Premix Bag 1 BAG IVPB SCH (00:08)
[2019-02-07] MEDS: Mometasone/Formoterol 120 PUFF INHALER INH SCH ×2 (06:54→18:59)
[2019-02-07] MEDS: MEROPENEM 1 GM/50 ML 1 GM in Premix Bag 1 BAG IVPB SCH ×3 (09:15→23:55)
[2019-02-07] MEDS: Benztropine 1 MG TAB PO SCH ×2 (09:16→21:09)
[2019-02-07] MEDS: Finasteride 5 MG TAB PO SCH (09:16)
[2019-02-07] MEDS: Famotidine 20 MG TAB PO SCH ×2 (09:16→21:10)
[2019-02-07] MEDS: Aspirin 81 mg Enteric Coated Tablet PO SCH (09:16)
[2019-02-07] MEDS: Enoxaparin Sodium 40 MG/0.4 ML SYRINGE SC SCH (09:16)
[2019-02-07] MEDS: glipiZIDE 5 MG TAB PO SCH ×2 (09:17→21:10)
[2019-02-07] MEDS: Lisinopril 2.5 MG TAB PO SCH (09:17)
[2019-02-07] MEDS: FLUoxetine HCl 20 MG CAP PO SCH (09:17)
[2019-02-07] MEDS: Saccharomyces boulardii 250 MG CAP PO SCH (09:17)
[2019-02-07] MEDS: Midodrine HCl 5 MG TAB PO SCH ×3 (09:17→21:08)
[2019-02-07] MEDS: Levothyroxine Sodium 25 MCG TAB PO SCH (09:17)
[2019-02-07] MEDS: risperiDONE 3 MG TAB PO SCH ×2 (09:17→21:09)
[2019-02-07] MEDS: HYDROcodone/Acetaminophen 5/325 mg Tablet PO PRN ×2 (09:18→21:11)
--- NOTE | 2019-02-07 10:11 | PDOC.HOSPP ---
- Subjective Encounter Date: 02/07/19 Encounter Time: 10:07 Subjective: 59 y/o male, [place] resident with neurogenic bladder s/p suprapubic catheter, who was recently discharged from this hospital following treatment for UTI now readmited due to scrotal swelling and pain associated with fever, chills, nausea and vomiting. found to have epididymitis on US as well as UTI. Started on antibiotics with improvement. No new problem. Fever, nausea and vomiting have subsided. - Objective Vital Signs & Weight: Vital Signs (12 hours) Temp Pulse Resp BP BP Pulse Ox 02/07/19 08:00 97.3 F L 58 L 16 123/60 92 L 02/07/19 06:44 56 L 18 100 02/07/19 05:37 53 L 18 111/59 L 96 Weight Weight 272 lb 3.2 oz I&O: 02/06/19 02/07/19 02/08/19 06:59 06:59 06:59 Intake Total 8280 6010 Output Total 56883 8500 Balance -9955 -8406 Result Diagrams: 02/06/19 04:00 02/06/19 04:00 Additional Labs: Accuchecks 02/07/19 02/06/19 02/06/19 05:35 20:11 16:49 POC Glucose 96 128 H 103 02/06/19 10:27 POC Glucose 130 H Hospitalist ROS - Medication Medications: Active Medications Generic Name Dose Route Start Last Admin Trade Name Freq PRN Reason Stop Dose Admin Hydrocodone Bitart/Acetaminophen 1 tab 02/05/19 07:23 02/07/19 09:18 [place] 5/325 PO 1 tab Q4H PRN Administration Moderate Pain (4-6) Albuterol/Ipratropium 3 ml 02/06/19 06:30 02/07/19 06:44 Duoneb NEB 3 ml TID-RT ALEIDA Administration Aspirin 81 mg 02/05/19 09:00 02/07/19 09:16 Ecotrin PO 81 mg DAILY ALEIDA Administration Benztropine Mesylate 1 mg 02/05/19 09:00 02/07/19 09:16 Cogentin PO 1 mg BID ALEIDA Administration Divalproex Sodium 1,000 mg 02/05/19 09:00 02/07/19 09:16 Depakote Er PO 1,000 mg DAILY ALEIDA Administration Donepezil HCl 10 mg 02/05/19 21:00 02/06/19 20:44 Aricept PO 10 mg HS ALEIDA Administration Enoxaparin Sodium 40 mg 02/05/19 09:00 02/07/19 09:16 Lovenox SC 40 mg 0900 ALEIDA Administration Famotidine 20 mg 02/05/19 09:00 02/07/19 09:16 Pepcid PO 20 mg BID ALEIDA Administration Finasteride 5 mg 02/05/19 09:00 02/07/19 09:16 Proscar PO 5 mg DAILY ALEIDA Administration Fluoxetine HCl 20 mg 02/05/19 09:00 02/07/19 09:17 Prozac PO 20 mg DAILY ALEIDA Administration Glipizide 5 mg 02/05/19 09:00 02/07/19 09:17 Glucotrol PO 5 mg BID ALEIDA Administration Guaifenesin 200 mg 02/05/19 07:23 02/06/19 15:50 Robitussin Sf PO 200 mg Q4H PRN Administration Cough Sodium Chloride 1,000 mls @ 50 mls/hr 02/05/19 07:30 02/06/19 23:39 Normal Saline 0.9% IV 1,000 mls .Q20H ALEIDA Administration Meropenem 1 gm/ Device 50 mls @ 100 mls/hr 02/05/19 08:00 02/07/19 09:15 IVPB 50 mls 0800,1600,2359 ALEIDA Administration Levothyroxine Sodium 25 mcg 02/05/19 09:00 02/07/19 09:17 Synthroid PO 25 mcg DAILY ALEIDA Administration Lisinopril 2.5 mg 02/05/19 09:00 02/07/19 09:17 Zestril PO 2.5 mg DAILY ALEIDA Administration Midodrine 5 mg 02/05/19 09:00 02/07/19 09:17 Proamatine PO 5 mg TID ALEIDA Administration Mometasone Furoate/Formoterol Fumar 2 puff 02/06/19 06:30 02/07/19 06:54 Dulera 200 Mcg/5 Mcg Inhaler INH 2 puff BID-RT ALEIDA Administration Risperidone 3 mg 02/05/19 09:00 02/07/19 09:17 Risperidone PO 3 mg BID ALEIDA Administration Saccharomyces Boulardii 250 mg 02/05/19 09:00 02/07/19 09:17 Florastor PO 250 mg DAILY ALEIDA Administration Simvastatin 10 mg 02/05/19 21:00 02/06/19 20:43 Zocor PO 10 mg HS ALEIDA Administration Trazodone HCl 100 mg 02/05/19 21:00 02/06/19 20:45 Desyrel PO 100 mg HS ALEIDA Administration Zolpidem Tartrate 5 mg 02/05/19 07:23 02/06/19 20:45 Ambien PO 5 mg HSPRN PRN Administration Insomnia - Exam General Appearance: awake alert General - other findings: obese Eye: anicteric sclera ENT: normocephalic atraumatic Neck: symmetric, no JVD Heart: RRR, no murmur Respiratory: no wheezes, no rales, no ronchi, normal chest expansion Gastrointestinal: soft, non-tender, non-distended, normal bowel sounds Gastrointestinal - other findings: suprapubic catheter noted Extremities: no cyanosis, no edema Neurological: CN's grossly intact, no focal deficits Psychiatric: normal affect, A&O x 3 Hosp A/P (1) Neurogenic bladder Code(s): N31.9 - NEUROMUSCULAR DYSFUNCTION OF BLADDER, UNSPECIFIED Status: Acute (2) Epididymitis with no abscess Code(s): N45.1 - EPIDIDYMITIS Status: Acute (3) UTI (urinary tract infection) Status: Acute Qualifiers: Urinary tract infection type: catheter-associated UTI Indwelling urinary catheter type: cystostomy catheter (4) CKD (chronic kidney disease) stage 3, GFR 30-59 ml/min Code(s): N18.3 - CHRONIC KIDNEY DISEASE, STAGE 3 (MODERATE) Status: Chronic (5) Diabetes type 2, controlled Code(s): E11.9 - TYPE 2 DIABETES MELLITUS WITHOUT COMPLICATIONS Status: Chronic (6) Hypertension Code(s): I10 - ESSENTIAL (PRIMARY) HYPERTENSION Status: Chronic (7) Hypothyroidism Code(s): E03.9 - HYPOTHYROIDISM, UNSPECIFIED Status: Chronic (8) Morbid obesity with BMI of 40.0-44.9, adult Code(s): E66.01 - MORBID (SEVERE) OBESITY DUE TO EXCESS CALORIES; Z68.41 - BODY MASS INDEX (BMI) 40.0-44.9, ADULT Status: Chronic (9) Pseudodementia Code(s): F68.11 - FACTIT DISORD IMPOSED ON SELF, WITH PREDOM PSYCH SIGNS/SYMP Status: Chronic (10) Schizoaffective disorder Code(s): F25.9 - SCHIZOAFFECTIVE DISORDER, UNSPECIFIED Status: Chronic (11) Suprapubic catheter Code(s): Z93.59 - OTHER CYSTOSTOMY STATUS Status: Chronic (12) Chronic diastolic (congestive) heart failure Code(s): I50.32 - CHRONIC DIASTOLIC (CONGESTIVE) HEART FAILURE Status: Acute - Plan Continue meropenem. DC vancomycin as urine culture is growing only a gram negat bacilli Continue other treatments Possible discharge tomorrow if microbe ID and susceptibility are available
[2019-02-07] MEDS: traZODone HCl 50 MG TAB PO SCH (21:09)
[2019-02-07] MEDS: Simvastatin 5 MG TAB PO SCH (21:11)
[2019-02-07] MEDS: Donepezil HCl 10 MG TAB PO SCH (21:11)
[2019-02-07] MEDS: Zolpidem Tartrate 5 MG TAB PO PRN (23:51)
[2019-02-07] MEDS: Sodium Chloride 0.9% 1,000 ML IV SCH (23:59)
--- NOTE | 2019-02-08 00:43 | PDOC.EVN ---
Event Note - Event Note Event Note: Patient with leaking from suprapubic catheter insertion site, absorbent dressing applied by RN. Still with adequate output via catheter. Will notify day team to have Urology assess during the day.
[2019-02-08 04:26] VITALS: TEMP 97.5
[2019-02-08 05:59] LABS: #Basophils 0.1 thou/uL (0.0-0.2); #Eosinphils 0.8 thou/uL (0.0-0.7); #Lymphocytes 1.9 thou/uL (1.20-3.40); #Monocytes 0.9 thou/uL (0.11-0.59); #Neutrophils 7.6 thou/uL (1.40-6.50); %Basophils 0.8 % (0.0-1.0); %Eosinophils 7.4 % (0.0-10.0); %Lymphocytes 16.4 % (21.0-51.0); %Neutrophils 67.3 % (42.0-75.0); Hemoglobin 11.8 g/dL (14.0-18.0); Mean Corpuscular HGB CONC 34.2 g/dL (32.0-36.0); Mean Corpuscular Hemoglobin 31.3 pg (27.0-31.0); Mean Corpuscular Volume 91.7 fL (78.0-98.0); Mean Platelet Volume 7.3 fL (7.4-10.4); Platelet Count 261 thou/uL (130-400); RBC Distribution Width 12.6 % (11.5-14.5); Red Blood Cell (RBC) Count 3.76 mill/uL (4.70-6.10); White Blood Cell (WBC) Count 11.3 thou/uL (4.8-10.8)
[2019-02-08 06:18] LABS: Albumin 3.5 g/dL (3.5-5.0); Anion Gap 11 mmol/L (10-20); BUN (Urea Nitrogen) 14 mg/dL (8.4-25.7); BUN/Creatinine Ratio 10.22; Calc. Creatinine Clearance 104 mL/min (70-130); Calcium 9.5 mg/dL (7.8-10.44); Carbon Dioxide 27 mmol/L (22-29); Chloride 101 mmol/L (98-107); Estimated GFR-MDRD 53; Glucose 114 mg/dL (70-105); Phosphorus 4.2 mg/dL (2.3-4.7); Potassium 4.3 mmol/L (3.5-5.1); Sodium 135 mmol/L (136-145)
[2019-02-08] MEDS: Mometasone/Formoterol 120 PUFF INHALER INH SCH (06:59)
[2019-02-08] MEDS ORDERED: glipiZIDE 5 MG TAB PO SCH (07:30)
[2019-02-08] MEDS ORDERED: EPINEPHrine 1 MG/10 ML Abboject SYRINGE IVP PRN (09:32)
--- NOTE | 2019-02-08 09:35 | PDOC.HOSPP ---
- Subjective Encounter Date: 02/08/19 Encounter Time: 09:33 Subjective: 59 y/o male, [place] resident with neurogenic bladder s/p suprapubic catheter, who was recently discharged from this hospital following treatment for UTI now readmited due to scrotal swelling and pain associated with fever, chills, nausea and vomiting. found to have epididymitis on US as well as UTI. Started on antibiotics with improvement. Fever, nausea and vomiting have subsided. - Objective Vital Signs & Weight: Vital Signs (12 hours) Temp Pulse Resp BP Pulse Ox 02/08/19 07:22 97.5 F L 63 12 122/57 L 96 02/08/19 06:46 56 L 14 97 02/08/19 04:26 97.5 F L 60 20 131/61 94 L 02/07/19 23:48 97.8 F 64 20 118/57 L 93 L Weight Weight 275 lb 6.4 oz I&O: 02/07/19 02/08/19 02/09/19 06:59 06:59 06:59 Intake Total 6010 3052 Output Total 8500 7000 Balance -0699 -2573 Result Diagrams: 02/08/19 05:47 02/08/19 05:47 Additional Labs: Accuchecks 02/08/19 02/07/19 02/07/19 04:36 20:47 16:53 POC Glucose 129 H 117 H 131 H 02/07/19 10:51 POC Glucose 139 H Hospitalist ROS - Medication Medications: Active Medications Generic Name Dose Route Start Last Admin Trade Name Freq PRN Reason Stop Dose Admin Hydrocodone Bitart/Acetaminophen 1 tab 02/05/19 07:23 02/07/19 21:11 [place] 5/325 PO 1 tab Q4H PRN Administration Moderate Pain (4-6) Albuterol/Ipratropium 3 ml 02/06/19 06:30 02/08/19 06:46 Duoneb NEB 3 ml TID-RT ALEIDA Administration Aspirin 81 mg 02/05/19 09:00 02/07/19 09:16 Ecotrin PO 81 mg DAILY ALEIDA Administration Benztropine Mesylate 1 mg 02/05/19 09:00 02/07/19 21:09 Cogentin PO 1 mg BID ALEIDA Administration Divalproex Sodium 1,000 mg 02/05/19 09:00 02/07/19 09:16 Depakote Er PO 1,000 mg DAILY ALEIDA Administration Donepezil HCl 10 mg 02/05/19 21:00 02/07/19 21:11 Aricept PO 10 mg HS ALEIDA Administration Enoxaparin Sodium 40 mg 02/05/19 09:00 02/07/19 09:16 Lovenox SC 40 mg 0900 ALEIDA Administration Famotidine 20 mg 02/05/19 09:00 02/07/19 21:10 Pepcid PO 20 mg BID ALEIDA Administration Finasteride 5 mg 02/05/19 09:00 02/07/19 09:16 Proscar PO 5 mg DAILY ALEIDA Administration Fluoxetine HCl 20 mg 02/05/19 09:00 02/07/19 09:17 Prozac PO 20 mg DAILY ALEIDA Administration Guaifenesin 200 mg 02/05/19 07:23 02/06/19 15:50 Robitussin Sf PO 200 mg Q4H PRN Administration Cough Sodium Chloride 1,000 mls @ 50 mls/hr 02/05/19 07:30 02/07/19 23:59 Normal Saline 0.9% IV 1,000 mls .Q20H ALEIDA Administration Meropenem 1 gm/ Device 50 mls @ 100 mls/hr 02/05/19 08:00 02/07/19 23:55 IVPB 50 mls 0800,1600,2359 ALEIDA Administration Levothyroxine Sodium 25 mcg 02/05/19 09:00 02/07/19 09:17 Synthroid PO 25 mcg DAILY ALEIDA Administration Lisinopril 2.5 mg 02/05/19 09:00 02/07/19 09:17 Zestril PO 2.5 mg DAILY ALEIDA Administration Midodrine 5 mg 02/05/19 09:00 02/07/19 21:08 Proamatine PO 5 mg TID ALEIDA Administration Mometasone Furoate/Formoterol Fumar 2 puff 02/06/19 06:30 02/08/19 06:59 Dulera 200 Mcg/5 Mcg Inhaler INH 2 puff BID-RT ALEIDA Administration Risperidone 3 mg 02/05/19 09:00 02/07/19 21:09 Risperidone PO 3 mg BID ALEIDA Administration Saccharomyces Boulardii 250 mg 02/05/19 09:00 02/07/19 09:17 Florastor PO 250 mg DAILY ALEIDA Administration Simvastatin 10 mg 02/05/19 21:00 02/07/19 21:11 Zocor PO 10 mg HS LAEIDA Administration Trazodone HCl 100 mg 02/05/19 21:00 02/07/19 21:09 Desyrel PO 100 mg HS ALEIDA Administration Zolpidem Tartrate 5 mg 02/05/19 07:23 02/07/19 23:51 Ambien PO 5 mg HSPRN PRN Administration Insomnia - Exam General Appearance: awake alert General - other findings: obese Eye: anicteric sclera ENT: normocephalic atraumatic, moist mucosa Neck: supple, no JVD Heart: RRR Respiratory: no wheezes, no rales, no ronchi, normal chest expansion Gastrointestinal: soft, non-tender, non-distended, normal bowel sounds Gastrointestinal - other findings: obese. Suprapubic catheter noted Extremities: no cyanosis, no edema Neurological: CN's grossly intact, no focal deficits Neurological - other findings: memory lapses noted Psychiatric: normal affect, A&O x 3 Hosp A/P (1) Neurogenic bladder Code(s): N31.9 - NEUROMUSCULAR DYSFUNCTION OF BLADDER, UNSPECIFIED Status: Acute (2) Epididymitis with no abscess Code(s): N45.1 - EPIDIDYMITIS Status: Acute (3) UTI (urinary tract infection) Status: Acute Qualifiers: Urinary tract infection type: catheter-associated UTI Indwelling urinary catheter type: cystostomy catheter (4) CKD (chronic kidney disease) stage 3, GFR 30-59 ml/min Code(s): N18.3 - CHRONIC KIDNEY DISEASE, STAGE 3 (MODERATE) Status: Chronic (5) Diabetes type 2, controlled Code(s): E11.9 - TYPE 2 DIABETES MELLITUS WITHOUT COMPLICATIONS Status: Chronic (6) Hypertension Code(s): I10 - ESSENTIAL (PRIMARY) HYPERTENSION Status: Chronic (7) Hypothyroidism Code(s): E03.9 - HYPOTHYROIDISM, UNSPECIFIED Status: Chronic (8) Morbid obesity with BMI of 40.0-44.9, adult Code(s): E66.01 - MORBID (SEVERE) OBESITY DUE TO EXCESS CALORIES; Z68.41 - BODY MASS INDEX (BMI) 40.0-44.9, ADULT Status: Chronic (9) Pseudodementia Code(s): F68.11 - FACTIT DISORD IMPOSED ON SELF, WITH PREDOM PSYCH SIGNS/SYMP Status: Chronic (10) Schizoaffective disorder Code(s): F25.9 - SCHIZOAFFECTIVE DISORDER, UNSPECIFIED Status: Chronic (11) Suprapubic catheter Code(s): Z93.59 - OTHER CYSTOSTOMY STATUS Status: Chronic (12) Chronic diastolic (congestive) heart failure Code(s): I50.32 - CHRONIC DIASTOLIC (CONGESTIVE) HEART FAILURE Status: Acute (13) Pseudomonas aeruginosa infection Code(s): A49.8 - OTHER BACTERIAL INFECTIONS OF UNSPECIFIED SITE Status: Acute - Plan Awaiting pseudomonas susceptibility.Continue meropenem. Do a trial of levaquin in case pseudomonas is susceptible. Patient has history of allergy to cipro Continue other treatments For discharge tomorrow once pseudomonas susceptibility is available
[2019-02-08] MEDS: Levothyroxine Sodium 25 MCG TAB PO SCH (09:50)
[2019-02-08] MEDS: FLUoxetine HCl 20 MG CAP PO SCH (09:50)
[2019-02-08] MEDS: Finasteride 5 MG TAB PO SCH (09:50)
[2019-02-08] MEDS: Lisinopril 2.5 MG TAB PO SCH (09:50)
[2019-02-08] MEDS: Aspirin 81 mg Enteric Coated Tablet PO SCH (09:51)
[2019-02-08] MEDS: Benztropine 1 MG TAB PO SCH (09:51)
[2019-02-08] MEDS: Midodrine HCl 5 MG TAB PO SCH ×2 (09:51→14:04)
[2019-02-08] MEDS: Saccharomyces boulardii 250 MG CAP PO SCH (09:51)
[2019-02-08] MEDS: Enoxaparin Sodium 40 MG/0.4 ML SYRINGE SC SCH (09:52)
[2019-02-08] MEDS: MEROPENEM 1 GM/50 ML 1 GM in Premix Bag 1 BAG IVPB SCH ×2 (09:52→15:54)
[2019-02-08] MEDS: risperiDONE 3 MG TAB PO SCH (09:52)
[2019-02-08] MEDS: Famotidine 20 MG TAB PO SCH (10:35)
[2019-02-08 12:16] VITALS: BP 150/67
--- NOTE | 2019-02-08 16:00 | PDOC.EVN ---
Event Note - Event Note Event Note: Discharged. Discharge summary dictated #[id number]
--- NOTE | 2019-02-08 16:29 | DIS ---
DATE OF ADMISSION: 02/05/2019 DATE OF DISCHARGE: 02/08/2019 PRIMARY CARE PHYSICIAN: Tomeka Blas MD DISCHARGE DIAGNOSES: 1. Epididymitis with no abscess. 2. Catheter-associated urinary tract infection. 3. Pseudomonas urinary tract infection. 4. Diabetes mellitus. 5. Hypertension. 6. Hypothyroidism. 7. Morbid obesity with BMI of 40% to 45%. 8. Neurogenic bladder status post suprapubic catheter placement. 9. Schizoaffective disorder. 10. Chronic diastolic heart failure. 11. Chronic suprapubic catheter. CONSULTS: Urology. HOSPITAL COURSE: A 59-year-old male with neurogenic bladder status post suprapubic catheter, who recently was discharged from this hospital following treatment for UTI, diarrhea, admitted due to scrotal swelling and pain associated with fever, chills, nausea and vomiting. The patient was found to have epididymitis on ultrasound and also had features of urinary tract infection. He was started on broad-spectrum antibiotic treatment with vancomycin and meropenem. Fever subsided as well as nausea and vomiting, and the patient was ambulating. Urine culture came back positive for Pseudomonas, which was pansensitive. The patient was treated with Levaquin in this hospital given prior history of allergic reaction to ciprofloxacin. He tolerated Levaquin well with no allergic reaction and was subsequently discharged home to complete outpatient therapy with levofloxacin. DISCHARGE CONDITION: Improved. DISCHARGE DISPOSITION: Home with Home Health. FOLLOWUP: With PCP in 7 days. DISCHARGE MEDICATIONS: 1. Acetaminophen 325 p.o. q.4 p.r.n. 2. Aspirin 81 mg p.o. daily. 3. Cogentin 1 mg p.o. b.i.d. 4. Budesonide one puff inhalation b.i.d. 5. Divalproex sodium 1000 mg p.o. daily. 6. Docusate sodium 250 mg capsule p.o. b.i.d. 7. Donepezil 10 mg p.o. daily at bedtime. 8. Finasteride 5 mg p.o. daily. 9. Prozac 20 mg p.o. daily. 10. Glipizide 5 mg p.o. b.i.d. 11. DuoNeb 3 mL nebulization t.i.d. 12. Levothyroxine 25 mcg p.o. daily. 13. Lisinopril 2.5 mg p.o. daily. 14. Pravastatin 20 mg p.o. daily at bedtime. 15. Risperdal 3 mg p.o. b.i.d. 16. Trazodone 100 mg p.o. daily at bedtime. 17. Levofloxacin 750 mg p.o. daily for 10 days. 18. Florastor 250 mg capsule daily for 14 days. TIME SPENT: This discharge took more than 35 minutes. Job ID: [id number]
== END 2019-02-08 16:51 | disposition home or self-care (01) ==
LOC: ERS 02:33 → 2SW 04:07
PROVIDERS: ADMIT Internal Medicine; ATTEND Internal Medicine
DX: N45.1 Epididymitis (principal); T83.511A Infection and inflammatory reaction due to indwelling urethral catheter, initial encounter; N30.20 Other chronic cystitis without hematuria; B96.5 Pseudomonas (aeruginosa) (mallei) (pseudomallei) as the cause of diseases classified elsewhere; N40.1 Benign prostatic hyperplasia with lower urinary tract symptoms; N13.8 Other obstructive and reflux uropathy; R33.8 Other retention of urine; I13.0 Hypertensive heart and chronic kidney disease with heart failure and stage 1 through stage 4 chronic kidney disease, or unspecified chronic kidney disease; E11.22 Type 2 diabetes mellitus with diabetic chronic kidney disease; N18.3 Chronic kidney disease, stage 3 (moderate); I50.9 Heart failure, unspecified; N17.9 Acute kidney failure, unspecified; E03.9 Hypothyroidism, unspecified; E66.01 Morbid (severe) obesity due to excess calories; E87.1 Hypo-osmolality and hyponatremia; E86.0 Dehydration; E87.8 Other disorders of electrolyte and fluid balance, not elsewhere classified; J44.9 Chronic obstructive pulmonary disease, unspecified; F41.8 Other specified anxiety disorders; F32.9 Major depressive disorder, single episode, unspecified; F03.90 Unspecified dementia, unspecified severity, without behavioral disturbance, psychotic disturbance, mood disturbance, and anxiety; K59.09 Other constipation; E78.5 Hyperlipidemia, unspecified; Z68.41 Body mass index [BMI] 40.0-44.9, adult; Z79.82 Long term (current) use of aspirin; Z79.899 Other long term (current) drug therapy; Z87.891 Personal history of nicotine dependence; Z88.1 Allergy status to other antibiotic agents; Z88.8 Allergy status to other drugs, medicaments and biological substances
CPT/HCPCS: 36415; 36416; 76870; 80048; 80069; 80202; 85025; 93976; 94640; 96361; 96365; 96366; 96367; 96372; G0378; J1650; J2185; J3370; J3490; J7620

== ENCOUNTER 2019-02-13 18:26 | Emergency (ER) | payer OTHER ==
--- NOTE | 2019-02-13 18:50 | RAD ---
EXAM: Single view of the chest HISTORY: Body aches and chills. Sepsis. Chest pain. COMPARISON: 02/04/2019 FINDINGS: Single view of the chest shows a normal sized cardiomediastinal silhouette. There is no luisa dence of consolidation, mass, or pleural effusion. The bones are unremarkable. IMPRESSION: No evidence of acute cardiopulmonary disease
[2019-02-13 19:00] LABS: #Basophils 0.1 thou/uL (0.0-0.2); #Eosinphils 0.3 thou/uL (0.0-0.7); #Lymphocytes 1.4 thou/uL (1.20-3.40); #Neutrophils 6.7 thou/uL (1.40-6.50); %Basophils 0.5 % (0.0-1.0); %Eosinophils 3.6 % (0.0-10.0); %Lymphocytes 14.9 % (21.0-51.0); %Monocytes 10.3 % (0.0-10.0); %Neutrophils 70.6 % (42.0-75.0); Hemoglobin 11.8 g/dL (14.0-18.0); Mean Corpuscular HGB CONC 35.1 g/dL (32.0-36.0); Mean Corpuscular Hemoglobin 31.8 pg (27.0-31.0); Mean Corpuscular Volume 90.8 fL (78.0-98.0); Mean Platelet Volume 7.5 fL (7.4-10.4); Platelet Count 261 thou/uL (130-400); RBC Distribution Width 12.4 % (11.5-14.5); Red Blood Cell (RBC) Count 3.71 mill/uL (4.70-6.10); White Blood Cell (WBC) Count 9.4 thou/uL (4.8-10.8)
[2019-02-13 19:06] LABS: Bilirubin Negative (Negative); Blood, Urine Negative (Negative); Clarity Clear (Clear); Glucose, Urine (Dipstick) 100 mg/dL (Negative); Leukocyte Negative Leu/uL (Negative); Nitrite Negative (Negative); Protein, Urine (Dipstick) Negative (Neg-Trace); Urobilinogen Normal mg/dL (Less than 2)
[2019-02-13 19:21] LABS: ALT (SGPT) 16 U/L (8-55); AST (SGOT) 11 U/L (5-34); Albumin 3.7 g/dL (3.5-5.0); Alkaline Phosphatase 77 U/L (40-150); Anion Gap 14 mmol/L (10-20); BUN (Urea Nitrogen) 9 mg/dL (8.4-25.7); Bilirubin, Total 0.3 mg/dL (0.2-1.2); CK (CPK) 150 U/L (30-200); Calc. Creatinine Clearance 0 mL/min (70-130); Calcium 8.3 mg/dL (7.8-10.44); Carbon Dioxide 22 mmol/L (22-29); Chloride 93 mmol/L (98-107); Estimated GFR-MDRD 56; Globulin 2.2 g/dL (2.4-3.5); Glucose 152 mg/dL (70-105); Potassium 3.9 mmol/L (3.5-5.1); Protein, Total 5.9 g/dL (6.0-8.3); Sodium 125 mmol/L (136-145)
== END 2019-02-13 20:56 | disposition home or self-care (01) ==
LOC: ERS 18:26
DX: R07.9 Chest pain, unspecified (principal); E87.1 Hypo-osmolality and hyponatremia; E11.9 Type 2 diabetes mellitus without complications; E03.9 Hypothyroidism, unspecified; J44.9 Chronic obstructive pulmonary disease, unspecified; I11.0 Hypertensive heart disease with heart failure; I50.9 Heart failure, unspecified; E78.5 Hyperlipidemia, unspecified; F31.9 Bipolar disorder, unspecified; N40.0 Benign prostatic hyperplasia without lower urinary tract symptoms; F20.9 Schizophrenia, unspecified; Z86.73 Personal history of transient ischemic attack (TIA), and cerebral infarction without residual deficits
CPT/HCPCS: 36415; 71045; 80053; 81003; 82550; 83605; 84484; 85025; 87086; 93005

== ENCOUNTER 2019-02-19 23:07 | Observation (INO) | payer MEDICARE, OTHER ==
[2019-02-20 00:19] VITALS: BMI 41.3
[2019-02-20] MEDS ORDERED: Acetaminophen 325 MG TAB PO PRN (00:32)
--- NOTE | 2019-02-20 00:51 | PDOC.HHP ---
Hospitalist HPI - History of Present Illness H&P dictated [id number]
[2019-02-20] MEDS ORDERED: Dextrose 50% Abboject 50 ML SYRINGE SLOW IVP PRN (00:57)
[2019-02-20] MEDS ORDERED: HumaLOG 300 UNITS/3 ML VIAL SC PRN (00:57)
[2019-02-20] MEDS ORDERED: Dextrose 5% in Water 1,000 ML IV PRN (00:57)
[2019-02-20] MEDS: Sodium Chloride 0.9% 1,000 ML IV SCH ×3 (01:00→21:44)
[2019-02-20] MEDS ORDERED: traZODone HCl 50 MG TAB PO SCH ×2 (01:15→21:00)
[2019-02-20] MEDS ORDERED: Pravastatin Sodium 20 MG TAB PO SCH ×2 (01:15→21:00)
[2019-02-20] MEDS ORDERED: risperiDONE 3 MG TAB PO SCH (01:15)
--- NOTE | 2019-02-20 02:53 | HP ---
CHIEF COMPLAINT: Dizziness and weakness. HISTORY OF PRESENT ILLNESS: Mr. Gaines is a 59-year-old male with past medical history of recurrent urinary tract infections, urinary retention, suprapubic catheter, diabetes, hypothyroidism, hypertension, COPD, congestive heart failure, hyperlipidemia, CVA, among others, presents to [place] emergency room with weakness, dizziness. The patient earlier vomited four times. Workup in the emergency room, the patient was found to be hyponatremic with a sodium of 124. The patient denies abdominal pain or diarrhea, fever, or chills. The patient is being admitted to the hospital for further management. PAST MEDICAL HISTORY: 1. Chronic cystitis. 2. Urinary retention, suprapubic catheter. 3. Degenerative joint disease. 4. Diabetes, type 2. 5. Hypothyroidism. 6. Hypertension. 7. COPD. 8. Congestive heart failure. 9. Hyperlipidemia. 10. Chronic kidney disease. 11. CVA. PAST SURGICAL HISTORY: 1. Suprapubic catheter. 2. Left knee surgery. 3. Bladder surgery x2. PSYCHIATRIC HISTORY: History of bipolar disorder, schizoaffective disorder. SOCIAL HISTORY: Denies smoking, alcohol drinking, or drug abuse. FAMILY HISTORY: Reviewed and noncontributory. ALLERGIES: 1. THE PATIENT IS ALLERGIC TO CIPRO. 2. NORTRIPTYLINE. 3. PAMELOR. 4. THIOTHIXENE. HOME MEDICATIONS: Please see home medication reconciliation form for updated medications. REVIEW OF SYSTEMS: Review of 14 systems is negative except what is mentioned in the history of present illness. PHYSICAL EXAMINATION: GENERAL: The patient is awake, alert, does not appear to be in acute distress. VITAL SIGNS: Blood pressure 143/70, pulse is 62, respiratory rate is 18, temperature is 98.6. HEAD AND NECK: Normocephalic and atraumatic. NECK: Supple. No JVD. CHEST: Fair bilateral air entry. HEART: S1, S2. Regular. ABDOMEN: Soft, nontender. Bowel sounds present. NEUROLOGIC: Awake, alert, oriented x3. PSYCH: Normal mood. EXTREMITIES: No clubbing or cyanosis. LABORATORY DATA: Sodium 124, potassium 4.1, BUN 8, creatinine 1.2. ALT and AST normal, alkaline phosphatase normal. WBC count 10.3, hemoglobin 11.5, platelets 209. Urinalysis showed moderate amount of blood with only 4 wbc's. ASSESSMENT: Mr. Gaines is a 59-year-old male with multiple medical problems, psychiatric history, diabetes, hypertension, chronic kidney disease, among others, presents to the emergency room with weakness, dizziness, workup. The patient was found to have hyponatremia. 1. Acute hyponatremia could be secondary to vomiting/volume depletion. 2. Diabetes. 3. Hypertension. 4. Chronic kidney disease. 5. Schizoaffective disorder. 6. Cystitis/history of recurrent urinary tract infections/suprapubic catheter. PLAN: 1. Admit. 2. Start the patient on IV normal saline tonight. 3. Reassess fluids in a.m. 4. Reconcile home medications. 5. DVT prophylaxis. Low molecular weight heparin/SCD. 6. Expected length of stay at least one midnight if patient is stable. Job ID: [id number]
[2019-02-20 06:30] LABS: #Basophils 0.1 thou/uL (0.0-0.2); #Eosinphils 0.5 thou/uL (0.0-0.7); #Lymphocytes 1.4 thou/uL (1.20-3.40); #Monocytes 0.8 thou/uL (0.11-0.59); #Neutrophils 3.8 thou/uL (1.40-6.50); %Basophils 0.8 % (0.0-1.0); %Eosinophils 8.3 % (0.0-10.0); %Lymphocytes 21.1 % (21.0-51.0); %Monocytes 12.3 % (0.0-10.0); %Neutrophils 57.5 % (42.0-75.0); Hemoglobin 11.8 g/dL (14.0-18.0); Mean Corpuscular Hemoglobin 32.2 pg (27.0-31.0); Mean Platelet Volume 7.8 fL (7.4-10.4); Platelet Count 191 thou/uL (130-400); RBC Distribution Width 12.7 % (11.5-14.5); Red Blood Cell (RBC) Count 3.67 mill/uL (4.70-6.10); White Blood Cell (WBC) Count 6.6 thou/uL (4.8-10.8)
[2019-02-20 06:48] LABS: Anion Gap 9 mmol/L (10-20); BUN (Urea Nitrogen) 7 mg/dL (8.4-25.7); Calc. Creatinine Clearance 118 mL/min (70-130); Calcium 8.7 mg/dL (7.8-10.44); Carbon Dioxide 25 mmol/L (22-29); Chloride 99 mmol/L (98-107); Estimated GFR-MDRD 61; Glucose 105 mg/dL (70-105); Sodium 129 mmol/L (136-145)
[2019-02-20] MEDS: Enoxaparin Sodium 40 MG/0.4 ML SYRINGE SC SCH (08:53)
[2019-02-20] MEDS: Famotidine 20 MG TAB PO SCH ×2 (08:54→20:55)
[2019-02-20] MEDS: risperiDONE 3 MG TAB PO SCH ×2 (08:54→20:57)
[2019-02-20] MEDS ORDERED: Ondansetron PF 4 MG/2 ML Vial IVP PRN (10:33)
[2019-02-20 10:36] LABS: Bilirubin Negative (Negative); Blood, Urine Negative (Negative); Clarity Clear (Clear); Glucose, Urine (Dipstick) Normal (Negative); Leukocyte Negative Leu/uL (Negative); Nitrite Negative (Negative); Protein, Urine (Dipstick) Negative (Neg-Trace); RBC/HPF None Seen HPF (0-3); Squamous Epithelial None Seen HPF (0-3); Urobilinogen Normal mg/dL (Less than 2); WBC/HPF 0-3 HPF (0-3)
[2019-02-20 10:51] LABS: Bacteria/HPF Rare-Few HPF (None Seen); Yeast-Budding 1+ HPF (None Seen)
[2019-02-20 10:52] LABS: Urine Culture Reflex No No
[2019-02-20] MEDS ORDERED: Mometasone/Formoterol 120 PUFF INHALER INH SCH (14:00)
[2019-02-20] MEDS: Mometasone/Formoterol 120 PUFF INHALER INH SCH (19:03)
[2019-02-20] MEDS: Benztropine 1 MG TAB PO SCH (20:54)
[2019-02-20] MEDS: Docusate 100 MG CAP PO SCH (20:55)
[2019-02-20] MEDS ORDERED: Donepezil HCl 10 MG TAB PO SCH (21:00)
[2019-02-21 04:54] LABS: Anion Gap 10 mmol/L (10-20); BUN (Urea Nitrogen) 8 mg/dL (8.4-25.7); Calc. Creatinine Clearance 110 mL/min (70-130); Calcium 8.6 mg/dL (7.8-10.44); Carbon Dioxide 26 mmol/L (22-29); Chloride 103 mmol/L (98-107); Estimated GFR-MDRD 56; Glucose 110 mg/dL (70-105); Potassium 4.3 mmol/L (3.5-5.1); Sodium 135 mmol/L (136-145)
[2019-02-21] MEDS: Mometasone/Formoterol 120 PUFF INHALER INH SCH (06:49)
[2019-02-21] MEDS ORDERED: glipiZIDE 5 MG TAB PO SCH (09:00)
[2019-02-21] MEDS ORDERED: Finasteride 5 MG TAB PO SCH (09:00)
[2019-02-21] MEDS ORDERED: Levothyroxine Sodium 25 MCG TAB PO SCH (09:00)
[2019-02-21] MEDS ORDERED: Multivit, Therapeutic 1 TAB PO SCH (09:00)
[2019-02-21] MEDS ORDERED: Saccharomyces boulardii 250 MG CAP PO SCH (09:00)
[2019-02-21] MEDS ORDERED: Aspirin 81 mg Enteric Coated Tablet PO SCH (09:00)
[2019-02-21] MEDS ORDERED: FLUoxetine HCl 20 MG CAP PO SCH (09:00)
[2019-02-21] MEDS ORDERED: Lisinopril 2.5 MG TAB PO SCH (09:00)
[2019-02-21] MEDS: Sodium Chloride 0.9% 1,000 ML IV SCH (09:27)
[2019-02-21] MEDS: Benztropine 1 MG TAB PO SCH (09:29)
[2019-02-21] MEDS: Docusate 100 MG CAP PO SCH (09:29)
[2019-02-21] MEDS: Famotidine 20 MG TAB PO SCH (09:30)
[2019-02-21] MEDS: Enoxaparin Sodium 40 MG/0.4 ML SYRINGE SC SCH (09:30)
[2019-02-21] MEDS: risperiDONE 3 MG TAB PO SCH (09:31)
[2019-02-21 12:01] VITALS: BP 141/68; TEMP 97.5
--- NOTE | 2019-02-21 18:57 | DIS ---
DATE OF ADMISSION: 02/19/2019 DATE OF DISCHARGE: 02/21/2019 DISCHARGE DISPOSITION: Home. FOLLOWUP: 1. Follow up with primary care physician, Dr. Blas, in 1 week. 2. Basic metabolic profile after 1 week is recommended. Primary care physician advised to follow. The patient was seen and examined on the day of discharge. Denies any new complaints. No chest pain, shortness of breath, or palpitations reported. BRIEF HOSPITAL COURSE: The patient is a 59-year-old male with hypertension, diabetes mellitus type 2, chronic urinary retention, status post suprapubic catheter, presented to the hospital with generalized weakness and dizziness. His workup at [place] was consistent with hyponatremia with sodium of 124. His sodium gradually improved with IV hydration. His sodium today is 135. Symptomatically, he feels much better. Generalized weakness has significantly improved. He appears stable for discharge. FINAL DIAGNOSES: 1. Acute hyponatremia secondary to volume depletion from vomiting, improved. 2. Hypertension. 3. Diabetes mellitus, type 2. 4. Chronic kidney disease, stage 2. 5. Schizoaffective disorder. 6. Chronic urinary retention, status post suprapubic catheter. 7. Chronic obstructive pulmonary disease. 8. History of cerebrovascular accident. 9. Physical deconditioning. DISCHARGE MEDICATIONS: Same as admission medications. No changes were made. Job ID: [id number]
== END 2019-02-21 15:52 | disposition home or self-care (01) ==
LOC: 2SW 23:54
PROVIDERS: ADMIT Internal Medicine; ATTEND Internal Medicine
DX: E86.9 Volume depletion, unspecified (principal); E87.1 Hypo-osmolality and hyponatremia; I13.0 Hypertensive heart and chronic kidney disease with heart failure and stage 1 through stage 4 chronic kidney disease, or unspecified chronic kidney disease; E11.22 Type 2 diabetes mellitus with diabetic chronic kidney disease; N18.2 Chronic kidney disease, stage 2 (mild); I50.9 Heart failure, unspecified; N30.20 Other chronic cystitis without hematuria; E03.9 Hypothyroidism, unspecified; J44.9 Chronic obstructive pulmonary disease, unspecified; E78.5 Hyperlipidemia, unspecified; F25.9 Schizoaffective disorder, unspecified; Z86.73 Personal history of transient ischemic attack (TIA), and cerebral infarction without residual deficits; Z88.1 Allergy status to other antibiotic agents; Z88.8 Allergy status to other drugs, medicaments and biological substances
CPT/HCPCS: 36415; 36416; 80048; 81001; 85025; 87086; 94640; 96361; 96372; 96374; G0378; J1650; J2405; J7620

== ENCOUNTER 2019-09-30 21:05 | Emergency (ER) | payer MEDICARE, SELFPAY ==
[2019-09-30 21:36] LABS: Bacteria/HPF 4+ HPF (None Seen); Bilirubin Negative (Negative); Blood, Urine Trace (Negative); Clarity Turbid (Clear); Glucose, Urine (Dipstick) Normal (Negative); Leukocyte Negative Leu/uL (Negative); Nitrite 2+ (Negative); Protein, Urine (Dipstick) Negative (Neg-Trace); RBC/HPF 0-3 HPF (0-3); Squamous Epithelial None Seen HPF (0-3); Urobilinogen Normal mg/dL (Less than 2); WBC/HPF 0-3 HPF (0-3)
[2019-09-30] MEDS ORDERED: cefTRIAXone\\ROCEPHIN 2 GM VIAL ONE (21:56)
[2019-09-30 22:15] LABS: #Basophils 0.1 thou/uL (0.0-0.2); #Eosinphils 0.9 thou/uL (0.0-0.7); #Monocytes 1.1 thou/uL (0.11-0.59); #Neutrophils 7.1 thou/uL (1.40-6.50); %Basophils 0.8 % (0.0-1.0); %Eosinophils 8.1 % (0.0-10.0); %Monocytes 9.7 % (0.0-10.0); %Neutrophils 63.5 % (42.0-75.0); Hemoglobin 12.4 g/dL (14.0-18.0); Mean Corpuscular Hemoglobin 31.8 pg (27.0-31.0); Mean Platelet Volume 7.1 fL (7.4-10.4); Platelet Count 214 thou/uL (130-400); RBC Distribution Width 12.6 % (11.5-14.5); White Blood Cell (WBC) Count 11.2 thou/uL (4.8-10.8)
[2019-09-30 22:36] LABS: ALT (SGPT) 18 U/L (8-55); AST (SGOT) 17 U/L (5-34); Albumin 3.8 g/dL (3.5-5.0); Alkaline Phosphatase 80 U/L (40-110); Anion Gap 15 mmol/L (10-20); BUN (Urea Nitrogen) 13 mg/dL (8.4-25.7); Bilirubin, Total Less than 0.2 mg/dL (0.2-1.2); Calc. Creatinine Clearance 0 mL/min (70-130); Calcium 9.1 mg/dL (7.8-10.44); Carbon Dioxide 22 mmol/L (22-29); Chloride 97 mmol/L (98-107); Estimated GFR-MDRD 64; Globulin 2.8 g/dL (2.4-3.5); Glucose 110 mg/dL (70-105); Potassium 3.5 mmol/L (3.5-5.1); Protein, Total 6.6 g/dL (6.0-8.3); Sodium 130 mmol/L (136-145)
== END 2019-09-30 21:10 | disposition home or self-care (01) ==
LOC: ERS 21:05
DX: N32.89 Other specified disorders of bladder (principal); I11.0 Hypertensive heart disease with heart failure; I50.9 Heart failure, unspecified; E11.9 Type 2 diabetes mellitus without complications; E03.9 Hypothyroidism, unspecified; E78.5 Hyperlipidemia, unspecified; E78.00 Pure hypercholesterolemia, unspecified; J44.9 Chronic obstructive pulmonary disease, unspecified; F31.9 Bipolar disorder, unspecified; F25.9 Schizoaffective disorder, unspecified; Z87.891 Personal history of nicotine dependence; Z86.73 Personal history of transient ischemic attack (TIA), and cerebral infarction without residual deficits; Z79.2 Long term (current) use of antibiotics; Z79.84 Long term (current) use of oral hypoglycemic drugs; Z79.51 Long term (current) use of inhaled steroids; Z79.899 Other long term (current) drug therapy
CPT/HCPCS: 36415; 80053; 81003; 81015; 85025; 87077; 87086; 87186; 96365; J0696

== ENCOUNTER 2020-02-25 04:53 | Emergency (ER) | payer MEDICARE, OTHER ==
[2020-02-25 06:52] LABS: Anion Gap 18 mmol/L (10-20); BUN (Urea Nitrogen) 23 mg/dL (8.4-25.7); Calc. Creatinine Clearance 0 mL/min (70-130); Calcium 9.3 mg/dL (7.8-10.44); Carbon Dioxide 20 mmol/L (22-29); Chloride 92 mmol/L (98-107); Estimated GFR-MDRD 48; Glucose 140 mg/dL (70-105); Potassium 4.2 mmol/L (3.5-5.1); Sodium 126 mmol/L (136-145)
== END 2020-02-25 08:36 | disposition home or self-care (01) ==
LOC: ERS 04:53
DX: E87.1 Hypo-osmolality and hyponatremia (principal); E11.9 Type 2 diabetes mellitus without complications; E78.5 Hyperlipidemia, unspecified; E03.9 Hypothyroidism, unspecified; E78.00 Pure hypercholesterolemia, unspecified; M19.90 Unspecified osteoarthritis, unspecified site; I11.0 Hypertensive heart disease with heart failure; I50.9 Heart failure, unspecified; N40.0 Benign prostatic hyperplasia without lower urinary tract symptoms; F31.9 Bipolar disorder, unspecified; F25.9 Schizoaffective disorder, unspecified; F03.90 Unspecified dementia, unspecified severity, without behavioral disturbance, psychotic disturbance, mood disturbance, and anxiety; J44.9 Chronic obstructive pulmonary disease, unspecified; Z86.73 Personal history of transient ischemic attack (TIA), and cerebral infarction without residual deficits; Z87.891 Personal history of nicotine dependence; Z79.82 Long term (current) use of aspirin; Z79.899 Other long term (current) drug therapy
CPT/HCPCS: 80048; 99285

== ENCOUNTER 2020-04-28 20:24 | Inpatient (IN) | payer MEDICARE ==
[2020-04-28] MEDS ORDERED: Morphine 4 MG/ML VIAL ONE (20:47)
[2020-04-28] MEDS ORDERED: Ondansetron PF 4 MG/2 ML Vial ONE (20:47)
[2020-04-28 21:09] LABS: #Basophils 0.1 thou/uL (0.0-0.2); #Eosinphils 0.4 thou/uL (0.0-0.7); #Lymphocytes 1.9 thou/uL (1.20-3.40); #Monocytes 1.3 thou/uL (0.11-0.59); %Basophils 0.5 % (0.0-1.0); %Eosinophils 2.4 % (0.0-10.0); %Lymphocytes 13.1 % (21.0-51.0); %Monocytes 8.7 % (0.0-10.0); %Neutrophils 75.4 % (42.0-75.0); Hemoglobin 13.2 g/dL (14.0-18.0); Mean Corpuscular Hemoglobin 31.8 pg (27.0-31.0); Mean Corpuscular Volume 90.8 fL (78.0-98.0); Mean Platelet Volume 6.9 fL (7.4-10.4); Platelet Count 232 thou/uL (130-400); RBC Distribution Width 12.3 % (11.5-14.5); Red Blood Cell (RBC) Count 4.15 mill/uL (4.70-6.10); White Blood Cell (WBC) Count 14.6 thou/uL (4.8-10.8)
[2020-04-28 21:20] LABS: Bilirubin Negative (Negative); Blood, Urine Trace (Negative); Clarity Clear (Clear); Glucose, Urine (Dipstick) Normal (Negative); Ketone, Urine Negative (Negative); Leukocyte 500 Leu/uL (Negative); Nitrite 1+ (Negative); Protein, Urine (Dipstick) 10 mg/dL (Neg-Trace); RBC/HPF 0-3 HPF (0-3); Specific Gravity, Urine 1.004 (1.002-1.036); Squamous Epithelial None Seen HPF (0-3); Urobilinogen Normal mg/dL (Less than 2); WBC/HPF 0-3 HPF (0-3); pH, Urine 7.5 (5.0-9.0)
[2020-04-28 21:21] LABS: Bacteria/HPF 2+ HPF (None Seen)
--- NOTE | 2020-04-28 21:24 | RAD ---
EXAM: CHEST ONE VIEW PORTABLE: 04/28/20 HISTORY: Malaise, fever, prior urosepsis. COMPARISON: 04/27/20. FINDINGS: Heart size is within normal limits. The lungs are clear. IMPRESSION: No acute intrathoracic disease. Stable from prior study. POS: RRE
[2020-04-28 21:30] LABS: ALT (SGPT) 20 U/L (8-55); AST (SGOT) 17 U/L (5-34); Albumin 4.2 g/dL (3.5-5.0); Alkaline Phosphatase 96 U/L (40-110); Anion Gap 15 mmol/L (10-20); BUN (Urea Nitrogen) 16 mg/dL (8.4-25.7); Bilirubin, Total 0.4 mg/dL (0.2-1.2); Calc. Creatinine Clearance 0 mL/min (70-130); Calcium 9.4 mg/dL (7.8-10.44); Carbon Dioxide 24 mmol/L (22-29); Chloride 92 mmol/L (98-107); Estimated GFR-MDRD 51; Globulin 3.2 g/dL (2.4-3.5); Glucose 119 mg/dL (70-105); Potassium 4.1 mmol/L (3.5-5.1); Protein, Total 7.4 g/dL (6.0-8.3); Sodium 127 mmol/L (136-145)
[2020-04-28] MEDS ORDERED: Cefepime 2 GM VIAL ONE (22:38)
[2020-04-29] MEDS ORDERED: Acetaminophen 650 MG Suppository PR PRN (02:25)
[2020-04-29] MEDS ORDERED: Acetaminophen 325 MG TAB PO PRN (02:25)
[2020-04-29] MEDS ORDERED: Ondansetron ODT 4 MG TAB PO PRN (02:25)
[2020-04-29] MEDS ORDERED: Ondansetron PF 4 MG/2 ML Vial IVP PRN (02:25)
[2020-04-29] MEDS ORDERED: Calcium Carbonate 500 MG ChewTAB PO PRN (02:25)
--- NOTE | 2020-04-29 02:29 | PDOC.HHP ---
Hospitalist History - Past Medical History Heme/Onc: reports: Anemia NOS Psych: reports: Bipolar, Depression Musculoskeletal: reports: Osteoarthritis Renal/: reports: Chronic renal insuff (CKD stage III), UTI (Frequent UTIs secondary to suprapubic catheter), Benign prostatic enlarg. (History of BPH with urinary retention status post suprapubic catheter), Other (Vesicoureteral reflux, chronic right-sided hydronephrosis. Chronic hyponatremia) Endocrine: reports: Diabetes (Type 2 diabetes mellitus), Hypothyroidism - Past Surgical History Past Surgical History: reports: Other (Vesicoureteral reflux related surgeries when he was a kid. History of suprapubic catheter since 2018) - Social History Alcohol: reports: Occassional (Drinks about 3-4 beers daily) Drugs: reports: none Hospitalist Results - Labs Result Diagrams: 04/28/20 20:59 04/28/20 20:59 Lab results: WBC 14.6 thou/uL (4.8-10.8) H 04/28/20 20:59 Hgb 13.2 g/dL (14.0-18.0) L 04/28/20 20:59 Hct 37.6 % (42.0-52.0) L 04/28/20 20:59 MCV 90.8 fL (78.0-98.0) 04/28/20 20:59 Plt Count 232 thou/uL (130-400) 04/28/20 20:59 Neutrophils % 75.4 % (42.0-75.0) H 04/28/20 20:59 Sodium 127 mmol/L (136-145) L 04/28/20 20:59 Potassium 4.1 mmol/L (3.5-5.1) 04/28/20 20:59 Chloride 92 mmol/L (98-107) L 04/28/20 20:59 Carbon Dioxide 24 mmol/L (22-29) 04/28/20 20:59 BUN 16 mg/dL (8.4-25.7) 04/28/20 20:59 Creatinine 1.41 mg/dL (0.7-1.3) H 04/28/20 20:59 Glucose 119 mg/dL (70-105) H 04/28/20 20:59 Lactic Acid 1.0 mmol/L (0.5-2.2) 04/28/20 20:59 Calcium 9.4 mg/dL (7.8-10.44) 04/28/20 20:59 Total Bilirubin 0.4 mg/dL (0.2-1.2) 04/28/20 20:59 AST 17 U/L (5-34) 04/28/20 20:59 ALT 20 U/L (8-55) 04/28/20 20:59 Alkaline Phosphatase 96 U/L (40-110) 04/28/20 20:59 Serum Total Protein 7.4 g/dL (6.0-8.3) 04/28/20 20:59 Albumin 4.2 g/dL (3.5-5.0) 04/28/20 20:59 Urine Ketones Negative mg/dL (Negative) 04/28/20 20: Urine Blood Trace (Negative) A 04/28/20 20:55 Urine Nitrite 1+ (Negative) A 04/28/20 20:55 Ur Leukocyte Esterase 500 Abbe/uL (Negative) A 04/28/20 20:55 Urine RBC 0-3 HPF (0-3) 04/28/20 20:55 Urine WBC 0-3 HPF (0-3) 04/28/20 20:55 Ur Squamous Epith Cells None Seen HPF (0-3) 04/28/20 20:55 Urine Bacteria 2+ HPF (None Seen) A 04/28/20 20:55
[2020-04-29] MEDS: Sodium Chloride 0.9% 1,000 ML IV SCH ×2 (03:04→22:46)
--- NOTE | 2020-04-29 04:26 | PDOC.HHP ---
Hospitalist HPI - History of Present Illness History of Present Illness: ADMISSION DATE: 04/29/2020 TIME OF ASSESSMENT: 0300 PRIMARY CARE PHYSICIAN: [place] marie, Dr. Garnett CHIEF COMPLAINT: Generalized weakness and chills HPI: This is a 60-year-old gentleman who has a history of frequent suprapubic catheter related UTIs for which he last received treatment 1 month ago and has had multiple admissions in the last couple of months. States he has had generalized weakness and chills for the last several days and had been vomiting up until 3 days ago. Denies having any loose stools. No abdominal discomfort. Due to feeling generally unwell he opted to come into the emergency department a s he suspected a recurrent UTI. Denies having any fevers, cough or hemoptysis. No chest pain palpitations or shortness of breath. Has not noted any hematuria. Reports good urine output. No suprapubic discomfort or flank pain. All other review of systems are negative. He has longstanding history of neurogenic bladder with enlarged prostate and status post suprapubic catheter since 2018. He is followed by his urologist Dr. Painter and sees his electrical and radio mock up mechanic Dr. Nice. He takes care of his catheter at home on his own. During his multiple admissions in the past, his urine culture grows variation of bacteria including E. coli, enterococcus, seudomonas, Acinetobacter and sometimes even Silvia fungi. During his last admission, he had Pseudomonas growth. Previous blood cultures in the record were negative. States during 1st admission in March he received Cefepime and then was re-admi tted 2 weeks after discharge for persistent UTI. Urinalysis done on 04/26/2020 which was cultured showed small blood, small leukocyte esterase, 21-50 white blood cells and 2+ bacteria. ED COURSE: In the emergency department the patient underwent a chest x-ray that was unremarkable. Laboratory studies done showing a white count of 14.6, hemoglobin 13.2, hematocrit 37.6, platelets 232, neutrophils 75.4%. Sodium 127, creatinine 1.41, GFR 51, glucose 119, lactic acid 1, LFTs unremarkable, troponin negative. BNP 24.1. Urinalysis done showed trace blood, trace leukocyte esterase, red blood cells 4- 6, 1+ bacteria. Repeat UA showed trace blood, +1 nitrate, 500 leukocyte esterase, 2+ bacteria. Patient started on IV antibiotics with cefepime. He was given 4 mg of Zofran for nausea. States he was nauseated due to not eating. He also received 4 mg of IV morphine. Admission requested for management of hyponatremia and UTI. PAST MEDICAL HISTORY: Diastolic HF Hypertension Hyperlipidemia Diabetes, type 2 COPD Anemia Depression Bipolar Osteoarthritis CKD, stage 3 Frequent suprapubuc cath related UTIs. BPH Chronic right sided hydronephrosis Chronic hyponatremia PAST SURGICAL HISTORY: Vesicoureteral reflux related surgeries when he was a kid. History of suprapubic catheter since 2018 Left knee surgery SOCIAL HISTORY: Previously drank 3-4 beers a day but quit a month ago. No to bacco use. No drug use. Lives alone. Uses a walker and wheelchair with limited activity. FAMILY HISTORY: Noncontributory ALLERGIES: Cipro Navane Nortriptyline Pamelor Thiothixene Tuberculin CURRENT MEDICATIONS: 1. Docusate sodium 250 mg p.o. twice daily 2. Benztropine 1 mg p.o. twice daily 3. To follow-up Protonix 500 mg p.o. daily 4. Pravastatin 40 mg p.o. at bedtime 5. Finasteride 5 mg p.o. daily 6. Glipizide 5 mg p.o. twice daily 7. Donepezil 10 mg p.o. at bedtime 8. Aspirin 81 mg p.o. daily 9. Levothyroxine 25 mcg p.o. daily 10. Trazodone 100 mg p.o. daily at bedtime 11. Risperdal 3 mg p.o. twice daily 12. Duo nebs twice daily 13. Levaquin 750 mg p.o. daily 14. Amlodipine 10 mg p.o. daily Hospitalist ROS - Medication Medications: Active Medications Generic Name Dose Route Start Last Admin Trade Name Freq PRN Reason Stop Dose Admin Sodium Chloride 1,000 mls @ 50 mls/hr 04/29/20 02:45 04/29/20 03:04 Normal Saline 0.9% IV 1,000 mls .Q20H ALEIDA Administration Hospitalist History - Past Medical History Heme/Onc: reports: Anemia NOS Psych: reports: Bipolar, Depression Musculoskeletal: reports: Osteoarthritis Renal/: reports: Chronic renal insuff (CKD stage III), UTI (Frequent UTIs secondary to suprapubic catheter), Benign prostatic enlarg. (History of BPH with urinary retention status post suprapubic catheter), Other (Vesicoureteral reflux, chronic right-sided hydronephrosis. Chronic hyponatremia) Endocrine: reports: Diabetes (Type 2 diabetes mellitus), Hypothyroidism - Past Surgical History Past Surgical History: reports: Other (Vesicoureteral reflux related surgeries when he was a kid. History of suprapubic catheter since 2018) - Social History Alcohol: reports: Occassional (Drinks about 3-4 beers daily) Drugs: reports: none Hospitalist Results - Labs Result Diagrams: 04/28/20 20:59 04/28/20 20:59 Lab results: WBC 14.6 thou/uL (4.8-10.8) H 04/28/20 20:59 Hgb 13.2 g/dL (14.0-18.0) L 04/28/20 20:59 Hct 37.6 % (42.0-52.0) L 04/28/20 20:59 MCV 90.8 fL (78.0-98.0) 04/28/20 20:59 Plt Count 232 thou/uL (130-400) 04/28/20 20:59 Neutrophils % 75.4 % (42.0-75.0) H 04/28/20 20:59 Sodium 127 mmol/L (136-145) L 04/28/20 20:59 Potassium 4.1 mmol/L (3.5-5.1) 04/28/20 20:59 Chloride 92 mmol/L (98-107) L 04/28/20 20:59 Carbon Dioxide 24 mmol/L (22-29) 04/28/20 20:59 BUN 16 mg/dL (8.4-25.7) 04/28/20 20:59 Creatinine 1.41 mg/dL (0.7-1.3) H 04/28/20 20:59 Glucose 119 mg/dL (70-105) H 04/28/20 20:59 Lactic Acid 1.0 mmol/L (0.5-2.2) 04/28/20 20:59 Calcium 9.4 mg/dL (7.8-10.44) 04/28/20 20:59 Total Bilirubin 0.4 mg/dL (0.2-1.2) 04/28/20 20:59 AST 17 U/L (5-34) 04/28/20 20:59 ALT 20 U/L (8-55) 04/28/20 20:59 Alkaline Phosphatase 96 U/L (40-110) 04/28/20 20:59 Serum Total Protein 7.4 g/dL (6.0-8.3) 04/28/20 20:59 Albumin 4.2 g/dL (3.5-5.0) 04/28/20 20: Urine Ketones Negative mg/dL (Negative) 04/28/20 20: Urine Blood Trace (Negative) A 04/28/20 20: Urine Nitrite 1+ (Negative) A 04/28/20: Ur Leukocyte Esterase 500 Abbe/uL (Negative) A 04/28/20: Urine RBC 0-3 HPF (0-3) 04/28/20 20: Urine WBC 0-3 HPF (0-3) 04/28/20 20:55 Ur Squamous Epith Cells None Seen HPF (0-3) 04/28/20 20: Urine Bacteria 2+ HPF (None Seen) A 04/28/20 20:55 Hospitalist H&P A/P - Plan Plan: Admit to hospitalist, admit under observation, vitals monitoring Suspected recurrent suprapubic catheter related UTI: He has leukocytosis but has nemesio febrile with normal lactic acid. Reports weakness which could be associated with hyponatremia and recent vomiting rather than recurrent UTI. Long standing catheter with possible UTI episodes vs. colonization. Vital signs are normal. No signs or symptoms of pyelonephritis. Will check CRP and procalcitonin. Repeat CBC in AM. Consult placed to Dr. Sparks, of Infectious Disease. Has received Cefepime in ED based on most recent culture showing Pseudomonas. Further antibiotics as per ID recommendations, appreciate input. Recent urine culture done 04/26/2020. Hyponatremia: Repeat BMP with AM labs and again after 6 hours. Appreciate nephrology input. Will check urine Na+, osmolality, serum osmolality. Chronic diastolic heart failure: No signs of fluid overload. Takes Lasix 40 mg and has no lower extremity swelling. Gentle hydration, receiving NS at 50 mLs/hr given hyponatremia felt to be associated with volume depletion due to recent vomiting episodes earlier this week. CKD stage III: Stable. IV fluids tonight and cut back on Lasix dose as mentioned above. BMP in the morning Type 2 DM: Accu-checks ACHS, and sliding scale coverage Resume home meds as appropriate once verified. Hypertension: Monitor BP and resume home medications once verified. Hyperlipidemia: Continue statin. BPH with history of neurogenic bladder status post suprapubic catheter: Continue finasteride. Patient has a chronic indwelling suprapubic catheter. He gets his care at the [facility]. Depression, bipolar, schizoaffective disorder: Continue Risperdal, fluoxetine, trazodone. Degenerative joint disease: Continue Tylenol as needed COPD: Resume inhalers and duonebs BID Hypothyroidism: Continue levothyroxine DVT Prophylaxis: Mechanical SCDs. Lovenox ordered, patient considering refusing pharmacoprophylaxis. PUD Prophylaxis: Famotidine. CODE STATUS: FULL Case discussed with Dr. Obregon who agrees with plan as above.
[2020-04-29] MEDS ORDERED: Dextrose 5% in Water 1,000 ML IV PRN (05:11)
[2020-04-29] MEDS ORDERED: Dextrose 50% Abboject 50 ML SYRINGE SLOW IVP PRN (05:11)
[2020-04-29] MEDS ORDERED: HumaLOG 300 UNITS/3 ML VIAL SC PRN ×2 (05:11)
[2020-04-29] MEDS: Levothyroxine Sodium 25 MCG TAB PO SCH (05:51)
[2020-04-29 07:08] LABS: SARS-CoV-2 MS2 Positive; SARS-CoV-2 N Gene Negative; SARS-CoV-2 S Gene Negative; SARS-CoV-2 by NAA Not Detected (NotDetected); SARS-CoV-2 orf1ab Negative
[2020-04-29 07:13] LABS: ALT (SGPT) 16 U/L (8-55); AST (SGOT) 15 U/L (5-34); Albumin 3.6 g/dL (3.5-5.0); Alkaline Phosphatase 85 U/L (40-110); Anion Gap 13 mmol/L (10-20); BUN (Urea Nitrogen) 13 mg/dL (8.4-25.7); Bilirubin, Total 0.4 mg/dL (0.2-1.2); Calc. Creatinine Clearance 105 mL/min (70-130); Calcium 8.5 mg/dL (7.8-10.44); Carbon Dioxide 24 mmol/L (22-29); Chloride 98 mmol/L (98-107); Estimated GFR-MDRD 54; Globulin 2.9 g/dL (2.4-3.5); Glucose 163 mg/dL (70-105); Potassium 4.1 mmol/L (3.5-5.1); Protein, Total 6.5 g/dL (6.0-8.3); Sodium 131 mmol/L (136-145)
[2020-04-29] MEDS: Mometasone 200 MCG/Formoterol 5 MCG 120 PUFF INHALER INH SCH ×2 (08:13→18:51)
[2020-04-29 08:20] LABS: Band 3 % (5-11); Eosinophils 4 % (0-10); Hemoglobin 12.5 g/dL (14.0-18.0); Lymphocytes 22 % (21-51); MDiff Complete? YES; Mean Corpuscular HGB CONC 34.7 g/dL (32.0-36.0); Mean Corpuscular Hemoglobin 31.8 pg (27.0-31.0); Mean Corpuscular Volume 91.6 fL (78.0-98.0); Mean Platelet Volume 7.1 fL (7.4-10.4); Monocytes 11 % (0-10); Neutrophil 60 % (42-75); Platelet Count 188 thou/uL (130-400); RBC Distribution Width 12.5 % (11.5-14.5); Red Blood Cell (RBC) Count 3.95 mill/uL (4.70-6.10); White Blood Cell (WBC) Count 10.7 thou/uL (4.8-10.8)
[2020-04-29] MEDS: Cefepime 1 GM in Sodium Chloride 0.9% 100 ML IVPB SCH ×2 (08:51→21:20)
[2020-04-29] MEDS: Multivitamin W/ Minerals 1 TAB PO SCH (08:52)
[2020-04-29] MEDS: Lisinopril 2.5 MG TAB PO SCH (08:52)
[2020-04-29] MEDS: Finasteride 5 MG TAB PO SCH (08:52)
[2020-04-29] MEDS: Benztropine 1 MG TAB PO SCH (08:53)
[2020-04-29] MEDS: Divalproex Sodium 250 MG (DR) TAB PO SCH ×2 (08:53→21:20)
[2020-04-29] MEDS: Aspirin 81 mg Enteric Coated Tablet PO SCH (08:53)
[2020-04-29] MEDS: Enoxaparin Sodium 40 MG/0.4 ML SYRINGE SC SCH (08:54)
[2020-04-29] MEDS: HYDROcodone/Acetaminophen 5/325 mg Tablet PO PRN ×2 (08:54→15:23)
[2020-04-29] MEDS: Senokot S 8.6-50 MG TAB PO SCH ×2 (08:58→21:19)
[2020-04-29] MEDS ORDERED: Mometasone 200 MCG/Formoterol 5 MCG 120 PUFF INHALER INH SCH (09:00)
[2020-04-29] MEDS ORDERED: Iopamidol-370 76% 500 ML 1 ML ONE (09:52)
--- NOTE | 2020-04-29 15:07 | CON ---
DATE OF CONSULTATION: 04/29/2020 CONSULTING PHYSICIAN: Joan Lara PA-C. REASON FOR CONSULTATION: Acute kidney injury, hyponatremia. REASON FOR ADMISSION: Weakness. HISTORY OF PRESENT ILLNESS: A 60-year-old male with history of chronic kidney disease, frequent UTIs, suprapubic catheter, came to the hospital with chills. He was recently on antibiotics and after stopping antibiotics, he started having symptoms. He thought it is from UTI and showed to the hospital. He follows with urologist, Dr. Monik michele and Dr. Sparks. No fever or chills. No nausea or vomiting. He is feeling slightly better. PAST MEDICAL HISTORY: Positive for; 1. CHF. 2. Hypertension. 3. Hyperlipidemia. 4. Type-2 diabetes. 5. COPD. 6. Frequent UTIs. 7. CKD. 8. BPH. 9. Hyponatremia. PAST SURGICAL HISTORY: Vesicoureteral reflux, suprapubic catheter and left knee surgery. HOME MEDICATION: Reviewed. ALLERGIES: CIPROFLOXACIN, TUBERCULIN TEST, NORTRIPTYLINE. FAMILY HISTORY: No history of kidney disease. REVIEW OF SYSTEMS: CONSTITUTIONAL: Negative for weight loss or gain, ability to conduct usual activities. SKIN: Negative for rash, itching. EYES: Negative for double vision, pain. ENT/MOUTH: Negative for nose bleeding, neck stiffness, pain, tenderness. CARDIOVASCULAR: Negative for palpitations, dyspnea on exertion, orthopnea. RESPIRATORY: Negative for shortness of breath, wheezing, cough, hemoptysis, fever or night sweats. GASTROINTESTINAL: Negative for poor appetite, abdominal pain, heartburn, nausea, vomiting, constipation, or diarrhea. GENITOURINARY: Negative for urgency, frequency, dysuria, nocturia. MUSCULOSKELETAL: Negative for pain, swelling. NEUROLOGIC/PSYCHIATRIC: Negative for anxiety, depression. ALLERGY/IMMUNOLOGIC: Negative for skin rash, bleeding tendency. PHYSICAL EXAMINATION: GENERAL: This is a well-built male, in no apparent distress. VITAL SIGNS: Temperature 97.8, pulse 59, respirations 20, blood pressure 131/66. HEENT: Atraumatic, normocephalic. Oral mucosa moist. NECK: Supple. CV: S1, S2. Rate and rhythm regular. RESPIRATORY: Clear. GI: Abdomen is soft. MUSCULOSKELETAL: No tenderness. No edema. DERMATOLOGIC: No skin rash. NEUROLOGIC: Alert and awake. PSYCHIATRIC: Normal mood and affect. LABORATORY DATA: Potassium 4.1, sodium 131, BUN is 13, creatinine is 1.36. ASSESSMENT AND PLAN: 1. Acute kidney injury on chronic kidney disease stage 3, stable. 2. Hyponatremia. 3. Edema, controlled. 4. History of hypertension. 5. Anemia of chronic disease. 6. Frequent UTIs. Recommend to follow up with Infectious Disease and Urology if needed. We will monitor renal function. Follow ID recommendations. Thank you for the consult. Job ID: [id number]
--- NOTE | 2020-04-29 16:55 | CON ---
DATE OF CONSULTATION: 04/29/2020 HISTORY OF PRESENT ILLNESS: A 60-year-old gentleman whom I recently saw in mid February when he presented with a history of type 2 diabetes, schizophrenia, obesity, neurogenic bladder, and prior CVA with suprapubic catheter for the past 2 years. He developed right flank pain and is given IV antimicrobial therapy. When we saw him, the comments were centered around the difficulty in establishing the presence of an invasive urinary tract infection patients with indwelling catheters and the fact that other features need to be evaluated in addition to the urinalysis and culture since those are always abnormal in patients with indwelling catheters. So, he did have some element of flank pain and we felt it was worthwhile to continue treatment. The organism was Pseudomonas aeruginosa and was fairly sensitive organism. I saw the patient in followup in the clinic just a few days ago and he was having some suprapubic discomfort and some burning sensation there. Then, on the day of readmission yesterday, he noticed gross hematuria and clots passing through the catheter. He also noticed some fluid coming around the suprapubic catheter suggesting possible obstruction. The last time the suprapubic catheter was replaced was the beginning of March. He did not have a thermometer. He felt some chills. He does not have much in terms of flank pain which he used to have before. No headaches. No respiratory symptoms. No vomiting. No diarrhea or constipation. He has some element of paraparesis. He has mobility impairment. PAST MEDICAL HISTORY: Includes bipolar disorder, schizophrenia, type 2 diabetes, neurogenic bladder, suprapubic catheter, CKD stage 3, COPD, diastolic CHF, hypertension. PAST SURGICAL HISTORY: Suprapubic catheter placement, knee surgery left side, and had a cystoscopy in [address] Ruggiero. 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 Never smoked. Drinks occasionally. FAMILY HISTORY: Colon cancer. CURRENT MEDICATIONS: Include: . 2. DuoNeb. 3. Norvasc. 4. Lipitor. 5. Cogentin. 6. Tums. 7. Cefepime. 8. Valproic acid. 9. Lovenox. 10. Proscar. 11. Insulin. 12. [place]. 13. Synthroid. 14. Lisinopril. 15. Dulera. 16. Zofran. 17. Senokot. 18. Trazodone. PHYSICAL EXAMINATION: VITAL SIGNS: The patient after admission has remained afebrile, blood pressure 140/86, heart rate 55, respiratory rate 18, and O2 saturation 96. SKIN: Shows the suprapubic catheter exit site which appears normal. There is tenderness around the site though. Peripheral IV access. HEENT: His ocular movements are conjugate. He appears in no distress. Oral cavity with a few missing teeth. Oral mucosa is normal. NECK: Supple. LUNGS: Symmetric, clear breath sounds. HEART: S1 and S2, regular rate without murmurs. ABDOMEN: Without flank pain, but there is suprapubic pain. No tenderness. EXTREMITIES: The patient has left hemiparesis and weakness in lower extremities. He is able to move the feet, but cannot bear weight. Plantar responses are extensor on the left side. No clonus. No edema. NEUROLOGIC: He is awake, oriented, follows commands. Recollection is fairly decent. Speech is normal. LABORATORY DATA: On arrival, white cell count 14.6, hemoglobin 13, platelets 232 with 75% neutrophils. Creatinine 1.36. Liver profile normal. Albumin 4.2. Urinalysis with only 0 to 3 wbc's, 500 leukocyte esterase. SARS-CoV was not detected. The last imaging studies; there is an abdomen and pelvis CT from March 03, the last admission, which showed mild dilatation of right bilateral renal pelvis, suprapubic Qu[place] catheter. ASSESSMENT: Prior CVA, type 2 diabetes, bipolar disorder, BPH with obstructive findings in the bladder outflow tract as well as neurogenic bladder, requiring suprapubic catheter placement for 2 years now and this is the second admission for the same symptoms except for the absence of flank pain at this time. He did have neutrophilia though. I am not clear if the neutrophilia true invasive urinary tract infection or if this is from the symptoms of pain that he is experiencing. He did have clots passing, which may have obstructed the catheter. He did have some urine coming out of the space between the catheter and the skin, so suggestive of obstruction, so maybe that is what is happening and he just needs the catheter exchanged. We will have Dr. Ruggiero take a look at him and see what he thinks, needs to be done, if he needs another cystoscopy or just replacement of suprapubic catheter. Cultures thus far not yielding any growth or maybe very mild growth. I do not think that this is a true invasive infection, and we will go ahead and repeat the imaging study of the abdomen and pelvis with contrast. Job ID: [id number] MTDD
--- NOTE | 2020-04-29 16:58 | PDOC.HOSPP ---
- Subjective Encounter Date: 04/29/20 Encounter Time: 16:57 Subjective: Mr. Gaines was seen today in follow-up of UTI with indwelling supra-pubic catheter. He notes some lower abdominal soreness, around the catheter site. No other complaints. - Objective Vital Signs & Weight: Vital Signs (12 hours) Temp Pulse Resp BP BP Pulse Ox 04/29/20 15:58 98.0 F 55 L 18 143/86 H 96 04/29/20 11:15 97.8 F 59 L 20 131/66 97 04/29/20 08:52 54 L 115/74 04/29/20 08:14 54 L 18 94 L 04/29/20 07:29 97.5 F L 54 L 18 115/74 96 Weight Weight 280 lb 3.2 oz I&O: 04/28/20 04/29/20 04/30/20 06:59 06:59 06:59 Intake Total 1500 Output Total 2800 1275 Balance -1300 -1275 Result Diagrams: 04/29/20 06:20 04/29/20 06:20 Additional Labs: Accuchecks 04/29/20 04/29/20 04/29/20 15:58 11:15 05:07 POC Glucose 116 H 134 H 185 H 04/29/20 00:42 POC Glucose 140 H Hospitalist ROS - Medication Medications: Active Medications Generic Name Dose Route Start Last Admin Trade Name Freq PRN Reason Stop Dose Admin Hydrocodone Bitart/Acetaminophen 1 tab 04/29/20 02:25 04/29/20 15:23 Hydrocodone/Acetaminophen 5/325 Mg Tablet PO 1 tab Q4H PRN Administration Moderate Pain (4-6) Albuterol/Ipratropium 3 ml 04/29/20 09:00 04/29/20 08:14 Ipratropium/Albuterol Sulfate 3 Ml Neb NEB 3 ml BID ALEIDA Administration Aspirin 81 mg 04/29/20 09:00 04/29/20 08:53 Aspirin 81 Mg Enteric Coated Tablet PO 81 mg DAILY ALEIDA Administration Benztropine Mesylate 1 mg 04/29/20 09:00 04/29/20 08:53 Benztropine 1 Mg Tab PO 1 mg DAILY ALEIDA Administration Divalproex Sodium 250 mg 04/29/20 09:00 04/29/20 08:53 Divalproex Sodium 250 Mg (Dr) Tab PO 250 mg BID ALEIDA Administration Enoxaparin Sodium 40 mg 04/29/20 09:00 04/29/20 08:54 Enoxaparin Sodium 40 Mg/0.4 Ml Syringe SC 40 mg 0900 ALEIDA Administration Finasteride 5 mg 04/29/20 09:00 04/29/20 08:52 Finasteride 5 Mg Tab PO 5 mg DAILY ALEIDA Administration Sodium Chloride 1,000 mls @ 50 mls/hr 04/29/20 02:45 04/29/20 03:04 Normal Saline 0.9% IV 1,000 mls .Q20H ALEIDA Administration Cefepime HCl 1 gm/ Sodium 100 mls @ 200 mls/hr 04/29/20 09:00 04/29/20 08:51 Chloride IVPB 100 mls Q12HR ALEIDA Administration Iron/Minerals/Multivitamins 1 tab 04/29/20 09:00 04/29/20 08:52 Multivitamin W/ Minerals 1 Tab PO 1 tab DAILY ALEIDA Administration Levothyroxine Sodium 25 mcg 04/29/20 06:00 04/29/20 05:51 Levothyroxine Sodium 25 Mcg Tab PO 25 mcg 0600 ALEIDA Administration Lisinopril 2.5 mg 04/29/20 09:00 04/29/20 08:52 Lisinopril 2.5 Mg Tab PO 2.5 mg DAILY ALEIDA Administration Mometasone Furoate/Formoterol Fumar 2 puff 04/29/20 06:30 04/29/20 08:13 Mometasone 200 Mcg/Formoterol 5 Mcg 120 Puff Inhaler INH 2 puff BID-RT ALEIDA Administration Pantoprazole Sodium 40 mg 04/29/20 09:00 04/29/20 08:52 Pantoprazole 40 Mg Tab PO Not Given DAILY ALEIDA Potassium Chloride 20 meq 04/29/20 09:00 04/29/20 08:53 Potassium Chloride 20 Meq Packet PO 20 meq DAILY ALEIDA Administration Senna/Docusate Sodium 1 tab 04/29/20 09:00 04/29/20 08:58 Senokot S 8.6-50 Mg Tab PO Not Given BID ALEIDA - Exam Eye: PERRL, anicteric sclera Heart: RRR, no murmur, no gallops, no rubs, normal peripheral pulses Respiratory: CTAB, no wheezes, no rales, no ronchi, normal chest expansion, no tachypnea, normal percussion Gastrointestinal: soft, non-tender, non-distended, normal bowel sounds, no palpable masses, no hepatomegaly Extremities: no cyanosis, no edema Hosp A/P (1) Complicated UTI (urinary tract infection) Code(s): N39.0 - URINARY TRACT INFECTION, SITE NOT SPECIFIED Status: Acute (2) BPH (benign prostatic hyperplasia) Code(s): N40.0 - BENIGN PROSTATIC HYPERPLASIA WITHOUT LOWER URINRY TRACT SYMP Status: Chronic (3) Bipolar disorder Code(s): F31.9 - BIPOLAR DISORDER, UNSPECIFIED Status: Chronic (4) Diabetes type 2, controlled Code(s): E11.9 - TYPE 2 DIABETES MELLITUS WITHOUT COMPLICATIONS Status: Chronic Qualifiers: Diabetes mellitus longterm insulin use: without oysterman use (5) Hypertension Code(s): I10 - ESSENTIAL (PRIMARY) HYPERTENSION Status: Chronic Qualifiers: (6) Neurogenic bladder Code(s): N31.9 - NEUROMUSCULAR DYSFUNCTION OF BLADDER, UNSPECIFIED Status: Chronic - Plan * Complicated UTI due to Suprapubic catheter- Urine culture on the is growing Pseudomonas , which was jo- sensitive * Will continue Cefepime, and await the current culture results * DM- blood glucose is stable- will re-start his home medications, and continue with SSI * HTN- blood pressure is stable * Bipolar disorder- continue his home medications
--- NOTE | 2020-04-29 17:04 | CT ---
CT abdomen and pelvis: 04/29/2020 COMPARISON: 06/21/2017 HISTORY: Recurrent suprapubic pain TECHNIQUE: Axial CT imaging at 5 mm intervals from the lung bases through the pubic symphysis with IV contrast. Coronal and sagittal reformatted imaging obtained. FINDINGS: The visualized lung bases unremarkable. No free intraperitoneal air or fluid. There is a calcification in the region of the gallbladder neck on image 36 suggesting stable cholelit hiasis. The liver, spleen, pancreas, and adrenal glands demonstrate no acute findings. A stable small fat-containing lesion is seen emanating from the lateral aspect of the left adrenal gland consi stent with a myelolipoma. There is severe atrophy with multifocal cortical thinning involving the left kidney. There is an extr arenal pelvis on the right. There is a suprapubic catheter in place in the region of the dome of the bladder. There is mild wall thickening of the urinary bladder which is partially decompressed. Limited assessment of the bowel without oral contrast media demonstrates no evidence for bowel inflam matory change or obstruction. The appendix appears unremarkable. The vascular structures of the abdomen and pelvis appear patent. No lymphadenopathy is present within the abdomen/pelvis. No acute osseous abnormality is noted. There is multilevel lower lumbar spine facet hypertrophy. Bilateral L5 pars defects are present with mild anterolisthesis at L5-S1. IMPRESSION: Numerous chronic findings as described above. No acute abnormality appreciated.
[2020-04-29] MEDS ORDERED: FLUoxetine HCl 20 MG CAP PO SCH (18:45)
[2020-04-29] MEDS ORDERED: risperiDONE 3 MG TAB PO SCH (21:00)
[2020-04-29] MEDS ORDERED: Atorvastatin Calcium 10 MG TAB PO SCH (21:00)
[2020-04-29] MEDS: Atorvastatin Calcium 10 MG TAB PO SCH (21:19)
[2020-04-29] MEDS: Amlodipine 5 MG TAB PO SCH (21:19)
[2020-04-29] MEDS: Donepezil HCl 10 MG TAB PO SCH (21:20)
[2020-04-29] MEDS: traZODone HCl 50 MG TAB PO SCH (21:20)
[2020-04-29] MEDS: risperiDONE 1 MG TAB PO SCH (21:21)
[2020-04-30] MEDS: Sodium Chloride 0.9% 1,000 ML IV SCH ×2 (02:14→23:04)
[2020-04-30] MEDS: Levothyroxine Sodium 25 MCG TAB PO SCH (05:58)
[2020-04-30 06:02] VITALS: BMI 40.8
[2020-04-30] MEDS: Mometasone 200 MCG/Formoterol 5 MCG 120 PUFF INHALER INH SCH ×2 (06:09→19:42)
[2020-04-30 06:47] LABS: Anion Gap 12 mmol/L (10-20); BUN (Urea Nitrogen) 13 mg/dL (8.4-25.7); Calc. Creatinine Clearance 102 mL/min (70-130); Calcium 8.7 mg/dL (7.8-10.44); Carbon Dioxide 27 mmol/L (22-29); Chloride 100 mmol/L (98-107); Estimated GFR-MDRD 53; Glucose 126 mg/dL (70-105); Potassium 4.3 mmol/L (3.5-5.1); Sodium 135 mmol/L (136-145)
[2020-04-30] MEDS: Cefepime 1 GM in Sodium Chloride 0.9% 100 ML IVPB SCH ×2 (08:06→20:43)
[2020-04-30] MEDS: Benztropine 1 MG TAB PO SCH (08:06)
[2020-04-30] MEDS: Aspirin 81 mg Enteric Coated Tablet PO SCH (08:06)
[2020-04-30] MEDS: Enoxaparin Sodium 40 MG/0.4 ML SYRINGE SC SCH (08:08)
[2020-04-30] MEDS: Divalproex Sodium 250 MG (DR) TAB PO SCH ×2 (08:08→20:44)
[2020-04-30] MEDS: Finasteride 5 MG TAB PO SCH (08:09)
[2020-04-30] MEDS: Multivitamin W/ Minerals 1 TAB PO SCH (08:09)
[2020-04-30] MEDS: Lisinopril 2.5 MG TAB PO SCH (08:09)
[2020-04-30] MEDS: Senokot S 8.6-50 MG TAB PO SCH ×2 (08:10→20:44)
[2020-04-30] MEDS: HYDROcodone/Acetaminophen 5/325 mg Tablet PO PRN ×2 (08:29→19:11)
[2020-04-30] MEDS: FLUoxetine HCl 20 MG CAP PO SCH (10:13)
--- NOTE | 2020-04-30 11:18 | PRG ---
DATE OF SERVICE: 04/30/2020 SUBJECTIVE: Patient was seen and examined at bedside and overnight events noted. Patient denies any shortness of breath or chest pain or palpitation. No history of nausea or vomiting or diarrhea or fever or chills or cramps. OBJECTIVE: General: This is a well-built male, in no apparent distress. Vital Signs: Temperature 97.5. Heart Rate 60. Respiratory rate 16. Blood pressure 129/83. HEENT: Atraumatic, normocephalic. Oral mucosa is moist. Neck: Supple. Cardiovascular: S1, S2 heard. Rate and rhythm regular. Respiratory: Clear to auscultation. Gastrointestinal: Abdomen is soft. Musculoskeletal: No tenderness. No edema. Dermatologic: No skin rash. Neurologic: Alert and awake and oriented x3. No focal neurologic deficits. Moving all the extremities. Psychiatric: Mood and affect normal. LABORATORY DATA: Potassium 4.3, BUN is 13, creatinine is 1.3. ASSESSMENT AND PLAN: 1. Acute kidney injury on chronic kidney disease stage 3, stable. 2. Hyponatremia. 3. Urinary tract infection. Continue antibiotics. 4. Edema. 5. Hypertension. 6. Anemia of chronic disease. Follow up with Infectious Disease and continue antibiotics and follow up culture results. Continue hydration as tolerated. Sodium and creatinine levels are better. We will follow. Job ID: [id number] MTDD
--- NOTE | 2020-04-30 14:15 | CON ---
DATE OF CONSULTATION: 04/30/2020 This is a 60-year-old white male who I have known for a few years off and on, although not infrequently disappears for a number of months. He has areflexic bladder, presented I think initially with hydro and recurrent UTIs. He has had a suprapubic catheter in for a couple of years. He says it has not been changed for about a month and looking at, it is a blue catheter, which was a standard [facility] floor catheter, so my guess is the last time he had changed this probably while he was here at [facility], certainly not the type of catheters we used in my office. He was admitted with suprapubic pain on the . He has been afebrile, he had a slightly elevated white blood cell count when he came in, which was since normalized. He had low blood pressure, tachycardia since he has been in the hospital. He has actually had pretty good urine output. Urine apparently was grossly bloody, although today it is completely normal. His creatinine is 1.38. His COVID is negative. Urinalysis showed 2+ bacteria, 0 to 3 white cells, 0 to 3 red cells, that was on the . Had a CAT scan done which I have reviewed. He has adrenal myelolipoma. He has an atrophic left kidney. There are no stones. He has right extrarenal pelvis, but there is no hydro. Catheter appears to be in good position. He has partially decompressed bladder. His microbiology; his blood cultures are negative so far. Urine culture preliminary is young culture, looks like he did have I think it may be a pseudomonas in the urine, perhaps on his last visit here, this was from Dr. Sparks' notes. On 02/25, he had a pseudomonas in his urine and I think Dr. Sparks had treated him for. On his exam, penis without lesion. Testicles descended. SP site is clean. There was apparently some leakage around it, but not now, it was mentioned the urine is clear and it looks like there is like 700 to 800 mL in the bag. I prepped the SP site, removed the old SP, placed a new 22-mohawk, placed about 13 to 14 ml in the balloon. It was draining adequately. He is to see me in my office on the . I look at doing a cystoscopic exam on that time, make sure he does have any bladder pathology as a result of the gross hematuria. Looking at his record here at [facility], he has had ER visits pretty much on a monthly, the bimonthly basis dating back to August at the [facility] with possible urinary tract infections, bladder pain; possible urinary tract infections, flank pain; possible urinary tract infections, bilateral flank pain. It is very difficult for me to associate this with anything that I can do anything for. He does not have stones. He does not have hydro. He got a suprapubic that needs to be changed each month, which we can do in the office if those show up. Blood in the urine will do a cystoscopic exam on him. I am not at all sure that any of his symptoms are actually related to infection of the lower urinary tract. Job ID: [id number]
--- NOTE | 2020-04-30 16:13 | PRG ---
DATE OF SERVICE: 04/30/2020 SUBJECTIVE: Mr. Gaines was evaluated by Dr. Ruggiero, who kindly agreed to see the patient for me this morning. He removed the suprapubic catheter and put a new 22-Indonesian with 1340 mL in the balloon draining adequately and he is going to see Dr. Ruggiero in the office on the and so right now, he is feeling better. He has had no fever since admission. OBJECTIVE: GENERAL: Not remarkable. LUNGS: Clear. ABDOMEN: Soft with the exchange of the suprapubic catheter. LABORATORY DATA: The labs have normalized now. The creatinine is his baseline basically. Laboratory data with organism that had been retrieved before which I think right now it is likely a colonizer. The susceptibilities are still pending. ASSESSMENT AND DISCUSSION: Prior cerebrovascular accident, type 2 diabetes, bipolar disorder, benign prostatic hypertrophy with obstructive findings with a neurogenic bladder with a chronic suprapubic catheter. Of late, he has had these recurrent episodes, which have manifested intermittently sometimes with flank pain now and at this time with suprapubic discomfort, I would advise now discharge planning with oral Cipro for maybe another 10 days or so. The dose will be the usual dose of ciprofloxacin. Job ID: [id number]
[2020-04-30] MEDS: Albuterol 200 PUFF (6.7GM INHALER) INH PRN (16:57)
--- NOTE | 2020-04-30 17:16 | PDOC.HOSPP ---
- Subjective Encounter Date: 04/30/20 Encounter Time: 17:15 Subjective: Mr. Gaines was seen today in follow-up of UTI and urinary retention. He continues to complain of lower abdominal discomfort. He says it is relieved with [place]. - Objective Vital Signs & Weight: Vital Signs (12 hours) Temp Pulse Resp BP Pulse Ox 04/30/20 12:00 97.8 F 62 16 127/79 100 04/30/20 08:09 68 04/30/20 08:04 97.5 F L 68 16 129/83 100 04/30/20 06:07 56 L 12 93 L Weight Admit Weight 280 lb 3.2 oz Weight 276 lb 1.6 oz I&O: 04/29/20 04/30/20 05/01/20 06:59 06:59 06:59 Intake Total 1500 3510 360 Output Total 2800 4900 Balance -1300 -1390 360 Result Diagrams: 04/29/20 06:20 04/30/20 05:55 Additional Labs: Accuchecks 04/30/20 04/30/20 04/29/20 11:46 04:17 19:44 POC Glucose 123 H 121 H 156 H Hospitalist ROS - Medication Medications: Active Medications Generic Name Dose Route Start Last Admin Trade Name Freq PRN Reason Stop Dose Admin Hydrocodone Bitart/Acetaminophen 1 tab 04/29/20 02:25 04/30/20 08:29 Hydrocodone/Acetaminophen 5/325 Mg Tablet PO 1 tab Q4H PRN Administration Moderate Pain (4-6) Albuterol Sulfate 2 puff 04/29/20 05:22 04/30/20 16:57 Albuterol 200 Puff (6.7gm Inhaler) INH 2 puff Q4H PRN Administration SOB &/or Wheezing Albuterol/Ipratropium 3 ml 04/29/20 09:00 04/30/20 06:07 Ipratropium/Albuterol Sulfate 3 Ml Neb NEB 3 ml BID ALEIDA Administration Amlodipine Besylate 5 mg 04/29/20 21:00 04/29/20 21:19 Amlodipine 5 Mg Tab PO 5 mg HS ALEIDA Administration Aspirin 81 mg 04/29/20 09:00 04/30/20 08:06 Aspirin 81 Mg Enteric Coated Tablet PO 81 mg DAILY ALEIDA Administration Atorvastatin Calcium 10 mg 04/29/20 21:00 04/29/20 21:19 Atorvastatin Calcium 10 Mg Tab PO 10 mg HS ALEIDA Administration Benztropine Mesylate 1 mg 04/29/20 09:00 04/30/20 08:06 Benztropine 1 Mg Tab PO 1 mg DAILY ALEIDA Administration Divalproex Sodium 250 mg 04/29/20 09:00 04/30/20 08:08 Divalproex Sodium 250 Mg (Dr) Tab PO 250 mg BID ALEIDA Administration Donepezil HCl 10 mg 04/29/20 21:00 04/29/20 21:20 Donepezil Hcl 10 Mg Tab PO 10 mg HS ALEIDA Administration Enoxaparin Sodium 40 mg 04/29/20 09:00 04/30/20 08:08 Enoxaparin Sodium 40 Mg/0.4 Ml Syringe SC 40 mg 0900 ALEIDA Administration Finasteride 5 mg 04/29/20 09:00 04/30/20 08:09 Finasteride 5 Mg Tab PO 5 mg DAILY ALEIDA Administration Fluoxetine HCl 40 mg 04/30/20 09:00 04/30/20 10:13 Fluoxetine Hcl 20 Mg Cap PO 40 mg DAILY ALEIDA Administration Glipizide 2.5 mg 04/30/20 08:00 04/30/20 08:06 Glipizide Xl 2.5 Mg Tablet PO 2.5 mg QAM-WM ALEIDA Administration Sodium Chloride 1,000 mls @ 50 mls/hr 04/29/20 02:45 04/30/20 02:14 Normal Saline 0.9% IV 1,000 mls .Q20H ALEIDA Administration Cefepime HCl 1 gm/ Sodium 100 mls @ 200 mls/hr 04/29/20 09:00 04/30/20 08:06 Chloride IVPB 100 mls Q12HR ALEIDA Administration Iron/Minerals/Multivitamins 1 tab 04/29/20 09:00 04/30/20 08:09 Multivitamin W/ Minerals 1 Tab PO 1 tab DAILY ALEIDA Administration Levothyroxine Sodium 25 mcg 04/29/20 06:00 04/30/20 05:58 Levothyroxine Sodium 25 Mcg Tab PO 25 mcg 0600 ALEIDA Administration Lisinopril 2.5 mg 04/29/20 09:00 04/30/20 08:09 Lisinopril 2.5 Mg Tab PO 2.5 mg DAILY ALEIDA Administration Mometasone Furoate/Formoterol Fumar 2 puff 04/29/20 06:30 04/30/20 06:09 Mometasone 200 Mcg/Formoterol 5 Mcg 120 Puff Inhaler INH 2 puff BID-RT ALEIDA Administration Pantoprazole Sodium 40 mg 04/29/20 09:00 04/30/20 08:10 Pantoprazole 40 Mg Tab PO Not Given DAILY ALEIDA Potassium Chloride 20 meq 04/29/20 09:00 04/30/20 08:10 Potassium Chloride 20 Meq Packet PO 20 meq DAILY ALEIDA Administration Risperidone 3 mg 04/29/20 21:00 04/29/20 21:21 Risperidone 1 Mg Tab PO 3 mg HS ALEIDA Administration Senna/Docusate Sodium 1 tab 04/29/20 09:00 04/30/20 08:10 Senokot S 8.6-50 Mg Tab PO 1 tab BID ALEIDA Administration Trazodone HCl 50 mg 04/29/20 21:00 04/29/20 21:20 Trazodone Hcl 50 Mg Tab PO 50 mg HS ALEIDA Administration - Exam Eye: PERRL, anicteric sclera Heart: RRR, no murmur, no gallops, no rubs, normal peripheral pulses Respiratory: CTAB, no wheezes, no rales, no ronchi, normal chest expansion Gastrointestinal: soft, non-distended, normal bowel sounds, tender to palpation (+ mild lower abdominal tenderness no rebound or guarding) Hosp A/P (1) Complicated UTI (urinary tract infection) Code(s): N39.0 - URINARY TRACT INFECTION, SITE NOT SPECIFIED Status: Acute (2) BPH (benign prostatic hyperplasia) Code(s): N40.0 - BENIGN PROSTATIC HYPERPLASIA WITHOUT LOWER URINRY TRACT SYMP Status: Chronic (3) Bipolar disorder Code(s): F31.9 - BIPOLAR DISORDER, UNSPECIFIED Status: Chronic (4) Diabetes type 2, controlled Code(s): E11.9 - TYPE 2 DIABETES MELLITUS WITHOUT COMPLICATIONS Status: Chronic Qualifiers: Diabetes mellitus half-way insulin use: without terminal computer operator use (5) Hypertension Code(s): I10 - ESSENTIAL (PRIMARY) HYPERTENSION Status: Chronic Qualifiers: (6) Neurogenic bladder Code(s): N31.9 - NEUROMUSCULAR DYSFUNCTION OF BLADDER, UNSPECIFIED Status: Chronic - Plan * Complicated UTI due to Suprapubic catheter- Urine culture on the is growing Pseudomonas * His medical case was discussed with Dr. Carranza, and he believes the lab findings are most consistent with urinary colonization * DM- blood glucose is stable- continue his home medications * HTN- blood pressure is stable * Bipolar disorder- continue his home medications * The patient now says he is unable to care for himself, and wants placement in a nursing home facility- will consult case management
[2020-04-30] MEDS: traZODone HCl 50 MG TAB PO SCH (20:44)
[2020-04-30] MEDS: risperiDONE 1 MG TAB PO SCH (20:44)
[2020-04-30] MEDS: Amlodipine 5 MG TAB PO SCH (20:44)
[2020-04-30] MEDS: Atorvastatin Calcium 10 MG TAB PO SCH ×2 (20:44→22:30)
[2020-04-30] MEDS: Donepezil HCl 10 MG TAB PO SCH (20:44)
[2020-04-30] MEDS ORDERED: Atorvastatin Calcium 40 MG TAB PO SCH (22:45)
[2020-05-01] MEDS: Levothyroxine Sodium 25 MCG TAB PO SCH (05:22)
[2020-05-01] MEDS: Mometasone 200 MCG/Formoterol 5 MCG 120 PUFF INHALER INH SCH (07:26)
[2020-05-01] MEDS: Enoxaparin Sodium 40 MG/0.4 ML SYRINGE SC SCH (08:10)
[2020-05-01] MEDS: Aspirin 81 mg Enteric Coated Tablet PO SCH (08:10)
[2020-05-01] MEDS: Benztropine 1 MG TAB PO SCH (08:10)
[2020-05-01] MEDS: Divalproex Sodium 250 MG (DR) TAB PO SCH (08:10)
[2020-05-01] MEDS: FLUoxetine HCl 20 MG CAP PO SCH (08:11)
[2020-05-01] MEDS: Finasteride 5 MG TAB PO SCH (08:11)
[2020-05-01] MEDS: Cefepime 1 GM in Sodium Chloride 0.9% 100 ML IVPB SCH (08:11)
[2020-05-01] MEDS: Lisinopril 2.5 MG TAB PO SCH (08:11)
[2020-05-01] MEDS: Senokot S 8.6-50 MG TAB PO SCH (08:13)
[2020-05-01] MEDS: Multivitamin W/ Minerals 1 TAB PO SCH (08:13)
[2020-05-01] MEDS: HYDROcodone/Acetaminophen 5/325 mg Tablet PO PRN ×2 (08:13→14:02)
--- NOTE | 2020-05-01 09:29 | PRG ---
DATE OF SERVICE: 05/01/2020 SUBJECTIVE: Patient was seen and examined at bedside and overnight events noted. Patient denies any shortness of breath or chest pain or palpitation. No history of nausea or vomiting or diarrhea or fever or chills or cramps. OBJECTIVE: General: This is a well-built male, in no apparent distress. Vital Signs: Temperature . Heart Rate 61. Respiratory rate 18. Blood pressure 138/86. HEENT: Atraumatic, normocephalic. Oral mucosa is moist. Neck: Supple. Cardiovascular: S1, S2 heard. Rate and rhythm regular. Respiratory: Clear to auscultation. Gastrointestinal: Abdomen is soft. Musculoskeletal: No tenderness. No edema. Dermatologic: No skin rash. Neurologic: Alert and awake and oriented x3. No focal neurologic deficits. Moving all the extremities. Psychiatric: Mood and affect normal. LABORATORY DATA: No labs done today. ASSESSMENT AND PLAN: 1. Acute kidney injury on chronic kidney disease. 2. Hyponatremia. 3. Urinary tract infection. 4. Edema. 5. Hypertension. 6. Anemia of chronic disease. 7. Monitor renal function. Continue antibiotics. Follow up culture results. Job ID: [id number]
--- NOTE | 2020-05-01 13:43 | PRG ---
DATE OF SERVICE: 05/01/2020 SUBJECTIVE: Mr. Gaines is feeling okay. He does not have any respiratory symptoms. No vomiting or diarrhea. Suprapubic pain is better. OBJECTIVE: VITAL SIGNS: He is afebrile. LUNGS: Clear. HEART: S1-S2, regular rate. ABDOMEN: Soft, not distended. Mild suprapubic tenderness. LABORATORY DATA: White cell count is 10.7, hemoglobin 12.5, platelets 188. Creatinine 1.38. Blood culture negative. Urinalysis; 0 to 3 wbc's. ASSESSMENT AND DISCUSSION: Prior cerebrovascular accident, type 2 diabetes, bipolar disorder, benign prostatic hypertrophy, obstructive findings with neurogenic bladder and chronic suprapubic catheter and symptoms related probably to suprapubic catheter malfunction. The catheter has been replaced and I think he cannot take Cipro because of allergy history actually, so no antimicrobial therapy will be recommended at this point in time, particularly in view of the negative or normal urinalysis. He can follow up with Dr. Ruggiero, where he may proceed with a cystoscopy again. Job ID: [id number]
[2020-05-01] MEDS: Albuterol 200 PUFF (6.7GM INHALER) INH PRN (15:41)
--- NOTE | 2020-05-01 17:07 | PDOC.HOSPP ---
- Subjective Encounter Date: 05/01/20 Encounter Time: 17:02 Subjective: Mr. Gaines was seen today in follow-up of urinary retention and colonization. He does not have any new complaints today - Objective Vital Signs & Weight: Vital Signs (12 hours) Temp Pulse Resp BP BP Pulse Ox 05/01/20 08:11 74 149/81 H 05/01/20 07:29 97.8 F 61 18 138/86 94 L 05/01/20 07:27 57 L 16 96 05/01/20 05:26 97.5 F L 59 L 18 137/85 97 Weight Admit Weight 280 lb 3.2 oz Weight 279 lb 14.4 oz I&O: 04/30/20 05/01/20 05/02/20 06:59 06:59 06:59 Intake Total 3510 3990 Output Total 4900 4400 Balance -1390 -410 Result Diagrams: 04/29/20 06:20 04/30/20 05:55 Additional Labs: Accuchecks 05/01/20 05/01/20 05/01/20 16:18 11:19 05:24 POC Glucose 135 H 120 H 124 H 04/30/20 04/30/20 20:54 17:44 POC Glucose 115 H 132 H Hospitalist ROS - Medication Medications: Active Medications Generic Name Dose Route Start Last Admin Trade Name Freq PRN Reason Stop Dose Admin Hydrocodone Bitart/Acetaminophen 1 tab 04/29/20 02:25 05/01/20 14:02 Hydrocodone/Acetaminophen 5/325 Mg Tablet PO 1 tab Q4H PRN Administration Moderate Pain (4-6) Albuterol Sulfate 2 puff 04/29/20 05:22 05/01/20 15:41 Albuterol 200 Puff (6.7gm Inhaler) INH 2 puff Q4H PRN Administration SOB &/or Wheezing Albuterol/Ipratropium 3 ml 04/29/20 09:00 05/01/20 07:27 Ipratropium/Albuterol Sulfate 3 Ml Neb NEB 3 ml BID ALEIDA Administration Amlodipine Besylate 5 mg 04/29/20 21:00 04/30/20 20:44 Amlodipine 5 Mg Tab PO 5 mg HS ALEIDA Administration Aspirin 81 mg 04/29/20 09:00 05/01/20 08:10 Aspirin 81 Mg Enteric Coated Tablet PO 81 mg DAILY ALEIDA Administration Benztropine Mesylate 1 mg 04/29/20 09:00 05/01/20 08:10 Benztropine 1 Mg Tab PO 1 mg DAILY ALEIDA Administration Divalproex Sodium 250 mg 04/29/20 09:00 05/01/20 08:10 Divalproex Sodium 250 Mg (Dr) Tab PO 250 mg BID ALEIDA Administration Donepezil HCl 10 mg 04/29/20 21:00 04/30/20 20:44 Donepezil Hcl 10 Mg Tab PO 10 mg HS ALEIDA Administration Enoxaparin Sodium 40 mg 04/29/20 09:00 05/01/20 08:10 Enoxaparin Sodium 40 Mg/0.4 Ml Syringe SC 40 mg 0900 ALEIDA Administration Finasteride 5 mg 04/29/20 09:00 05/01/20 08:11 Finasteride 5 Mg Tab PO 5 mg DAILY ALEIDA Administration Fluoxetine HCl 40 mg 04/30/20 09:00 05/01/20 08:11 Fluoxetine Hcl 20 Mg Cap PO 40 mg DAILY ALEIDA Administration Glipizide 2.5 mg 04/30/20 08:00 05/01/20 08:10 Glipizide Xl 2.5 Mg Tablet PO 2.5 mg QAM-WM ALEIDA Administration Sodium Chloride 1,000 mls @ 50 mls/hr 04/29/20 02:45 04/30/20 23:04 Normal Saline 0.9% IV 1,000 mls .Q20H ALEIDA Administration Cefepime HCl 1 gm/ Sodium 100 mls @ 200 mls/hr 04/29/20 09:00 05/01/20 08:11 Chloride IVPB 100 mls Q12HR ALEIDA Administration Iron/Minerals/Multivitamins 1 tab 04/29/20 09:00 05/01/20 08:13 Multivitamin W/ Minerals 1 Tab PO 1 tab DAILY ALEIDA Administration Levothyroxine Sodium 25 mcg 04/29/20 06:00 05/01/20 05:22 Levothyroxine Sodium 25 Mcg Tab PO 25 mcg 0600 ALEIDA Administration Lisinopril 2.5 mg 04/29/20 09:00 05/01/20 08:11 Lisinopril 2.5 Mg Tab PO 2.5 mg DAILY ALEIDA Administration Mometasone Furoate/Formoterol Fumar 2 puff 04/29/20 06:30 05/01/20 07:26 Mometasone 200 Mcg/Formoterol 5 Mcg 120 Puff Inhaler INH 2 puff BID-RT ALEIDA Administration Pantoprazole Sodium 40 mg 04/29/20 09:00 05/01/20 08:25 Pantoprazole 40 Mg Tab PO Not Given DAILY ALEIDA Potassium Chloride 20 meq 04/29/20 09:00 05/01/20 08:13 Potassium Chloride 20 Meq Packet PO 20 meq DAILY ALEIDA Administration Senna/Docusate Sodium 1 tab 04/29/20 09:00 05/01/20 08:13 Senokot S 8.6-50 Mg Tab PO 1 tab BID AELIDA Administration Trazodone HCl 50 mg 04/29/20 21:00 04/30/20 20:44 Trazodone Hcl 50 Mg Tab PO 50 mg HS ALEIDA Administration - Exam Eye: PERRL, anicteric sclera Heart: RRR, no murmur, no gallops, no rubs, normal peripheral pulses Respiratory: CTAB, no wheezes, no rales, no ronchi, normal chest expansion, no tachypnea Gastrointestinal: soft, non-tender, non-distended, normal bowel sounds, no palpable masses, no hepatomegaly Extremities: no cyanosis, 1+ LE edema Hosp A/P (1) Complicated UTI (urinary tract infection) Code(s): N39.0 - URINARY TRACT INFECTION, SITE NOT SPECIFIED Status: Acute (2) BPH (benign prostatic hyperplasia) Code(s): N40.0 - BENIGN PROSTATIC HYPERPLASIA WITHOUT LOWER URINRY TRACT SYMP Status: Chronic (3) Bipolar disorder Code(s): F31.9 - BIPOLAR DISORDER, UNSPECIFIED Status: Chronic (4) Diabetes type 2, controlled Code(s): E11.9 - TYPE 2 DIABETES MELLITUS WITHOUT COMPLICATIONS Status: Chronic Qualifiers: Diabetes mellitus detention insulin use: without genetic physician use (5) Hypertension Code(s): I10 - ESSENTIAL (PRIMARY) HYPERTENSION Status: Chronic Qualifiers: (6) Neurogenic bladder Code(s): N31.9 - NEUROMUSCULAR DYSFUNCTION OF BLADDER, UNSPECIFIED Status: Chronic - Plan * Complicated UTI due to Suprapubic catheter- Urine culture on the is now growing pseudomonas, the same organism , and after discussion with Dr. Kumar, he feels this is colonization * He does ot need detention antibiotics. I have explained to the patient that we could be breeding a multi-drug resistant strain if we continue antibiotics if it is not indicated. He does not seem to be grasping this concept. * He was also offered assisted placement, but says he " does not want to participate in PT". he would rather go home. He has home health already, and someone who comes in to help him with ADL's * Stable for discharge home
--- NOTE | 2020-05-01 17:56 | PDOC.DS.DS ---
Provider - Provider Date of Admission: 04/30/20 10:02 Date of Discharge: 05/01/20 Admitting Provider: Shaheed Teixeira Consultations: Infectious Disease, Urology Primary Care Physician: Tomeka Blas MD Course - Hospital Course Hospital Course: Mr. Gaines is a 60-year-old gentleman that has a history of urinary retention and suprapubic catheter. 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 He presented to the emergency room with complaints of feeling generally weak and having chills. At the time of his evaluation he denied having any abdominal pain. He was evaluated in the emergency room and had a urine urine findings suspicious for urinary tract infection. There was 1+ nitrites as well as 1+ bacteria. However there was no evidence of any active sediment. He was placed empirically on antibiotics and a urine culture was obtained. Consultation with urology was also requested as well as ID. He was evaluated by Dr. Carranza and Dr. Marrufo is very familiar with the patient and stated that he has chronic colonization of his urine and on this episode it is unlikely that the urine findings represent an active urinary tract infection. He also notes that the patient commonly complains of lower abdominal pain which is unlikely to be related to a urinary tract infection he also states that the patient has not been to the office recently to have the scheduled suprapubic catheter changed monthly as has been recommended. As a result he did not feel that he required treatment with antibiotics on this particular occasion. He was also seen by ID during his hospital stay and it was also felt that this likely represents colonization as well. The patient stated that he was having difficulty caring for himself at home the day prior to discharge. For this reason we placed a consult for physical therapy as well as a detention evaluation. When the physical therapist came to evaluate the patient he refused to do physical therapy. He stated that he really wanted long-term care placement. We explained the placement process and insurance requirements. After discussion the patient felt that he could go home instead of going to detention he stated that he was not planning on participating in physical therapy and in fact did not want to participate in physical therapy and for this reason he felt he just would rather just go home. The patient says now and contrary to what he is stated yesterday that he has appropriate help at home he was on the phone with a family member while I was in the room and was asking them to come to pick him up. He tells me that he has [facility]. He also says that he has the supplies that he needs in order to manage himself. The patient is therefore being discharged home. He is not requiring long-term antibiotics due to the fact that this is a apparent colonization and will be discharged home on the same medications that he came in the hospital on. Pertinent Studies: CT scan of abdomen and pelvis Resuscitation Status: 04/29/20 02:25 Resuscitation Status Routine Resuscitation Status: FULL: Full Resuscitation - Labs Lab Results: 04/29/20 06:20 04/30/20 05:55 Abnormal Lab Results - Last 48 hrs 04/30/20 05:55: Sodium 135 L, Creatinine 1.38 H Microbiology - Entire Visit 04/28/20 20:55 Urine Suprapubic catheter Urine Culture - Final Pseudomonas aeruginosa 04/28/20 20:59 Venous blood - Right Arm Blood Culture - Preliminary NO GROWTH AT 48 HOURS 04/28/20 20:59 Venous blood - Left Arm Blood Culture - Preliminary NO GROWTH AT 48 HOURS - Physical Exam Vitals: Vital Signs (12 hours) Temp Pulse Resp BP BP Pulse Ox 05/01/20 08:11 74 149/81 H 05/01/20 07:29 97.8 F 61 18 138/86 94 L 05/01/20 07:27 57 L 16 96 Weight Admit Weight 280 lb 3.2 oz Weight 279 lb 14.4 oz Physical Exam: The patient was seen and examined on the day of discharge. Problem - Problem (1) Complicated UTI (urinary tract infection) Code(s): N39.0 - URINARY TRACT INFECTION, SITE NOT SPECIFIED Status: Acute (2) BPH (benign prostatic hyperplasia) Code(s): N40.0 - BENIGN PROSTATIC HYPERPLASIA WITHOUT LOWER URINRY TRACT SYMP Status: Chronic (3) Bipolar disorder Code(s): F31.9 - BIPOLAR DISORDER, UNSPECIFIED Status: Chronic (4) Diabetes type 2, controlled Code(s): E11.9 - TYPE 2 DIABETES MELLITUS WITHOUT COMPLICATIONS Status: Chronic Qualifiers: Diabetes mellitus retirement insulin use: without retirement use (5) Hypertension Code(s): I10 - ESSENTIAL (PRIMARY) HYPERTENSION Status: Chronic Qualifiers: (6) Neurogenic bladder Code(s): N31.9 - NEUROMUSCULAR DYSFUNCTION OF BLADDER, UNSPECIFIED Status: Chronic Plan - Discharge Medications Home Medications: Medication Instructions Recorded Confirmed Type Acetaminophen 325 mg PO Q4H PRN 11/15/18 04/29/20 History Aspirin [Adult Low Dose Aspirin EC] 81 mg PO DAILY 11/15/18 04/29/20 History Benztropine [Cogentin] 1 mg PO DAILY 11/15/18 04/29/20 History Budesonide-Formoterol [Symbicort 2 puff INH BID 11/15/18 04/29/20 History 160-4.5] Donepezil HCl 10 mg PO HS 11/15/18 04/29/20 History FLUoxetine HCl [Prozac] 40 mg PO DAILY 11/15/18 04/29/20 History Finasteride [Proscar] 5 mg PO DAILY 11/15/18 04/29/20 History Ipratropium/Albuterol Sulfate 3 ml INH BID 11/15/18 04/29/20 History [DuoNeb] Levothyroxine Sodium [Synthroid] 25 mcg PO DAILY 11/15/18 04/29/20 History Lisinopril 2.5 mg PO DAILY 11/15/18 04/29/20 History risperiDONE [RisperDAL] 3 mg PO HS 11/15/18 04/29/20 History traZODone HCl [Trazodone HCl] 100 mg PO HS 11/15/18 04/29/20 History Cholecalciferol (Vitamin D3) 1,000 unit PO DAILY 02/20/19 04/29/20 History [Vitamin D3] Multivitamin [Multivitamins] 1 cap PO DAILY 02/20/19 04/29/20 History Albuterol Sulfate [Albuterol 2 puff IH PRN PRN 12/12/19 04/29/20 History Sulfate Hfa] Pravastatin Sodium 40 mg PO HS 12/12/19 04/29/20 History Sennosides/Docusate Sodium 1 each PO BID 12/12/19 04/29/20 History [Docusate Sodium-Sennosides Tab] glipiZIDE [Glucotrol XL] 2.5 mg PO QAM-WM 12/12/19 04/29/20 History Amlodipine [Norvasc] 5 mg PO HS 02/19/20 04/29/20 History Furosemide 40 mg PO QAM 02/20/20 04/29/20 History Potassium Chloride 20 meq PO DAILY 02/20/20 04/29/20 History Atorvastatin Calcium [Lipitor] 10 mg PO HS tab 04/06/20 04/29/20 Rx Divalproex Sodium [Depakote] 250 mg PO BID tab 04/06/20 04/29/20 Rx Mometasone/Formoterol 200/5 2 puff INH BID aer 04/06/20 04/29/20 Rx [Dulera 200 mcg/5 mcg Inhaler] Pantoprazole [Protonix] 40 mg PO DAILY tab 04/06/20 04/29/20 Rx Allergies: ciprofloxacin Allergy (Verified 12/12/19 07:07) Anaphylaxis per pt nortriptyline [From Pamelor] Allergy (Verified 08/27/19 18:07) thiothixene [From Navane] Allergy (Verified 08/27/19 18:07) DIZZINESS tuberculin, purified protein deriva Allergy (Verified 02/19/20 22:17) per pt causes swelling - Discharge Instructions Activity:: Activity as Tolerated Nourishment:: Heart Healthy Diet Therapies:: Home Health - Follow up Plan Referrals: Tomeka Blas MD [Primary Care Provider] - Disposition: HOME HEALTH Quality - Care Measures CORE MEASURES:: N/A
[2020-05-01 18:59] VITALS: BP 170/88; TEMP 98.2
[2020-05-01] MEDS: Sodium Chloride 0.9% 1,000 ML IV SCH (19:25)
[2020-05-01] MEDS ORDERED: Atorvastatin Calcium 40 MG TAB PO SCH (21:00)
[2020-05-01] MEDS ORDERED: risperiDONE 3 MG TAB PO SCH (21:00)
== END 2020-05-01 18:53 | disposition home health service (06) | DRG 699 ==
LOC: ERS 20:24 → T4-A 23:17 → OBSVTOIN 04-30 10:02
PROVIDERS: ADMIT Internal Medicine; ATTEND Internal Medicine
PROC: 0T2BX0Z Change Drainage Device in Bladder, External Approach (ICD-10-PCS; principal; 2020-04-30)
DX: T83.518A Infection and inflammatory reaction due to other urinary catheter, initial encounter (principal); N39.0 Urinary tract infection, site not specified; E87.1 Hypo-osmolality and hyponatremia; I50.32 Chronic diastolic (congestive) heart failure; I13.0 Hypertensive heart and chronic kidney disease with heart failure and stage 1 through stage 4 chronic kidney disease, or unspecified chronic kidney disease; N17.9 Acute kidney failure, unspecified; I69.354 Hemiplegia and hemiparesis following cerebral infarction affecting left non-dominant side; N31.9 Neuromuscular dysfunction of bladder, unspecified; Y84.6 Urinary catheterization as the cause of abnormal reaction of the patient, or of later complication, without mention of misadventure at the time of the procedure; N40.1 Benign prostatic hyperplasia with lower urinary tract symptoms; N18.30 Chronic kidney disease, stage 3 unspecified; E11.22 Type 2 diabetes mellitus with diabetic chronic kidney disease; E78.5 Hyperlipidemia, unspecified; J44.9 Chronic obstructive pulmonary disease, unspecified; D63.1 Anemia in chronic kidney disease; M19.90 Unspecified osteoarthritis, unspecified site; F20.9 Schizophrenia, unspecified; F03.90 Unspecified dementia, unspecified severity, without behavioral disturbance, psychotic disturbance, mood disturbance, and anxiety; B96.5 Pseudomonas (aeruginosa) (mallei) (pseudomallei) as the cause of diseases classified elsewhere; F31.9 Bipolar disorder, unspecified; Z79.84 Long term (current) use of oral hypoglycemic drugs; Z79.82 Long term (current) use of aspirin; Z88.1 Allergy status to other antibiotic agents; Z88.8 Allergy status to other drugs, medicaments and biological substances; Z79.890 Hormone replacement therapy; Z79.899 Other long term (current) drug therapy; Z79.51 Long term (current) use of inhaled steroids; Z87.891 Personal history of nicotine dependence
CPT/HCPCS: 36415; 36416; 71045; 74177; 80048; 80053; 81003; 81015; 83605; 85007; 85025; 85027; 87040; 87077; 87086; 87186; 87635; 94640; 96365; 96366; 96372; 96375; 96376; G0378; J0692; J1650; J2270; J2405; J3490; J7620; Q9967; U0003

== ENCOUNTER 2020-05-23 17:15 | Emergency (ER) | payer MEDICARE, OTHER ==
[2020-05-23 17:35] LABS: Bilirubin Negative (Negative); Blood, Urine Trace (Negative); Glucose, Urine (Dipstick) 500 mg/dL (Negative); Ketone, Urine Negative (Negative); Leukocyte Moderate (Negative); Nitrite Positive (Negative); Protein, Urine (Dipstick) Negative (Neg-Trace); Urobilinogen 0.2 mg/dL (Less than 2)
[2020-05-23 17:41] LABS: Clarity Hazy (Clear)
[2020-05-23 17:43] LABS: Bacteria/HPF 1+ HPF (None Seen); RBC/HPF 0-3 HPF (0-3); Squamous Epithelial 0-3 HPF (0-3)
[2020-05-23 17:58] LABS: #Eosinphils 0.2 thou/uL (0.0-0.7); #Lymphocytes 1.6 thou/uL (1.20-3.40); #Monocytes 1.1 thou/uL (0.11-0.59); #Neutrophils 6.8 thou/uL (1.40-6.50); %Basophils 0.4 % (0.0-1.0); %Eosinophils 2.2 % (0.0-10.0); %Monocytes 10.9 % (0.0-10.0); %Neutrophils 70.4 % (42.0-75.0); Hemoglobin 12.7 g/dL (14.0-18.0); Mean Corpuscular HGB CONC 34.8 g/dL (32.0-36.0); Mean Corpuscular Hemoglobin 31.9 pg (27.0-31.0); Mean Corpuscular Volume 91.4 fL (78.0-98.0); Mean Platelet Volume 7.2 fL (7.4-10.4); Platelet Count 228 thou/uL (130-400); RBC Distribution Width 12.3 % (11.5-14.5); Red Blood Cell (RBC) Count 3.99 mill/uL (4.70-6.10); White Blood Cell (WBC) Count 9.7 thou/uL (4.8-10.8)
[2020-05-23 18:19] LABS: ALT (SGPT) 23 U/L (8-55); AST (SGOT) 14 U/L (5-34); Albumin 3.8 g/dL (3.5-5.0); Alkaline Phosphatase 86 U/L (40-110); Anion Gap 13 mmol/L (10-20); BUN (Urea Nitrogen) 12 mg/dL (8.4-25.7); Bilirubin, Total 0.3 mg/dL (0.2-1.2); Calc. Creatinine Clearance 0 mL/min (70-130); Calcium 8.7 mg/dL (7.8-10.44); Carbon Dioxide 25 mmol/L (22-29); Chloride 96 mmol/L (98-107); Globulin 3.1 g/dL (2.4-3.5); Glucose 172 mg/dL (70-105); Potassium 4.3 mmol/L (3.5-5.1); Protein, Total 6.9 g/dL (6.0-8.3); Sodium 130 mmol/L (136-145)
--- NOTE | 2020-05-23 19:25 | RAD ---
Portable frontal chest radiograph: 05/23/2020 COMPARISON: 05/23/2020 HISTORY: Cough, chills FINDINGS: Lungs are clear. Heart and mediastinal contours appear within normal limits. IMPRESSION: No acute findings.
[2020-05-23] MEDS ORDERED: Cefepime 2 GM VIAL ONE (19:59)
--- NOTE | 2020-05-26 16:28 | EKG ---
Test Reason : Blood Pressure : / mmHG Vent. Rate : 076 BPM Atrial Rate : 076 BPM P-R Int : 126 ms QRS Dur : 086 ms QT Int : 376 ms P-R-T Axes : 041 017 028 degrees QTc Int : 423 ms Normal sinus rhythm Normal ECG Confirmed by CHET TRUJILLO M.D. ([id number]), multimedia editor MARCIAL VILLALOBOS ([id number]) on 05/26/2020 4:28:22 PM Referred By: Confirmed By:CHET TRUJILLO M.D.
== END 2020-05-23 23:35 | disposition short-term general hospital (02) ==
LOC: ERS 17:15
DX: N39.0 Urinary tract infection, site not specified (principal); E11.9 Type 2 diabetes mellitus without complications; E03.9 Hypothyroidism, unspecified; E78.5 Hyperlipidemia, unspecified; I11.0 Hypertensive heart disease with heart failure; I50.9 Heart failure, unspecified; Z86.73 Personal history of transient ischemic attack (TIA), and cerebral infarction without residual deficits; Z79.82 Long term (current) use of aspirin; Z79.899 Other long term (current) drug therapy
CPT/HCPCS: 36415; 71045; 93005; 96365; J0692

== ENCOUNTER 2020-07-01 17:12 | Emergency (ER) | payer MEDICARE ==
--- NOTE | 2020-07-01 18:06 | RAD ---
Chest one view HISTORY: Dyspnea. Hypertension. COMPARISON: 05/23/2020. FINDINGS: Cardiac silhouette and pulmonary vasculature are unremarkable. Mediastinum is midline. No confluent airspace consolidation or evidence of pneumothorax. IMPRESSION : No abnormalities are demonstrated.
[2020-07-01 18:16] LABS: #Basophils 0.1 thou/uL (0.0-0.2); #Eosinphils 0.3 thou/uL (0.0-0.7); #Lymphocytes 1.5 thou/uL (1.20-3.40); #Neutrophils 9.9 thou/uL (1.40-6.50); %Basophils 0.6 % (0.0-1.0); %Eosinophils 2.6 % (0.0-10.0); %Lymphocytes 11.5 % (21.0-51.0); %Monocytes 8.1 % (0.0-10.0); %Neutrophils 77.3 % (42.0-75.0); Hemoglobin 12.9 g/dL (14.0-18.0); Mean Corpuscular HGB CONC 35.2 g/dL (32.0-36.0); Mean Corpuscular Hemoglobin 32.2 pg (27.0-31.0); Mean Corpuscular Volume 91.4 fL (78.0-98.0); Platelet Count 250 thou/uL (130-400); RBC Distribution Width 12.2 % (11.5-14.5); Red Blood Cell (RBC) Count 3.99 mill/uL (4.70-6.10); White Blood Cell (WBC) Count 12.8 thou/uL (4.8-10.8)
[2020-07-01 18:20] LABS: Bacteria/HPF 3+ HPF (None Seen); Bilirubin Negative (Negative); Blood, Urine Negative (Negative); Clarity Clear (Clear); Glucose, Urine (Dipstick) Greater than 1000 mg/dL (Negative); Ketone, Urine Negative (Negative); Leukocyte 75 Leu/uL (Negative); Nitrite 1+ (Negative); Protein, Urine (Dipstick) 10 mg/dL (Neg-Trace); RBC/HPF 0-3 HPF (0-3); Specific Gravity, Urine 1.006 (1.002-1.036); Squamous Epithelial None Seen HPF (0-3); Urobilinogen Normal mg/dL (Less than 2)
[2020-07-01 18:37] LABS: ALT (SGPT) 21 U/L (8-55); AST (SGOT) 14 U/L (5-34); Albumin 3.9 g/dL (3.5-5.0); Alkaline Phosphatase 83 U/L (40-110); Anion Gap 16 mmol/L (10-20); BUN (Urea Nitrogen) 28 mg/dL (8.4-25.7); Bilirubin, Total 0.2 mg/dL (0.2-1.2); CK (CPK) 116 U/L (30-200); Calc. Creatinine Clearance 0 mL/min (70-130); Carbon Dioxide 25 mmol/L (22-29); Chloride 94 mmol/L (98-107); Glucose 220 mg/dL (70-105); Potassium 4.4 mmol/L (3.5-5.1); Protein, Total 6.9 g/dL (6.0-8.3); Sodium 131 mmol/L (136-145)
== END 2020-07-01 20:31 | disposition home or self-care (01) ==
LOC: ERS 17:12
DX: R53.1 Weakness (principal); R82.79 Other abnormal findings on microbiological examination of urine; E11.9 Type 2 diabetes mellitus without complications; E03.9 Hypothyroidism, unspecified; E78.5 Hyperlipidemia, unspecified; J44.9 Chronic obstructive pulmonary disease, unspecified; I11.0 Hypertensive heart disease with heart failure; I50.9 Heart failure, unspecified; Z87.891 Personal history of nicotine dependence; Z79.51 Long term (current) use of inhaled steroids; Z79.82 Long term (current) use of aspirin; Z79.899 Other long term (current) drug therapy; Z79.84 Long term (current) use of oral hypoglycemic drugs
CPT/HCPCS: 36415; 71045; 80053; 81003; 81015; 82550; 83605; 84484; 85025; 87040; 87077; 87086; 87186; 93005

== ENCOUNTER 2020-07-12 15:59 | Emergency (ER) | payer OTHER ==
[2020-07-12 16:40] LABS: #Basophils 0.1 thou/uL (0.0-0.2); #Eosinphils 0.3 thou/uL (0.0-0.7); #Lymphocytes 1.6 thou/uL (1.20-3.40); #Neutrophils 7.1 thou/uL (1.40-6.50); %Basophils 0.7 % (0.0-1.0); %Lymphocytes 15.7 % (21.0-51.0); %Monocytes 9.6 % (0.0-10.0); Hemoglobin 13.1 g/dL (14.0-18.0); Mean Corpuscular HGB CONC 34.3 g/dL (32.0-36.0); Mean Corpuscular Volume 90.3 fL (78.0-98.0); Mean Platelet Volume 6.8 fL (7.4-10.4); Platelet Count 259 thou/uL (130-400); RBC Distribution Width 11.9 % (11.5-14.5); Red Blood Cell (RBC) Count 4.24 mill/uL (4.70-6.10); White Blood Cell (WBC) Count 10.1 thou/uL (4.8-10.8)
[2020-07-12 16:43] LABS: Bilirubin Negative (Negative); Blood, Urine Trace (Negative); Glucose, Urine (Dipstick) Negative (Negative); Ketone, Urine Negative (Negative); Leukocyte Moderate (Negative); Nitrite Positive (Negative); Protein, Urine (Dipstick) Negative (Neg-Trace); Urobilinogen 0.2 mg/dL (Less than 2)
[2020-07-12 16:50] LABS: Clarity Hazy (Clear)
[2020-07-12 16:51] LABS: Squamous Epithelial None Seen HPF (0-3)
[2020-07-12 16:52] LABS: Bacteria/HPF 2+ HPF (None Seen)
--- NOTE | 2020-07-12 16:57 | RAD ---
PORTABLE CHEST: Date: 07/12/2020 HISTORY: Lower extremity swelling. FINDINGS: Heart size is within normal limits for portable technique. Mediastinal structures are unremarkable. L ungs are clear of infiltrates. There are no signs of failure. IMPRESSION: No active intrathoracic disease. POS: DASH
[2020-07-12 17:44] LABS: Albumin 4.1 g/dL (3.5-5.0)
[2020-07-12 17:45] LABS: Chloride 97 mmol/L (98-107); Potassium 4.8 mmol/L (3.5-5.1); Sodium 136 mmol/L (136-145)
[2020-07-12 17:46] LABS: Calcium 9.4 mg/dL (7.8-10.44); Glucose 96 mg/dL (70-105)
[2020-07-12 17:47] LABS: Globulin 3.5 g/dL (2.4-3.5); Protein, Total 7.6 g/dL (6.0-8.3)
[2020-07-12 17:48] LABS: Anion Gap 19 mmol/L (10-20); Bilirubin, Total 0.3 mg/dL (0.2-1.2); Carbon Dioxide 25 mmol/L (22-29)
[2020-07-12 17:49] LABS: Alkaline Phosphatase 98 U/L (40-110)
[2020-07-12 17:50] LABS: Calc. Creatinine Clearance 0 mL/min (70-130)
[2020-07-12 17:51] LABS: BUN (Urea Nitrogen) 19 mg/dL (8.4-25.7)
[2020-07-12 17:52] LABS: ALT (SGPT) 18 U/L (8-55); AST (SGOT) 21 U/L (5-34)
--- NOTE | 2020-07-14 16:17 | EKG ---
Test Reason : Blood Pressure : / mmHG Vent. Rate : 072 BPM Atrial Rate : 072 BPM P-R Int : 128 ms QRS Dur : 098 ms QT Int : 392 ms P-R-T Axes : 034 002 026 degrees QTc Int : 429 ms Normal sinus rhythm Normal ECG Confirmed by EVERTON COLLINS DO ([id number]), film editor MARCIAL VILLALOBOS ([id number]) on 07/14/2020 4:16:38 PM Referred By: Confirmed By:EVERTON COLLINS DO
== END 2020-07-12 20:00 | disposition home or self-care (01) ==
LOC: ERS 15:59
DX: R60.0 Localized edema (principal); N39.0 Urinary tract infection, site not specified; E11.9 Type 2 diabetes mellitus without complications; I11.0 Hypertensive heart disease with heart failure; I50.9 Heart failure, unspecified; E03.9 Hypothyroidism, unspecified; E78.5 Hyperlipidemia, unspecified; J44.9 Chronic obstructive pulmonary disease, unspecified; Z87.891 Personal history of nicotine dependence; Z79.899 Other long term (current) drug therapy; Z79.82 Long term (current) use of aspirin
CPT/HCPCS: 71045; 80053; 81003; 81015; 83880; 84484; 85025; 93005

== ENCOUNTER 2020-07-28 00:01 | Emergency (ER) | payer MEDICARE, OTHER ==
[2020-07-28 00:50] LABS: Bilirubin Negative (Negative); Blood, Urine Negative (Negative); Clarity Clear (Clear); Glucose, Urine (Dipstick) 100 mg/dL (Negative); Ketone, Urine Negative (Negative); Leukocyte 75 Leu/uL (Negative); Nitrite Negative (Negative); Protein, Urine (Dipstick) Negative (Neg-Trace); RBC/HPF None Seen HPF (0-3); Specific Gravity, Urine 1.003 (1.002-1.036); Squamous Epithelial None Seen HPF (0-3); Urobilinogen Normal mg/dL (Less than 2); pH, Urine 7.5 (5.0-9.0)
[2020-07-28 00:51] LABS: Bacteria/HPF 1+ HPF (None Seen)
[2020-07-28 00:52] LABS: #Basophils 0.1 thou/uL (0.0-0.2); #Eosinphils 0.3 thou/uL (0.0-0.7); #Lymphocytes 2.1 thou/uL (1.20-3.40); #Monocytes 1.2 thou/uL (0.11-0.59); #Neutrophils 7.9 thou/uL (1.40-6.50); %Basophils 0.6 % (0.0-1.0); %Eosinophils 2.8 % (0.0-10.0); %Lymphocytes 17.8 % (21.0-51.0); %Monocytes 10.4 % (0.0-10.0); %Neutrophils 68.4 % (42.0-75.0); Hemoglobin 12.9 g/dL (14.0-18.0); Mean Corpuscular HGB CONC 34.4 g/dL (32.0-36.0); Mean Corpuscular Hemoglobin 31.1 pg (27.0-31.0); Mean Corpuscular Volume 90.4 fL (78.0-98.0); Mean Platelet Volume 7.2 fL (7.4-10.4); Platelet Count 218 thou/uL (130-400); RBC Distribution Width 11.8 % (11.5-14.5); Red Blood Cell (RBC) Count 4.14 mill/uL (4.70-6.10); White Blood Cell (WBC) Count 11.6 thou/uL (4.8-10.8)
[2020-07-28 01:38] LABS: ALT (SGPT) 24 U/L (8-55); AST (SGOT) 32 U/L (5-34); Albumin 3.7 g/dL (3.5-5.0); Alkaline Phosphatase 88 U/L (40-110); Anion Gap 14 mmol/L (10-20); BUN (Urea Nitrogen) 16 mg/dL (8.4-25.7); Bilirubin, Total 0.3 mg/dL (0.2-1.2); Calc. Creatinine Clearance 0 mL/min (70-130); Calcium 8.7 mg/dL (7.8-10.44); Carbon Dioxide 28 mmol/L (22-29); Chloride 92 mmol/L (98-107); Globulin 3.8 g/dL (2.4-3.5); Glucose 155 mg/dL (70-105); Lipase 32 U/L (8-78); Potassium 4.8 mmol/L (3.5-5.1); Protein, Total 7.5 g/dL (6.0-8.3); Sodium 129 mmol/L (136-145)
[2020-07-28] MEDS ORDERED: cefTRIAXone\\ROCEPHIN 2 GM VIAL ONE (03:15)
== END 2020-07-28 08:40 | disposition home or self-care (01) ==
LOC: ERS 00:01
DX: N30.00 Acute cystitis without hematuria (principal); E87.1 Hypo-osmolality and hyponatremia; T83.011A Breakdown (mechanical) of indwelling urethral catheter, initial encounter; E11.9 Type 2 diabetes mellitus without complications; I11.0 Hypertensive heart disease with heart failure; I50.9 Heart failure, unspecified; E03.9 Hypothyroidism, unspecified; E78.5 Hyperlipidemia, unspecified; J44.9 Chronic obstructive pulmonary disease, unspecified; Z87.891 Personal history of nicotine dependence; Z79.899 Other long term (current) drug therapy; Z79.84 Long term (current) use of oral hypoglycemic drugs; Z79.82 Long term (current) use of aspirin; Z79.51 Long term (current) use of inhaled steroids
CPT/HCPCS: 80053; 81003; 81015; 83690; 85025; 87077; 87086; 87186; 96365; J0696

== ENCOUNTER 2020-08-19 16:33 | Emergency (ER) | payer MEDICARE, OTHER ==
[2020-08-19 17:45] LABS: #Basophils 0.1 thou/uL (0.0-0.2); #Eosinphils 0.3 thou/uL (0.0-0.7); #Lymphocytes 1.5 thou/uL (1.20-3.40); #Neutrophils 8.6 thou/uL (1.40-6.50); %Basophils 0.5 % (0.0-1.0); %Eosinophils 2.6 % (0.0-10.0); %Lymphocytes 13.4 % (21.0-51.0); %Monocytes 8.9 % (0.0-10.0); %Neutrophils 74.7 % (42.0-75.0); Mean Corpuscular HGB CONC 34.6 g/dL (32.0-36.0); Mean Corpuscular Hemoglobin 31.4 pg (27.0-31.0); Mean Corpuscular Volume 90.9 fL (78.0-98.0); Mean Platelet Volume 6.7 fL (7.4-10.4); Platelet Count 231 thou/uL (130-400); RBC Distribution Width 12.4 % (11.5-14.5); Red Blood Cell (RBC) Count 4.45 mill/uL (4.70-6.10); White Blood Cell (WBC) Count 11.5 thou/uL (4.8-10.8)
[2020-08-19 18:07] LABS: ALT (SGPT) 22 U/L (8-55); AST (SGOT) 15 U/L (5-34); Alkaline Phosphatase 89 U/L (40-110); Anion Gap 14 mmol/L (10-20); BUN (Urea Nitrogen) 24 mg/dL (8.4-25.7); Bilirubin, Total 0.2 mg/dL (0.2-1.2); Calc. Creatinine Clearance 0 mL/min (70-130); Calcium 9.1 mg/dL (7.8-10.44); Carbon Dioxide 25 mmol/L (22-29); Chloride 96 mmol/L (98-107); Globulin 3.2 g/dL (2.4-3.5); Glucose 114 mg/dL (70-105); Potassium 4.4 mmol/L (3.5-5.1); Protein, Total 7.2 g/dL (6.0-8.3); Sodium 131 mmol/L (136-145)
[2020-08-19 18:22] LABS: Bacteria/HPF None Seen HPF (None Seen); Bilirubin Negative (Negative); Blood, Urine Negative (Negative); Clarity Clear (Clear); Glucose, Urine (Dipstick) 200 mg/dL (Negative); Ketone, Urine Negative (Negative); Leukocyte 75 Leu/uL (Negative); Nitrite Negative (Negative); Protein, Urine (Dipstick) 30 mg/dL (Neg-Trace); RBC/HPF 0-3 HPF (0-3); Specific Gravity, Urine 1.007 (1.002-1.036); Squamous Epithelial None Seen HPF (0-3); Urobilinogen Normal mg/dL (Less than 2); pH, Urine 6.5 (5.0-9.0)
== END 2020-08-19 19:00 | disposition home or self-care (01) ==
LOC: ERS 16:33
DX: Z00.00 Encounter for general adult medical examination without abnormal findings (principal); E03.9 Hypothyroidism, unspecified; E11.9 Type 2 diabetes mellitus without complications; E78.5 Hyperlipidemia, unspecified; I11.0 Hypertensive heart disease with heart failure; I50.9 Heart failure, unspecified; J44.9 Chronic obstructive pulmonary disease, unspecified; Z87.891 Personal history of nicotine dependence
CPT/HCPCS: 36415; 71045; 80053; 81003; 81015; 83880; 84443; 84484; 85025; 87086; 93005; 94760

== ENCOUNTER 2021-03-15 18:43 | Inpatient (IN) | payer MEDICARE ==
[2021-03-15] MEDS ORDERED: Senokot S 8.6-50 MG TAB PO PRN (19:06)
[2021-03-15] MEDS ORDERED: Dextrose 5% in Water 1,000 ML IV PRN (19:06)
[2021-03-15] MEDS ORDERED: Dextrose 50% Abboject 50 ML SYRINGE SLOW IVP PRN (19:06)
[2021-03-15] MEDS ORDERED: Acetaminophen 325 MG TAB PO PRN (19:06)
[2021-03-15] MEDS ORDERED: Ondansetron PF 4 MG/2 ML Vial IVP PRN (19:06)
[2021-03-15] MEDS ORDERED: HumaLOG 300 UNITS/3 ML VIAL SC PRN (19:06)
[2021-03-15] MEDS ORDERED: Pharmacy to Dose : VANC/ABX'S IVPB PRN (19:48)
[2021-03-15] MEDS ORDERED: Sodium Chloride 0.9% 1,000 ML IV SCH (20:15)
[2021-03-15] MEDS ORDERED: Morphine 4 MG/ML VIAL SLOW IVP PRN (21:06)
[2021-03-15] MEDS ORDERED: Albuterol 200 PUFF (6.7GM INHALER) INH PRN (21:10)
[2021-03-15] MEDS ORDERED: Furosemide 20 MG/2 ML VIAL SLOW IVP SCH (21:15)
[2021-03-15 22:01] VITALS: BMI 24.0
[2021-03-15] MEDS: Divalproex Sodium 250 MG (DR) TAB PO SCH (22:24)
[2021-03-15] MEDS: Donepezil HCl 10 MG TAB PO SCH (22:25)
[2021-03-15] MEDS: risperiDONE 3 MG TAB PO SCH (22:25)
[2021-03-15] MEDS: Mometasone 200 MCG/Formoterol 5 MCG 120 PUFF INHALER INH SCH (22:59)
[2021-03-16] MEDS: Furosemide 20 MG/2 ML VIAL SLOW IVP SCH ×2 (05:02→17:20)
[2021-03-16] MEDS: Levothyroxine Sodium 25 MCG TAB PO SCH (05:02)
[2021-03-16] MEDS: HumaLOG 300 UNITS/3 ML VIAL SC PRN ×2 (05:02→12:56)
[2021-03-16] MEDS: HYDROcodone/Acetaminophen 5/325 mg Tablet PO PRN ×2 (06:11→20:38)
[2021-03-16 06:29] LABS: #Eosinphils 0.4 thou/uL (0.0-0.7); #Lymphocytes 1.1 thou/uL (1.20-3.40); #Monocytes 0.8 thou/uL (0.11-0.59); #Neutrophils 6.1 thou/uL (1.40-6.50); %Basophils 0.6 % (0.0-1.0); %Eosinophils 5.4 % (0.0-10.0); %Lymphocytes 12.6 % (21.0-51.0); %Monocytes 8.9 % (0.0-10.0); %Neutrophils 72.6 % (42.0-75.0); Hemoglobin 12.8 g/dL (14.0-18.0); Mean Corpuscular Hemoglobin 32.4 pg (27.0-31.0); Mean Corpuscular Volume 92.5 fL (78.0-98.0); Mean Platelet Volume 6.6 fL (7.4-10.4); Platelet Count 233 thou/uL (130-400); RBC Distribution Width 12.3 % (11.5-14.5); Red Blood Cell (RBC) Count 3.96 mill/uL (4.70-6.10); White Blood Cell (WBC) Count 8.3 thou/uL (4.8-10.8)
[2021-03-16 06:32] LABS: Hemoglobin A1c 8.6 % (4.0-6.0)
[2021-03-16 06:47] LABS: ALT (SGPT) 34 U/L (8-55); AST (SGOT) 24 U/L (5-34); Albumin 3.8 g/dL (3.5-5.0); Alkaline Phosphatase 94 U/L (40-110); Anion Gap 14 mmol/L (10-20); BUN (Urea Nitrogen) 9 mg/dL (8.4-25.7); Bilirubin, Total 0.5 mg/dL (0.2-1.2); Calc. Creatinine Clearance 47 mL/min (70-130); Calcium 8.9 mg/dL (7.8-10.44); Carbon Dioxide 25 mmol/L (22-29); Cardiac Risk 2.8 (Less than 4.5); Chloride 98 mmol/L (98-107); Cholesterol 195 mg/dl (< 200 Desired); Globulin 2.8 g/dL (2.4-3.5); Glucose 200 mg/dL (70-105); HDL Cholesterol 70 mg/dL (>60 Neg Risk); LDL Cholesterol, Calculated 74 mg/dL; Potassium 4.1 mmol/L (3.5-5.1); Protein, Total 6.6 g/dL (6.0-8.3); Sodium 133 mmol/L (136-145); Triglycerides 255 mg/dL (Less than 150)
[2021-03-16] MEDS: Famotidine/PF 20 mg/2ml Vial SLOW IVP SCH (08:08)
[2021-03-16] MEDS: FLUoxetine HCl 20 MG CAP PO SCH (08:09)
[2021-03-16] MEDS: Aspirin 81 mg Enteric Coated Tablet PO SCH (08:09)
[2021-03-16] MEDS: Benztropine 1 MG TAB PO SCH (08:09)
[2021-03-16] MEDS: Divalproex Sodium 250 MG (DR) TAB PO SCH ×2 (08:09→20:38)
[2021-03-16] MEDS: Finasteride 5 MG TAB PO SCH (08:09)
[2021-03-16] MEDS ORDERED: traZODone HCl 50 MG TAB PO PRN (08:36)
[2021-03-16] MEDS ORDERED: FLU VACC QS2021-22(6MOS UP)/PF 60 MCG/0.5 ML SYRINGE IM ONE (09:00)
[2021-03-16] MEDS ORDERED: Senokot S 8.6-50 MG TAB PO SCH (09:00)
[2021-03-16] MEDS ORDERED: Potassium Chloride 20 MEQ TAB PO SCH (09:00)
[2021-03-16] MEDS ORDERED: Non-Formulary Item 1 EACH (Cholecalciferol (Vitamin D3) [Vitamin D3] 1,000 UNIT Capsule) PO SCH (09:00)
[2021-03-16] MEDS: Mometasone 200 MCG/Formoterol 5 MCG 120 PUFF INHALER INH SCH ×2 (10:10→22:54)
[2021-03-16] MEDS: Lisinopril 2.5 MG TAB PO SCH (10:26)
[2021-03-16] MEDS: Cholecalciferol 1,000 UNITS (25 MCG) TAB PO SCH (10:26)
[2021-03-16] MEDS: HYDROcodone/Acetaminophen 10/325 mg Tablet PO PRN (11:45)
[2021-03-16] MEDS: Cefepime 2 GM in Sodium Chloride 0.9% 100 ML IVPB SCH (13:48)
[2021-03-16] MEDS ORDERED: Vancomycin 1 GM in Premix Bag 1 BAG IVPB SCH (16:00)
[2021-03-16] MEDS: Atorvastatin Calcium 10 MG TAB PO SCH (20:37)
[2021-03-16] MEDS: Donepezil HCl 10 MG TAB PO SCH (20:37)
[2021-03-16] MEDS: risperiDONE 3 MG TAB PO SCH (20:37)
[2021-03-16] MEDS: Amlodipine 5 MG TAB PO SCH (20:37)
[2021-03-16] MEDS: Senokot S 8.6-50 MG TAB PO SCH (20:38)
[2021-03-16] MEDS ORDERED: traZODone HCl 50 MG TAB PO SCH (21:00)
[2021-03-17] MEDS: Levothyroxine Sodium 25 MCG TAB PO SCH (05:34)
[2021-03-17] MEDS: Furosemide 20 MG/2 ML VIAL SLOW IVP SCH ×2 (05:34→18:18)
[2021-03-17] MEDS: HumaLOG 300 UNITS/3 ML VIAL SC PRN ×2 (05:34→11:37)
[2021-03-17 07:45] LABS: #Eosinphils 0.8 thou/uL (0.0-0.7); #Lymphocytes 1.1 thou/uL (1.20-3.40); #Monocytes 0.7 thou/uL (0.11-0.59); #Neutrophils 6.4 thou/uL (1.40-6.50); %Basophils 0.5 % (0.0-1.0); %Eosinophils 8.8 % (0.0-10.0); %Lymphocytes 11.8 % (21.0-51.0); %Neutrophils 70.9 % (42.0-75.0); Mean Corpuscular HGB CONC 35.2 g/dL (32.0-36.0); Mean Corpuscular Hemoglobin 32.7 pg (27.0-31.0); Mean Corpuscular Volume 92.9 fL (78.0-98.0); Mean Platelet Volume 6.9 fL (7.4-10.4); Platelet Count 246 thou/uL (130-400); RBC Distribution Width 12.2 % (11.5-14.5); Red Blood Cell (RBC) Count 3.98 mill/uL (4.70-6.10); White Blood Cell (WBC) Count 9.1 thou/uL (4.8-10.8)
[2021-03-17 08:08] LABS: ALT (SGPT) 37 U/L (8-55); AST (SGOT) 23 U/L (5-34); Albumin 3.9 g/dL (3.5-5.0); Alkaline Phosphatase 97 U/L (40-110); Anion Gap 13 mmol/L (10-20); BUN (Urea Nitrogen) 6 mg/dL (8.4-25.7); Bilirubin, Total 0.3 mg/dL (0.2-1.2); CRP (Inflammatory) 1.52 mg/dL (= or < 0.5); Calc. Creatinine Clearance 104 mL/min (70-130); Calcium 9.1 mg/dL (7.8-10.44); Carbon Dioxide 31 mmol/L (22-29); Chloride 93 mmol/L (98-107); Globulin 2.9 g/dL (2.4-3.5); Glucose 205 mg/dL (70-105); Magnesium 1.8 mg/dL (1.6-2.6); Phosphorus 2.8 mg/dL (2.3-4.7); Protein, Total 6.8 g/dL (6.0-8.3); Sodium 133 mmol/L (136-145)
[2021-03-17] MEDS: FLUoxetine HCl 20 MG CAP PO SCH (09:13)
[2021-03-17] MEDS: Lisinopril 2.5 MG TAB PO SCH (09:13)
[2021-03-17] MEDS: Cholecalciferol 1,000 UNITS (25 MCG) TAB PO SCH (09:13)
[2021-03-17] MEDS: Potassium Chloride 20 MEQ TAB PO SCH (09:14)
[2021-03-17] MEDS: Finasteride 5 MG TAB PO SCH (09:14)
[2021-03-17] MEDS: Aspirin 81 mg Enteric Coated Tablet PO SCH (09:14)
[2021-03-17] MEDS: Benztropine 1 MG TAB PO SCH (09:14)
[2021-03-17] MEDS: Senokot S 8.6-50 MG TAB PO SCH (09:14)
[2021-03-17] MEDS: Divalproex Sodium 250 MG (DR) TAB PO SCH ×2 (09:14→20:31)
[2021-03-17] MEDS: Famotidine/PF 20 mg/2ml Vial SLOW IVP SCH (09:15)
[2021-03-17] MEDS: HYDROcodone/Acetaminophen 10/325 mg Tablet PO PRN ×2 (11:23→20:30)
[2021-03-17] MEDS: Cefepime 2 GM in Sodium Chloride 0.9% 100 ML IVPB SCH (14:10)
[2021-03-17] MEDS: Mometasone 200 MCG/Formoterol 5 MCG 120 PUFF INHALER INH SCH ×2 (14:59→21:34)
[2021-03-17 15:48] LABS: Vancomycin, Trough 3.9 ug/mL
[2021-03-17] MEDS: Vancomycin 1 GM in Premix Bag 1 BAG IVPB SCH (16:29)
[2021-03-17] MEDS: Amlodipine 5 MG TAB PO SCH (20:31)
[2021-03-17] MEDS: risperiDONE 3 MG TAB PO SCH (20:32)
[2021-03-17] MEDS: Donepezil HCl 10 MG TAB PO SCH (20:32)
[2021-03-17] MEDS: Atorvastatin Calcium 10 MG TAB PO SCH (20:32)
[2021-03-18] MEDS: HYDROcodone/Acetaminophen 10/325 mg Tablet PO PRN (02:16)
[2021-03-18] MEDS: Vancomycin 1 GM in Premix Bag 1 BAG IVPB SCH (03:31)
[2021-03-18] MEDS: Furosemide 20 MG/2 ML VIAL SLOW IVP SCH (05:21)
[2021-03-18] MEDS: Levothyroxine Sodium 25 MCG TAB PO SCH (05:21)
[2021-03-18] MEDS: HumaLOG 300 UNITS/3 ML VIAL SC PRN ×2 (05:30→12:02)
[2021-03-18] MEDS: Mometasone 200 MCG/Formoterol 5 MCG 120 PUFF INHALER INH SCH (07:27)
[2021-03-18] MEDS: Famotidine/PF 20 mg/2ml Vial SLOW IVP SCH (08:41)
[2021-03-18] MEDS: Cholecalciferol 1,000 UNITS (25 MCG) TAB PO SCH (08:41)
[2021-03-18] MEDS: Lisinopril 2.5 MG TAB PO SCH (08:41)
[2021-03-18] MEDS: Divalproex Sodium 250 MG (DR) TAB PO SCH (08:41)
[2021-03-18] MEDS: Aspirin 81 mg Enteric Coated Tablet PO SCH (08:41)
[2021-03-18] MEDS: Benztropine 1 MG TAB PO SCH (08:41)
[2021-03-18] MEDS: FLUoxetine HCl 20 MG CAP PO SCH (08:41)
[2021-03-18] MEDS: Potassium Chloride 20 MEQ TAB PO SCH (08:41)
[2021-03-18] MEDS: Finasteride 5 MG TAB PO SCH (08:41)
[2021-03-18 12:01] VITALS: BP 152/83; TEMP 97.5
== END 2021-03-18 13:01 | disposition home or self-care (01) | DRG 699 ==
LOC: T4-A 18:43
PROVIDERS: ADMIT Internal Medicine; ATTEND Internal Medicine
PROC: 0T2BX0Z Change Drainage Device in Bladder, External Approach (ICD-10-PCS; principal; 2021-03-15)
DX: T83.510A Infection and inflammatory reaction due to cystostomy catheter, initial encounter (principal); I50.32 Chronic diastolic (congestive) heart failure; N17.9 Acute kidney failure, unspecified; E87.1 Hypo-osmolality and hyponatremia; I69.354 Hemiplegia and hemiparesis following cerebral infarction affecting left non-dominant side; Z68.43 Body mass index [BMI] 50.0-59.9, adult; K52.1 Toxic gastroenteritis and colitis; I13.0 Hypertensive heart and chronic kidney disease with heart failure and stage 1 through stage 4 chronic kidney disease, or unspecified chronic kidney disease; N39.0 Urinary tract infection, site not specified; N40.0 Benign prostatic hyperplasia without lower urinary tract symptoms; J44.9 Chronic obstructive pulmonary disease, unspecified; E78.5 Hyperlipidemia, unspecified; E78.00 Pure hypercholesterolemia, unspecified; F31.9 Bipolar disorder, unspecified; F20.9 Schizophrenia, unspecified; E11.65 Type 2 diabetes mellitus with hyperglycemia; F41.9 Anxiety disorder, unspecified; N18.30 Chronic kidney disease, stage 3 unspecified; M19.90 Unspecified osteoarthritis, unspecified site; E03.9 Hypothyroidism, unspecified; E11.22 Type 2 diabetes mellitus with diabetic chronic kidney disease; E66.01 Morbid (severe) obesity due to excess calories; N31.9 Neuromuscular dysfunction of bladder, unspecified; T36.95XA Adverse effect of unspecified systemic antibiotic, initial encounter; Z88.1 Allergy status to other antibiotic agents; Z88.8 Allergy status to other drugs, medicaments and biological substances; Z79.82 Long term (current) use of aspirin; Z79.899 Other long term (current) drug therapy; Z79.51 Long term (current) use of inhaled steroids; Z87.891 Personal history of nicotine dependence; Z79.4 Long term (current) use of insulin
CPT/HCPCS: 36415; 36416; 80048; 80053; 80061; 80202; 82040; 83036; 83605; 83735; 83880; 83970; 84100; 85025; 86140; 87045; 87046; 87427; 87449; 94640; J0692; J1815; J1940; J3370; J3490; J7050; J7620; S0028

== ENCOUNTER 2021-07-04 23:04 | Emergency (ER) | payer OTHER ==
[2021-07-05 00:06] LABS: #Eosinphils 0.4 thou/uL (0.0-0.7); #Lymphocytes 1.6 thou/uL (1.20-3.40); #Monocytes 1.1 thou/uL (0.11-0.59); #Neutrophils 7.6 thou/uL (1.40-6.50); %Basophils 0.4 % (0.0-1.0); %Eosinophils 3.7 % (0.0-10.0); %Lymphocytes 14.6 % (21.0-51.0); %Monocytes 10.6 % (0.0-10.0); %Neutrophils 70.7 % (42.0-75.0); Hemoglobin 11.9 g/dL (14.0-18.0); Mean Corpuscular HGB CONC 34.3 g/dL (32.0-36.0); Mean Corpuscular Hemoglobin 31.7 pg (27.0-31.0); Mean Corpuscular Volume 92.5 fL (78.0-98.0); Mean Platelet Volume 6.6 fL (7.4-10.4); Platelet Count 242 thou/uL (130-400); RBC Distribution Width 13.1 % (11.5-14.5); Red Blood Cell (RBC) Count 3.74 mill/uL (4.70-6.10); White Blood Cell (WBC) Count 10.8 thou/uL (4.8-10.8)
[2021-07-05 00:25] LABS: Bilirubin Negative (Negative); Blood, Urine 1+ (Negative); Clarity Turbid (Clear); Glucose, Urine (Dipstick) 50 mg/dL (Negative); Ketone, Urine Negative (Negative); Leukocyte 500 Leu/uL (Negative); Nitrite 1+ (Negative); Protein, Urine (Dipstick) Negative (Neg-Trace); RBC/HPF 0-3 HPF (0-3); Specific Gravity, Urine 1.003 (1.002-1.036); Squamous Epithelial None Seen HPF (0-3); Urobilinogen Normal mg/dL (Less than 2); WBC/HPF 21-50 HPF (0-3); pH, Urine 6.5 (5.0-9.0)
[2021-07-05 00:26] LABS: ALT (SGPT) 20 U/L (8-55); AST (SGOT) 18 U/L (5-34); Alkaline Phosphatase 75 U/L (40-110); Anion Gap 12 mmol/L (10-20); BUN (Urea Nitrogen) 10 mg/dL (8.4-25.7); Bilirubin, Total 0.3 mg/dL (0.2-1.2); Calc. Creatinine Clearance 0 mL/min (70-130); Calcium 9.4 mg/dL (7.8-10.44); Carbon Dioxide 27 mmol/L (22-29); Chloride 94 mmol/L (98-107); Globulin 2.6 g/dL (2.4-3.5); Glucose 146 mg/dL (70-105); Lipase 64 U/L (8-78); Potassium 4.2 mmol/L (3.5-5.1); Protein, Total 6.6 g/dL (6.0-8.3); Sodium 129 mmol/L (136-145)
[2021-07-05 00:27] LABS: Bacteria/HPF 1+ HPF (None Seen)
== END 2021-07-05 01:42 | disposition home or self-care (01) ==
LOC: ERS 23:04
DX: N39.0 Urinary tract infection, site not specified (principal); E87.1 Hypo-osmolality and hyponatremia; R79.89 Other specified abnormal findings of blood chemistry; I11.0 Hypertensive heart disease with heart failure; I50.9 Heart failure, unspecified; E78.5 Hyperlipidemia, unspecified; J44.9 Chronic obstructive pulmonary disease, unspecified; E78.00 Pure hypercholesterolemia, unspecified; Z87.891 Personal history of nicotine dependence
CPT/HCPCS: 36415; 71045; 74177; 80053; 81003; 81015; 83690; 84484; 85025; 87086; 93005

== ENCOUNTER 2021-10-18 00:13 | Inpatient (IN) | payer MEDICARE, OTHER ==
[2021-10-18 00:51] LABS: #Eosinphils 0.3 thou/uL (0.0-0.7); #Lymphocytes 1.6 thou/uL (1.20-3.40); #Monocytes 1.2 thou/uL (0.11-0.59); #Neutrophils 10.8 thou/uL (1.40-6.50); %Basophils 0.3 % (0.0-1.0); %Eosinophils 2.4 % (0.0-10.0); %Lymphocytes 11.5 % (21.0-51.0); %Monocytes 8.6 % (0.0-10.0); %Neutrophils 77.2 % (42.0-75.0); Hemoglobin 12.1 g/dL (14.0-18.0); Mean Corpuscular HGB CONC 34.2 g/dL (32.0-36.0); Mean Corpuscular Hemoglobin 30.9 pg (27.0-31.0); Mean Corpuscular Volume 90.4 fL (78.0-98.0); Mean Platelet Volume 6.6 fL (7.4-10.4); Platelet Count 237 thou/uL (130-400); RBC Distribution Width 13.8 % (11.5-14.5); Red Blood Cell (RBC) Count 3.92 mill/uL (4.70-6.10)
[2021-10-18 01:03] LABS: Prothrombin Time 31.9 sec (12.0-14.7)
[2021-10-18 01:04] LABS: PTT 48.9 sec (22.9-36.1)
[2021-10-18 01:12] LABS: Acetaminophen Less than 10.0 mcg/mL (10.0-30.0); Alcohol Less than 10 mg/dL (Less than 10); Salicylate Less than 8.0 mg/dL (15.0-30.0)
[2021-10-18 01:14] LABS: ALT (SGPT) 21 U/L (8-55); AST (SGOT) 23 U/L (5-34); Alkaline Phosphatase 72 U/L (40-110); Anion Gap 13 mmol/L (10-20); BUN (Urea Nitrogen) 25 mg/dL (8.4-25.7); Bilirubin, Total 0.4 mg/dL (0.2-1.2); CK (CPK) 375 U/L (30-200); Calc. Creatinine Clearance 0 mL/min (70-130); Calcium 9.7 mg/dL (7.8-10.44); Carbon Dioxide 26 mmol/L (22-29); Chloride 91 mmol/L (98-107); Globulin 3.1 g/dL (2.4-3.5); Glucose 118 mg/dL (70-105); Potassium 3.8 mmol/L (3.5-5.1); Protein, Total 7.1 g/dL (6.0-8.3); Sodium 126 mmol/L (136-145)
[2021-10-18 01:32] LABS: Clarity Hazy (Clear)
[2021-10-18 01:33] LABS: Bilirubin Small (Negative); Blood, Urine Large (Negative); Glucose, Urine (Dipstick) Negative (Negative); Ketone, Urine Negative (Negative); Leukocyte Large Leu/uL (Negative); Nitrite Positive (Negative); Protein, Urine (Dipstick) 100 mg/dL (Neg-Trace); Specific Gravity, Urine 1.005 (1.002-1.036); Urobilinogen 0.2 mg/dL (Less than 2); pH, Urine 7.5 (5.0-9.0)
[2021-10-18 01:34] LABS: Bacteria/HPF 2+ HPF (None Seen); Squamous Epithelial None Seen HPF (0-3)
[2021-10-18 01:42] LABS: Amphetamine Not Detected (NotDetected); Barbiturates Screen Not Detected (NotDetected); Benzodiazepine Screen Not Detected (NotDetected); Cocaine Metabolite Screen Not Detected (NotDetected); Methadone Not Detected (NotDetected); Methamphetamine Not Detected (NotDetected); Opiate Screen Not Detected (NotDetected); Oxycodone Screen Not Detected (NotDetected); Phencyclidine (PCP) Not Detected (NotDetected); THC/Cannabinoid Screen Not Detected (NotDetected); Tricyclic Screen Not Detected (NotDetected)
[2021-10-18] MEDS ORDERED: cefTRIAXone\\ROCEPHIN 1 GM VIAL ONE (04:53)
[2021-10-18] MEDS ORDERED: HYDROcodone/Acetaminophen 5/325 mg Tablet PO PRN (08:56)
[2021-10-18] MEDS ORDERED: Senokot S 8.6-50 MG TAB PO PRN (08:56)
[2021-10-18] MEDS ORDERED: Ondansetron PF 4 MG/2 ML Vial IVP PRN (08:56)
[2021-10-18] MEDS ORDERED: Iopamidol-370 76% 500 ML 1 ML ONE (09:42)
[2021-10-18 09:54] LABS: Anion Gap 14 mmol/L (10-20); BUN (Urea Nitrogen) 20 mg/dL (8.4-25.7); Calc. Creatinine Clearance 0 mL/min (70-130); Calcium 9.2 mg/dL (7.8-10.44); Carbon Dioxide 26 mmol/L (22-29); Chloride 97 mmol/L (98-107); Glucose 115 mg/dL (70-105); Potassium 4.5 mmol/L (3.5-5.1); Sodium 132 mmol/L (136-145)
[2021-10-18] MEDS ORDERED: Finasteride 5 MG TAB PO SCH (10:00)
[2021-10-18] MEDS ORDERED: Levothyroxine Sodium 25 MCG TAB PO SCH (10:00)
[2021-10-18] MEDS ORDERED: Aspirin 81 mg Enteric Coated Tablet PO SCH (10:00)
[2021-10-18] MEDS ORDERED: FLUoxetine HCl 20 MG CAP PO SCH (10:00)
[2021-10-18] MEDS ORDERED: Dextrose 5% in Water 1,000 ML IV PRN (11:26)
[2021-10-18] MEDS ORDERED: Dextrose 50% Abboject 50 ML SYRINGE SLOW IVP PRN (11:26)
[2021-10-18 11:40] LABS: Potassium, Urine 15.9 mmol/L
[2021-10-18] MEDS: glipiZIDE 5 MG TAB PO SCH (16:04)
[2021-10-18] MEDS: Dronedarone HCl 400 MG TAB PO SCH (16:04)
[2021-10-18 16:08] VITALS: BMI 44.3
[2021-10-18] MEDS: Amlodipine 10 MG TAB PO SCH (20:41)
[2021-10-18] MEDS: Benztropine 1 MG TAB PO SCH (20:42)
[2021-10-18] MEDS: Divalproex Sodium 250 MG (DR) TAB PO SCH (21:06)
[2021-10-19 00:13] LABS: SARS-CoV-2 PCR by NAA Not Detected (NotDetected)
[2021-10-19] MEDS: Levothyroxine Sodium 25 MCG TAB PO SCH (05:26)
[2021-10-19] MEDS: cefTRIAXone\\ROCEPHIN 1 GM in Sodium Chloride 0.9% 100 ML IVPB SCH (05:30)
[2021-10-19 06:15] LABS: #Eosinphils 0.3 thou/uL (0.0-0.7); #Lymphocytes 1.4 thou/uL (1.20-3.40); #Neutrophils 6.9 thou/uL (1.40-6.50); %Basophils 0.4 % (0.0-1.0); %Eosinophils 2.8 % (0.0-10.0); %Lymphocytes 15.1 % (21.0-51.0); %Neutrophils 71.7 % (42.0-75.0); Hemoglobin 12.9 g/dL (14.0-18.0); Mean Corpuscular Hemoglobin 30.6 pg (27.0-31.0); Mean Corpuscular Volume 92.7 fL (78.0-98.0); Mean Platelet Volume 6.8 fL (7.4-10.4); Platelet Count 230 thou/uL (130-400); RBC Distribution Width 13.9 % (11.5-14.5); White Blood Cell (WBC) Count 9.6 thou/uL (4.8-10.8)
[2021-10-19 06:55] LABS: Anion Gap 13 mmol/L (10-20); BUN (Urea Nitrogen) 18 mg/dL (8.4-25.7); Calc. Creatinine Clearance 95 mL/min (70-130); Calcium 9.1 mg/dL (7.8-10.44); Carbon Dioxide 24 mmol/L (22-29); Chloride 100 mmol/L (98-107); Glucose 124 mg/dL (70-105); Potassium 4.4 mmol/L (3.5-5.1); Sodium 133 mmol/L (136-145)
[2021-10-19] MEDS: Dronedarone HCl 400 MG TAB PO SCH ×2 (08:54→16:32)
[2021-10-19] MEDS: Aspirin 81 mg Enteric Coated Tablet PO SCH (08:54)
[2021-10-19] MEDS: Finasteride 5 MG TAB PO SCH (08:54)
[2021-10-19] MEDS: FLUoxetine HCl 20 MG CAP PO SCH (08:54)
[2021-10-19] MEDS: glipiZIDE 5 MG TAB PO SCH (16:32)
[2021-10-19] MEDS: Benztropine 1 MG TAB PO SCH (21:01)
[2021-10-19] MEDS: Amlodipine 10 MG TAB PO SCH (21:02)
[2021-10-19] MEDS: Divalproex Sodium 250 MG (DR) TAB PO SCH (21:03)
[2021-10-20] MEDS: cefTRIAXone\\ROCEPHIN 1 GM in Sodium Chloride 0.9% 100 ML IVPB SCH (04:50)
[2021-10-20] MEDS: Levothyroxine Sodium 25 MCG TAB PO SCH (06:13)
[2021-10-20 06:47] LABS: #Eosinphils 0.5 thou/uL (0.0-0.7); #Lymphocytes 1.2 thou/uL (1.20-3.40); #Monocytes 1.1 thou/uL (0.11-0.59); #Neutrophils 8.4 thou/uL (1.40-6.50); %Basophils 0.4 % (0.0-1.0); %Eosinophils 4.5 % (0.0-10.0); %Lymphocytes 10.7 % (21.0-51.0); %Monocytes 9.9 % (0.0-10.0); %Neutrophils 74.5 % (42.0-75.0); Hemoglobin 13.5 g/dL (14.0-18.0); Mean Corpuscular HGB CONC 33.4 g/dL (32.0-36.0); Mean Corpuscular Hemoglobin 31.1 pg (27.0-31.0); Mean Corpuscular Volume 93.1 fL (78.0-98.0); Platelet Count 232 thou/uL (130-400); RBC Distribution Width 13.7 % (11.5-14.5); Red Blood Cell (RBC) Count 4.34 mill/uL (4.70-6.10); White Blood Cell (WBC) Count 11.2 thou/uL (4.8-10.8)
[2021-10-20 06:59] LABS: INR-International Normal Ratio 1.7; Prothrombin Time 19.8 sec (12.0-14.7)
[2021-10-20 07:15] LABS: Anion Gap 13 mmol/L (10-20); BUN (Urea Nitrogen) 15 mg/dL (8.4-25.7); Calc. Creatinine Clearance 100 mL/min (70-130); Calcium 9.1 mg/dL (7.8-10.44); Carbon Dioxide 24 mmol/L (22-29); Chloride 103 mmol/L (98-107); Glucose 102 mg/dL (70-105); Potassium 4.4 mmol/L (3.5-5.1); Sodium 136 mmol/L (136-145)
[2021-10-20] MEDS: Aspirin 81 mg Enteric Coated Tablet PO SCH (08:36)
[2021-10-20] MEDS: Finasteride 5 MG TAB PO SCH (08:36)
[2021-10-20] MEDS: Dronedarone HCl 400 MG TAB PO SCH ×2 (08:36→16:30)
[2021-10-20] MEDS: FLUoxetine HCl 20 MG CAP PO SCH (08:37)
[2021-10-20] MEDS ORDERED: Senokot S 8.6-50 MG TAB PO PRN (09:29)
[2021-10-20] MEDS: Acetaminophen 325 MG TAB PO PRN ×2 (16:30→22:24)
[2021-10-20] MEDS: glipiZIDE 5 MG TAB PO SCH (16:30)
[2021-10-20] MEDS: Warfarin Sodium 7.5 MG TAB PO SCH (16:30)
[2021-10-20] MEDS: Insulin Regular 300 UNITS/3 ML VIAL SC PRN (16:37)
[2021-10-20] MEDS: Divalproex Sodium 250 MG (DR) TAB PO SCH (20:57)
[2021-10-20] MEDS: Benztropine 1 MG TAB PO SCH (20:57)
[2021-10-20] MEDS: Donepezil HCl 10 MG TAB PO SCH (20:58)
[2021-10-20] MEDS: risperiDONE 3 MG TAB PO SCH (20:58)
[2021-10-20] MEDS: Amlodipine 10 MG TAB PO SCH (20:58)
[2021-10-20] MEDS: Atorvastatin Calcium 10 MG TAB PO SCH (20:58)
[2021-10-21] MEDS: cefTRIAXone\\ROCEPHIN 1 GM in Sodium Chloride 0.9% 100 ML IVPB SCH (05:24)
[2021-10-21] MEDS: Levothyroxine Sodium 25 MCG TAB PO SCH (05:24)
[2021-10-21] MEDS: FLUoxetine HCl 10 MG CAP PO SCH (07:53)
[2021-10-21] MEDS: Finasteride 5 MG TAB PO SCH (07:53)
[2021-10-21] MEDS: Furosemide 20 MG TAB PO SCH (07:54)
[2021-10-21] MEDS: Dronedarone HCl 400 MG TAB PO SCH ×2 (07:54→16:55)
[2021-10-21] MEDS: Aspirin 81 mg Enteric Coated Tablet PO SCH (07:54)
[2021-10-21 08:02] LABS: #Eosinphils 0.4 thou/uL (0.0-0.7); #Lymphocytes 1.2 thou/uL (1.20-3.40); %Basophils 0.4 % (0.0-1.0); %Lymphocytes 10.9 % (21.0-51.0); %Neutrophils 75.5 % (42.0-75.0); Hemoglobin 13.7 g/dL (14.0-18.0); Mean Corpuscular HGB CONC 33.5 g/dL (32.0-36.0); Mean Corpuscular Hemoglobin 31.3 pg (27.0-31.0); Mean Corpuscular Volume 93.5 fL (78.0-98.0); Mean Platelet Volume 6.7 fL (7.4-10.4); Platelet Count 258 thou/uL (130-400); RBC Distribution Width 13.9 % (11.5-14.5); Red Blood Cell (RBC) Count 4.37 mill/uL (4.70-6.10); White Blood Cell (WBC) Count 10.6 thou/uL (4.8-10.8)
[2021-10-21 08:07] LABS: INR-International Normal Ratio 1.4; Prothrombin Time 17.5 sec (12.0-14.7)
[2021-10-21 08:18] LABS: Anion Gap 13 mmol/L (10-20); BUN (Urea Nitrogen) 15 mg/dL (8.4-25.7); Calc. Creatinine Clearance 100 mL/min (70-130); Calcium 9.2 mg/dL (7.8-10.44); Carbon Dioxide 26 mmol/L (22-29); Chloride 102 mmol/L (98-107); Glucose 125 mg/dL (70-105); Potassium 4.5 mmol/L (3.5-5.1); Sodium 136 mmol/L (136-145)
[2021-10-21] MEDS: Warfarin Sodium 7.5 MG TAB PO SCH (16:55)
[2021-10-21] MEDS: glipiZIDE 5 MG TAB PO SCH (16:55)
[2021-10-21] MEDS: Insulin Regular 300 UNITS/3 ML VIAL SC PRN (16:55)
[2021-10-21] MEDS: risperiDONE 3 MG TAB PO SCH (20:13)
[2021-10-21] MEDS: Amlodipine 10 MG TAB PO SCH (20:14)
[2021-10-21] MEDS: Benztropine 1 MG TAB PO SCH (20:14)
[2021-10-21] MEDS: Donepezil HCl 10 MG TAB PO SCH (20:14)
[2021-10-21] MEDS: Atorvastatin Calcium 10 MG TAB PO SCH (20:14)
[2021-10-21] MEDS: Divalproex Sodium 250 MG (DR) TAB PO SCH (20:14)
[2021-10-22] MEDS: cefTRIAXone\\ROCEPHIN 1 GM in Sodium Chloride 0.9% 100 ML IVPB SCH (05:35)
[2021-10-22] MEDS: Levothyroxine Sodium 25 MCG TAB PO SCH (05:35)
[2021-10-22 07:35] LABS: #Eosinphils 0.6 thou/uL (0.0-0.7); #Lymphocytes 1.3 thou/uL (1.20-3.40); #Neutrophils 6.9 thou/uL (1.40-6.50); %Basophils 0.5 % (0.0-1.0); %Eosinophils 6.1 % (0.0-10.0); %Lymphocytes 12.7 % (21.0-51.0); %Monocytes 10.6 % (0.0-10.0); %Neutrophils 70.1 % (42.0-75.0); Hemoglobin 13.9 g/dL (14.0-18.0); Mean Corpuscular Hemoglobin 30.6 pg (27.0-31.0); Mean Corpuscular Volume 92.6 fL (78.0-98.0); Mean Platelet Volume 6.8 fL (7.4-10.4); Platelet Count 238 thou/uL (130-400); RBC Distribution Width 13.8 % (11.5-14.5); Red Blood Cell (RBC) Count 4.55 mill/uL (4.70-6.10); White Blood Cell (WBC) Count 9.8 thou/uL (4.8-10.8)
[2021-10-22 07:48] LABS: INR-International Normal Ratio 1.5; Prothrombin Time 18.2 sec (12.0-14.7)
[2021-10-22 08:02] LABS: Anion Gap 14 mmol/L (10-20); BUN (Urea Nitrogen) 20 mg/dL (8.4-25.7); Calc. Creatinine Clearance 91 mL/min (70-130); Calcium 9.5 mg/dL (7.8-10.44); Carbon Dioxide 25 mmol/L (22-29); Chloride 103 mmol/L (98-107); Glucose 125 mg/dL (70-105); Potassium 4.4 mmol/L (3.5-5.1); Sodium 138 mmol/L (136-145)
[2021-10-22] MEDS: Furosemide 20 MG TAB PO SCH (08:46)
[2021-10-22] MEDS: Aspirin 81 mg Enteric Coated Tablet PO SCH (08:46)
[2021-10-22] MEDS: FLUoxetine HCl 10 MG CAP PO SCH (08:47)
[2021-10-22] MEDS: Dronedarone HCl 400 MG TAB PO SCH ×2 (08:47→16:52)
[2021-10-22] MEDS: Finasteride 5 MG TAB PO SCH (08:47)
[2021-10-22 15:22] LABS: SARS-CoV-2 PCR by NAA Not Detected (NotDetected)
[2021-10-22] MEDS: glipiZIDE 5 MG TAB PO SCH (16:52)
[2021-10-22] MEDS: Insulin Regular 300 UNITS/3 ML VIAL SC PRN (16:53)
[2021-10-22] MEDS: Warfarin Sodium 7.5 MG TAB PO SCH (17:19)
[2021-10-22] MEDS: Benztropine 1 MG TAB PO SCH (20:31)
[2021-10-22] MEDS: Divalproex Sodium 250 MG (DR) TAB PO SCH (20:31)
[2021-10-22] MEDS: Amlodipine 10 MG TAB PO SCH (20:33)
[2021-10-22] MEDS: Donepezil HCl 10 MG TAB PO SCH (20:33)
[2021-10-22] MEDS: Atorvastatin Calcium 10 MG TAB PO SCH (20:34)
[2021-10-22] MEDS: risperiDONE 3 MG TAB PO SCH (20:34)
[2021-10-23] MEDS: Acetaminophen 325 MG TAB PO PRN (03:53)
[2021-10-23] MEDS: cefTRIAXone\\ROCEPHIN 1 GM in Sodium Chloride 0.9% 100 ML IVPB SCH (05:28)
[2021-10-23] MEDS: Levothyroxine Sodium 25 MCG TAB PO SCH (05:28)
[2021-10-23 06:49] LABS: #Eosinphils 0.6 thou/uL (0.0-0.7); #Lymphocytes 1.3 thou/uL (1.20-3.40); #Neutrophils 6.9 thou/uL (1.40-6.50); %Basophils 0.3 % (0.0-1.0); %Lymphocytes 13.2 % (21.0-51.0); %Monocytes 9.8 % (0.0-10.0); %Neutrophils 70.7 % (42.0-75.0); Hemoglobin 13.9 g/dL (14.0-18.0); Mean Corpuscular HGB CONC 32.1 g/dL (32.0-36.0); Mean Corpuscular Hemoglobin 29.9 pg (27.0-31.0); Mean Corpuscular Volume 92.9 fL (78.0-98.0); Mean Platelet Volume 6.7 fL (7.4-10.4); Platelet Count 261 thou/uL (130-400); RBC Distribution Width 13.9 % (11.5-14.5); Red Blood Cell (RBC) Count 4.64 mill/uL (4.70-6.10); White Blood Cell (WBC) Count 9.8 thou/uL (4.8-10.8)
[2021-10-23 06:59] LABS: INR-International Normal Ratio 1.6; Prothrombin Time 18.8 sec (12.0-14.7)
[2021-10-23 07:20] LABS: Anion Gap 11 mmol/L (10-20); BUN (Urea Nitrogen) 23 mg/dL (8.4-25.7); Calc. Creatinine Clearance 84 mL/min (70-130); Calcium 9.2 mg/dL (7.8-10.44); Carbon Dioxide 26 mmol/L (22-29); Chloride 103 mmol/L (98-107); Glucose 130 mg/dL (70-105); Potassium 4.4 mmol/L (3.5-5.1); Sodium 136 mmol/L (136-145)
[2021-10-23] MEDS: FLUoxetine HCl 10 MG CAP PO SCH (08:14)
[2021-10-23] MEDS: Aspirin 81 mg Enteric Coated Tablet PO SCH (08:14)
[2021-10-23] MEDS: Dronedarone HCl 400 MG TAB PO SCH ×2 (08:14→17:17)
[2021-10-23] MEDS: Finasteride 5 MG TAB PO SCH (08:14)
[2021-10-23] MEDS: Furosemide 20 MG TAB PO SCH (08:15)
[2021-10-23] MEDS: glipiZIDE 5 MG TAB PO SCH (17:17)
[2021-10-23] MEDS: Warfarin Sodium 7.5 MG TAB PO SCH (17:17)
[2021-10-23] MEDS: Divalproex Sodium 250 MG (DR) TAB PO SCH (20:43)
[2021-10-23] MEDS: Benztropine 1 MG TAB PO SCH (20:43)
[2021-10-23] MEDS: risperiDONE 3 MG TAB PO SCH (20:44)
[2021-10-23] MEDS: Atorvastatin Calcium 10 MG TAB PO SCH (20:44)
[2021-10-23] MEDS: Amlodipine 10 MG TAB PO SCH (20:44)
[2021-10-23] MEDS: Donepezil HCl 10 MG TAB PO SCH (20:44)
[2021-10-24 06:09] LABS: INR-International Normal Ratio 1.8; Prothrombin Time 20.9 sec (12.0-14.7)
[2021-10-24 06:10] LABS: #Eosinphils 0.5 thou/uL (0.0-0.7); #Lymphocytes 1.3 thou/uL (1.20-3.40); #Neutrophils 7.4 thou/uL (1.40-6.50); %Basophils 0.3 % (0.0-1.0); %Eosinophils 5.1 % (0.0-10.0); %Lymphocytes 12.4 % (21.0-51.0); %Monocytes 9.4 % (0.0-10.0); %Neutrophils 72.8 % (42.0-75.0); Hemoglobin 14.2 g/dL (14.0-18.0); Mean Corpuscular HGB CONC 32.4 g/dL (32.0-36.0); Mean Corpuscular Hemoglobin 30.2 pg (27.0-31.0); Mean Platelet Volume 6.7 fL (7.4-10.4); Platelet Count 247 thou/uL (130-400); RBC Distribution Width 13.7 % (11.5-14.5); Red Blood Cell (RBC) Count 4.71 mill/uL (4.70-6.10); White Blood Cell (WBC) Count 10.2 thou/uL (4.8-10.8)
[2021-10-24] MEDS: Levothyroxine Sodium 25 MCG TAB PO SCH (06:22)
[2021-10-24 06:24] LABS: Anion Gap 13 mmol/L (10-20); BUN (Urea Nitrogen) 27 mg/dL (8.4-25.7); Calc. Creatinine Clearance 89 mL/min (70-130); Calcium 9.6 mg/dL (7.8-10.44); Carbon Dioxide 29 mmol/L (22-29); Chloride 102 mmol/L (98-107); Glucose 128 mg/dL (70-105); Potassium 4.3 mmol/L (3.5-5.1); Sodium 140 mmol/L (136-145)
[2021-10-24] MEDS: FLUoxetine HCl 10 MG CAP PO SCH (08:45)
[2021-10-24] MEDS: Dronedarone HCl 400 MG TAB PO SCH ×2 (08:45→16:21)
[2021-10-24] MEDS: Finasteride 5 MG TAB PO SCH (08:45)
[2021-10-24] MEDS: Aspirin 81 mg Enteric Coated Tablet PO SCH (08:45)
[2021-10-24] MEDS: Warfarin Sodium 7.5 MG TAB PO SCH (16:21)
[2021-10-24] MEDS: glipiZIDE 5 MG TAB PO SCH (16:21)
[2021-10-24] MEDS: Benztropine 1 MG TAB PO SCH (20:04)
[2021-10-24] MEDS: Atorvastatin Calcium 10 MG TAB PO SCH (20:05)
[2021-10-24] MEDS: risperiDONE 3 MG TAB PO SCH (20:05)
[2021-10-24] MEDS: Divalproex Sodium 250 MG (DR) TAB PO SCH (20:05)
[2021-10-24] MEDS: Donepezil HCl 10 MG TAB PO SCH (20:05)
[2021-10-24] MEDS: Amlodipine 10 MG TAB PO SCH (20:05)
[2021-10-24 20:52] VITALS: BP 121/66; TEMP 98.3
== END 2021-10-24 22:18 | disposition short-term general hospital (02) | DRG 699 ==
LOC: ERS 00:13 → T4-B 05:21
PROVIDERS: ADMIT Internal Medicine; ATTEND Internal Medicine
DX: T83.511A Infection and inflammatory reaction due to indwelling urethral catheter, initial encounter (principal); N30.01 Acute cystitis with hematuria; E22.2 Syndrome of inappropriate secretion of antidiuretic hormone; I13.0 Hypertensive heart and chronic kidney disease with heart failure and stage 1 through stage 4 chronic kidney disease, or unspecified chronic kidney disease; Z68.41 Body mass index [BMI] 40.0-44.9, adult; R45.851 Suicidal ideations; Y84.6 Urinary catheterization as the cause of abnormal reaction of the patient, or of later complication, without mention of misadventure at the time of the procedure; E78.5 Hyperlipidemia, unspecified; F31.9 Bipolar disorder, unspecified; F25.9 Schizoaffective disorder, unspecified; F41.9 Anxiety disorder, unspecified; I50.9 Heart failure, unspecified; I48.0 Paroxysmal atrial fibrillation; E66.9 Obesity, unspecified; E11.22 Type 2 diabetes mellitus with diabetic chronic kidney disease; N18.30 Chronic kidney disease, stage 3 unspecified; J44.9 Chronic obstructive pulmonary disease, unspecified; D63.1 Anemia in chronic kidney disease; Z87.891 Personal history of nicotine dependence; Z88.1 Allergy status to other antibiotic agents; Z88.8 Allergy status to other drugs, medicaments and biological substances; Z79.899 Other long term (current) drug therapy; Z79.84 Long term (current) use of oral hypoglycemic drugs; Z79.82 Long term (current) use of aspirin; Z79.02 Long term (current) use of antithrombotics/antiplatelets
CPT/HCPCS: 36415; 36416; 74177; 80048; 80053; 80306; 80307; 81003; 81015; 82436; 82550; 83930; 83935; 84133; 84300; 84443; 85025; 85610; 85730; 87040; 87086; 93005; 94640; 96374; J0696; J1815; J3490; J7620; Q9967; U0003; U0005